=== PATIENT | male | born 1935 | race Caucasian/White ===

== ENCOUNTER → 2016-10-16 | Outpatient (CLI) | payer OTHER | LOC: MMPC 09:00 | PROVIDERS: ATTEND Physician Assistant Medical | DX: K13.79 Other lesions of oral mucosa (principal) | CPT/HCPCS: 99213; G0463 ==

== ENCOUNTER → 2016-10-19 | Outpatient (CLI) | payer OTHER ==
[2016-10-19 08:38] LABS: BASOPHILS # (AUTO) 0.05 10*3/UL; BASOPHILS % (AUTO) 0.8 % (0-1); EOSINOPHILS % (AUTO) 5.4 % (0-8); HEMATOCRIT 41.9 % (42.0-52.0); HEMOGLOBIN 13.7 g/dL (14.0-18.0); IMM GRAN % (AUTO) 0 % (0-5); IMM GRAN# (AUTO) 0 10*3/UL; LYMPHOCYTES # (AUTO) 1.44 10*3/uL; LYMPHOCYTES % (AUTO) 22.7 % (10-50); MEAN CORPUSCULAR HGB CONC 32.7 g/dL (33-37); MEAN PLATELET VOLUME 9.5 FL (7.4-12.2); MONOCYTES # (AUTO) 0.59 10*3/UL (0.3-0.8); MONOCYTES % (AUTO) 9.3 % (5-15); NEUTROPHILS # (AUTO) 3.93 10*3/UL; NEUTROPHILS % (AUTO) 61.8 % (50-80); RDW COEFFICIENT OF VARIATION 13.6 % (11.5-14.5); RED BLOOD COUNT 4.56 10^6/uL (4.70-6.10); WHITE BLOOD COUNT 6.35 10^3/uL (4.8-10.8)
[2016-10-19 08:54] LABS: PLATELET MORPHOLOGY COMMENT NORMAL MORPHOLOGY (NORM)
[2016-10-19 09:04] LABS: BILIRUBIN,TOTAL 0.9 mg/dL (0.3-1.2); BLOOD UREA NITROGEN 15 mg/dL (7-22); BUN/CREATININE RATIO 16.66 (6-20); CALCIUM 9.4 mg/dL (8.7-10.7); CHLORIDE 102 meq/L (98-112); CREATININE 0.9 mg/dL (0.70-1.50); GLUCOSE 80 mg/dL (78-110); POTASSIUM 4.4 meq/L (3.8-5.2); SODIUM 142 meq/L (135-145)
[2016-10-19 09:05] LABS: ASPARTATE AMINO TRANSFERASE 37 IU/L (21-57); HDL CHOLESTEROL 53 mg/dL (40-150); TOTAL PROTEIN 8.1 g/dL (6.1-8.0); TRIGLYCERIDES 81 mg/dL (44-200)
== END ==
LOC: LAB 07:57
PROVIDERS: ATTEND Internal Medicine
DX: E78.5 Hyperlipidemia, unspecified (principal); J44.9 Chronic obstructive pulmonary disease, unspecified; N40.0 Benign prostatic hyperplasia without lower urinary tract symptoms; Z12.5 Encounter for screening for malignant neoplasm of prostate
CPT/HCPCS: 36415; 80053; 80061; 82550; 84443; 85025; G0103

== ENCOUNTER → 2016-10-23 | Outpatient (CLI) | payer OTHER ==
[2016-10-24 13:15] LABS: A/G RATIO 0.91 (()); ALB PEP SER 3.4 g/dL (3.4-4.7); ALP1 GLOB 0.3 g/dL (0.1-0.3); GAMMA GLOBS 1.6 g/dL (0.6-1.6); TOT PRT SERUM 7.2 g/dL (6.3 - 7.9)
[2016-10-24 14:22] LABS: IMPRESSION SEE COMMENTS (())
== END ==
LOC: MOB LAB 09:16
PROVIDERS: ATTEND Internal Medicine
DX: E88.09 Other disorders of plasma-protein metabolism, not elsewhere classified (principal); R74.8 Abnormal levels of other serum enzymes
CPT/HCPCS: 82085; 84155; 84165; 99214

== ENCOUNTER → 2016-11-06 | Outpatient (CLI) | payer OTHER | LOC: MMPC 10:00 | PROVIDERS: ATTEND Physician Assistant | DX: R29.6 Repeated falls (principal); R26.81 Unsteadiness on feet; R26.89 Other abnormalities of gait and mobility; Z98.1 Arthrodesis status | CPT/HCPCS: 99214; G0463 ==

== ENCOUNTER → 2016-11-20 | Outpatient (CLI) | payer OTHER ==
--- NOTE | 2016-11-20 13:09 | DI ---
MRI CERVICAL SPINE W/O CN,11/20/2016 8:53 AM: Clinical History: The cervical myelopathy. Previous Exam: None at this facility. Findings: Multiplanar MR images are obtained through the cervical spine without contrast. The posterior fossa is unremarkable. Alignment is anatomic. Signal within the spinal cord is unremarkable. There is normal caliber and signal characteristics. Individual intervertebral disc spaces: C2/C3: There is a broad-based disc bulge with some facet and ligamentum flavum hypertrophy contributi ng to mild central canal stenosis and mild right neuroforaminal narrowing. C3/4: There is disc desiccation and a broad-based disc bulge with some uncovertebral joint osteophyte formation and some mild facet hypertrophy contributing to moderate right neural foraminal narrowing and mild central canal stenosis. C4/5: There is grade 1 anterolisthesis of C4 on C5 with annular fissuring and a broad-based disc bulg e contributing to mild to moderate central canal stenosis with moderate left and mild right neurofora pretty narrowing. C5/6: There is grade 1 anterolisthesis of C5 on C6 with disc desiccation and a broad-based disc bulge causing mild central canal stenosis and mild right neuroforaminal narrowing. C6/7: There is disc desiccation and near complete loss of intervertebral vertebral disc height with a broad-based disc bulge combining with some facet hypertrophy to cause moderate to severe central can al stenosis with moderate to severe bilateral neural foraminal narrowing. C7/T1: No significant stenosis. Impression: C2/C3: There is a broad-based disc bulge with some facet and ligamentum flavum hypertrophy contribut ing to mild central canal stenosis and mild right neuroforaminal narrowing. C3/4: There is disc desiccation and a broad-based disc bulge with some uncovertebral joint osteophyte formation and some mild facet hypertrophy contributing to moderate right neural foraminal narrowing and mild central canal stenosis. C4/5: There is grade 1 anterolisthesis of C4 on C5 with annular fissuring and a broad-based disc bulg e contributing to mild to moderate central canal stenosis with moderate left and mild right neurofora pretty narrowing. C5/6: There is grade 1 anterolisthesis of C5 on C6 with disc desiccation and a broad-based disc bulge causing mild central canal stenosis and mild right neuroforaminal narrowing. C6/7: There is disc desiccation and near complete loss of intervertebral vertebral disc height with a broad-based disc bulge combining with some facet hypertrophy to cause moderate to severe central can al stenosis with moderate to severe bilateral neural foraminal narrowing.
--- NOTE | 2016-11-20 14:33 | DI ---
XR HAND MIN 3VW,11/20/2016 1:48 PM: Clinical History: Right hand pain Previous Exam: None at this facility. Findings: Multiple views of the right hand are obtained, and demonstrate anatomic alignment without fractures. There is loss of joint space throughout all of the interphalangeal joints. The surrounding soft tissues are unremarkable. Osteoarthritis is noted of the right distal radial ulnar joint. There is also dystrophic calcificatio ns near the distal ulna at the ulnar carpal joint. Impression: Diffuse degenerative changes of the right hand most consistent with osteoarthritis.
== END ==
LOC: MOB RAD 08:47 → MRI 08:47
PROVIDERS: ATTEND Physician Assistant
DX: G95.89 Other specified diseases of spinal cord (principal); M79.641 Pain in right hand; S60.221A Contusion of right hand, initial encounter; W22.8XXA Striking against or struck by other objects, initial encounter
CPT/HCPCS: 72141; 73130

== ENCOUNTER → 2016-11-21 | Outpatient (CLI) | payer OTHER ==
--- NOTE | 2016-11-21 11:09 | DI ---
MRI THORACIC SPINE W/O CN,11/21/2016 9:45 AM: Clinical History: Thoracic myelopathy Previous Exam: None at this facility. Findings: Multiplanar MR images are obtained through the thoracic spine without contrast. There are diffuse degenerative changes predominantly involving the lower cervical spine. Visualized portions of the intra-abdominal structures are unremarkable. There is mild muscular atroph y of the paraspinal muscles. There is some facet hypertrophy. The spinal cord descends normally with normal course, caliber and signal characteristics. The conus l ies at the L1 level. Individual intervertebral disc spaces: C7/T1: There are no axial images through this level, which limits evaluation however, there is disc desiccation, loss of intervertebral disc height, annular fissuring and some osteophyte formation cont ributing to severe bilateral neural foraminal narrowing. T1/T2: No significant stenosis. T2/3: No significant stenosis. T3/4: No significant stenosis. T4/5: No significant stenosis. T5/6: No significant stenosis. T6/7: No significant stenosis. T7/8: No significant stenosis. T8/9: No significant stenosis. T9/10: No significant stenosis. T10/11: No significant stenosis. T11/12: There is a small broad-based disc bulge with some facet hypertrophy contributing to moderate bilateral neuroforaminal narrowing. T12/L1: There is disc desiccation with some mild facet hypertrophy causing mild bilateral neural fora pretty narrowing. L1/L2: Broad-based disc bulge with some facet hypertrophy causing moderate bilateral neuroforaminal narrowing. Impression: 1. 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
== END ==
LOC: MRI 09:42
PROVIDERS: ATTEND Physician Assistant
DX: M47.14 Other spondylosis with myelopathy, thoracic region (principal); M51.14 Intervertebral disc disorders with radiculopathy, thoracic region; M51.16 Intervertebral disc disorders with radiculopathy, lumbar region
CPT/HCPCS: 72146

== ENCOUNTER → 2016-11-24 | Outpatient (CLI) | payer OTHER | LOC: MOB LAB 09:12 | PROVIDERS: ATTEND Neurological Surgery | DX: G95.9 Disease of spinal cord, unspecified (principal); R26.89 Other abnormalities of gait and mobility; G62.9 Polyneuropathy, unspecified | CPT/HCPCS: 36415; 82306; 82607; 84443; 85652; 86140; 99213; G0463 ==

== ENCOUNTER → 2016-11-29 | Outpatient (CLI) | payer OTHER ==
--- NOTE | 2016-11-29 11:45 | DI ---
CT BONE DENSITOMETRY OF THE SPINE AND HIP, 11/29/2016 9:48 AM : Clinical History: Screening for osteoporosis Previous Exam: None at this facility. 3D Quantitative CT (QCT) Bone Mineral Densitometry: The [place] scans are normal. Low dose scans are obtained of the lumbar spine and sampling is obtaine d through the midbodies of L1 and L2. The average volumetric bone mineral density (BMD) of the lumbar spine is 56.4 mg/cm3. This value corresponds to a volumetric T-score of -4.3 and Z-score of -1.3 as assessed by this BMD software. Volumetric 3D QCT and areal DEXA T-scores and Z-scores are not directl y equivalent. Using the [employer]'s (ACR) volumetric QCT trabecular spine BMD con version table that is closely equivalent to the areal WHO diagnostic categories, this patient falls i nto the category of osteopenia. CT X-Ray Absorptiometry (CTXA) Hip Bone Mineral Densitometry: Low dose scans are obtained through the hips for assessment of bone mineral density (BMD) and T-score s and Z-scores of the left hip. Total hip BMD: 0.756 mg/cm2 T-score: -1.4 Z-score: Femoral neck BMD: 0.643 mg/cm2 T-score: -1.4 Z-score: Note: T-scores of the spine and hip exhibit discordant readings approximately 40% of the time in eval uated patients. Changes in BMD determined either by volumetric QCT or areal DEXA are more reliable in assessment of change in a patient's BMD status rather than changes in T-scores. The CTXA hip CT bone mineral density measurements and the resultant T-scores and Z-scores are exact hip DEXA scan equival ents. The femoral neck T-score can be used in the WHO's FRAX program for assessing an untreated patie nt's 10 year fracture risk. READING: Osteopenia of the lumbar spine and left proximal femur.
== END ==
LOC: CT 09:40
PROVIDERS: ATTEND Neurological Surgery
DX: Z13.820 Encounter for screening for osteoporosis (principal)
CPT/HCPCS: 77078

== ENCOUNTER → 2016-11-30 | Outpatient (CLI) | payer OTHER ==
--- NOTE | 2016-11-30 11:17 | DI ---
CT CTA HEAD W/WO,11/30/2016 9:53 AM: Clinical History: Vertebral basilar insufficiency. Previous Exam: CT head performed September 12, 2007 MRI brain performed April 06, 2016 Findings: Multiple helically acquired CT images images are obtained through the brain following the intravenous administration of 75 cc of Isovue 300, and demonstrate normal-appearing vertebral arteries bilateral ly. The basilar artery is unremarkable. The middle cerebral arteries are normal. The anterior cerebra l arteries and the anterior communicating artery is intact. There is diffuse age-related volume loss. The paranasal sinuses are unremarkable. The intraorbital structures are also unremarkable. There is no aneurysmal dilation. Impression: Mild diffuse age-related volume loss. Normal CT angiogram of the brain.
== END ==
LOC: CT 09:48
PROVIDERS: ATTEND Neurological Surgery
DX: G45.0 Vertebro-basilar artery syndrome (principal)
CPT/HCPCS: 70496

== ENCOUNTER → 2016-12-01 | Outpatient (CLI) | payer OTHER ==
[2016-12-01 09:57] LABS: CREATININE 0.9 mg/dL (0.70-1.50)
--- NOTE | 2016-12-01 15:39 | DI ---
CT CTA NECK W/WO CN,12/01/2016 9:30 AM: Clinical History: Vertebrobasilar insufficiency. Previous Exam: None at this facility. Findings: Multiple helically acquired CT images are obtained through the neck following the intravenous adminis tration of 75 mL of Isovue 300, and demonstrate normal lung apices. There is a normal three-vessel arch. A few peripheral vascular calcifications are seen. The thyroid is unremarkable. Peripheral vascular calcifications are seen within both carotid bulbs. The vertebral arteries are unremarkable with normal origins on the right brachiocephalic and the left subclavian arteries. The vertebral arteries demonstrate a normal course throughout the vertebral foramina. There is asymmetry of the vertebral arteries with the right being larger than the left. There are degenerative changes of the cervical spine with grade 1 anterolisthesis of C4 on C5. Degene rative uncovertebral joints are also noted worst at the C6/7 level. There is mild facet hypertrophy. The skull base is unremarkable as well. Impression: 1. Mild peripheral vascular disease within the carotid bulbs bilaterally. 2. Normal vertebral arteries bilaterally. 3. Diffuse degenerative changes of the cervical spine without fractures.
== END ==
LOC: CT 09:24
PROVIDERS: ATTEND Neurological Surgery
DX: G45.0 Vertebro-basilar artery syndrome (principal); I73.9 Peripheral vascular disease, unspecified; M47.892 Other spondylosis, cervical region
CPT/HCPCS: 36415; 70498; 82565; 84520

== ENCOUNTER → 2016-12-20 | Outpatient (CLI) | payer OTHER ==
[2016-12-20 13:18] LABS: BUN/CREATININE RATIO 18.88 (6-20); CALCIUM 10.1 mg/dL (8.7-10.7); CREATININE 0.9 mg/dL (0.70-1.50); POTASSIUM 4.6 meq/L (3.8-5.2)
== END ==
LOC: MOB LAB 11:29
PROVIDERS: ATTEND Internal Medicine
DX: M81.0 Age-related osteoporosis without current pathological fracture (principal)
CPT/HCPCS: 36415; 80048

== ENCOUNTER → 2016-12-26 | Outpatient (CLI) | payer OTHER | LOC: MMPC 11:11 | PROVIDERS: ATTEND Internal Medicine | DX: M81.0 Age-related osteoporosis without current pathological fracture (principal) | CPT/HCPCS: G0463; J0897 ==

== ENCOUNTER → 2017-01-24 | Outpatient (CLI) | payer OTHER ==
--- NOTE | 2017-01-24 10:43 | DI ---
RIGHT KNEE, 01/24/2017 9:18 AM: Clinical History: Primary osteoarthritis of both knees. Previous Exam: 12/03/2014. 4 views are submitted. Only the AP projection is a weightbearing view. There is no acute soft tissue, osseous, or joint abnormality. There is severe joint space narrowing of the medial compartment with moderately severe degenerative change of the patellofemoral compartment particularly between the late ral facet of the patella in the lateral femoral condyle. There is mild subluxation of the patella lat erally. Calcifications are present in the lateral meniscus indicating chondrocalcinosis. Readin. Severe degenerative arthritis of the medial compartment with moderate arthritic change in the pat ellofemoral compartment. There is mild lateral subluxation of the patella. 2. There is chondrocalcinosis.
--- NOTE | 2017-01-24 10:43 | DI ---
LEFT KNEE, 01/24/2017 8:59 AM: Clinical History: Primary osteoarthritis of both knees. Previous Exam: 03/11/2013. 4 views are submitted. Only the AP projection is a weightbearing view. There is no acute soft tissue, osseous, or joint abnormality. There is moderately severe degenerative change involving the medial a nd lateral compartments. There is mild lateral subluxation of the patella with narrowing of the joint space between the lateral facet of the patella and the lateral femoral condyle. Calcifications are p resent in the medial and lateral menisci as well as in the patellar cartilage indicating chondrocalci nosis. Readin. There is moderately severe degenerative arthritic disease of the medial and lateral compartments. There is lateral subluxation of the patella with narrowing of the joint space between the lateral fa cet of the patella and the lateral femoral condyle. 2. Chondrocalcinosis.
== END ==
LOC: MOB RAD 09:03
PROVIDERS: ATTEND Internal Medicine
DX: M17.0 Bilateral primary osteoarthritis of knee (principal); M11.261 Other chondrocalcinosis, right knee; M11.262 Other chondrocalcinosis, left knee; R60.9 Edema, unspecified; E78.5 Hyperlipidemia, unspecified; E87.8 Other disorders of electrolyte and fluid balance, not elsewhere classified
CPT/HCPCS: 73564; 99214; G0463

== ENCOUNTER → 2017-01-31 | Outpatient (CLI) | payer OTHER | LOC: MMPC 10:00 | PROVIDERS: ATTEND Neurological Surgery | DX: M47.26 Other spondylosis with radiculopathy, lumbar region (principal) | CPT/HCPCS: 99213; G0463 ==

== ENCOUNTER → 2017-02-02 | Outpatient (CLI) | payer OTHER ==
--- NOTE | 2017-02-02 08:57 | DI ---
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 Previous Exam: 09/28/2009. Technique: Sagittal and axial T2 weighted; sagittal T1 weighted and T2 STIR; and axial PD. The patient is status post anterior and posterior fusions at L4-5 with an L4 laminectomy. Posterior f usions are accomplished with metallic struts transfixed with pedicle screws between L4 and L5. The re maining vertebral bodies are of normal height, and there is mild to moderate narrowing of the disc sp aces at L1-2 and L3-4. The L2-3 disc space is of normal height. The cord terminates at T12-L1, and th e conus medullaris is normal. The T10-11 disc space is normal. T11-12 has a mild circumferentially bu lging but not herniated disc without canal or neural foraminal stenosis. There are slightly more prom inent bulging but not herniated discs at T12-L1 and L1-2 and both level show no canal or neural missy inal stenosis. L2-3 has a circumferentially bulging but not herniated disc without canal or neural fo raminal stenosis. There is a midline disc annulus tear and there are moderate hypertrophic changes of the apophyseal joints and ligamentum flavum. L3-4 has a circumferentially bulging but not herniated disc with marked hypertrophic changes of the apophyseal joints and ligamentum flavum producing spinal canal stenosis without significant neural foraminal stenosis. There is no canal or neural foraminal stenosis at L4-5 but the nerve roots bilaterally have a "clumped" appearance suggesting arachnoiditis . The L5-S1 disc space has a mild circumferentially bulging but not herniated disc without canal or n eural foraminal stenosis. There is a left lateral disc annulus tear. Readin. There is spinal canal stenosis at L3-4 secondary to a bulging but not herniated disc and marked h ypertrophic changes of the apophyseal joints and ligamentum flavum. There is no significant neural fo raminal stenosis. 2. There are bulging but not herniated discs without canal or neural foraminal stenosis at T11-12 th rough L2-3 and at L5-S1. L2-3 has a midline disc annulus tear and L5-S1 has a left lateral disc annul us tear. 3. Status post anterior and posterior fusions at L4-5 without canal or neural foraminal stenosis. Th e nerve roots at this level have a "clumped" appearance suggesting arachnoiditis. 4. The T10-11 disc space is normal.
== END ==
LOC: MRI 08:00
PROVIDERS: ATTEND Physician Assistant
DX: M47.26 Other spondylosis with radiculopathy, lumbar region (principal); M47.816 Spondylosis without myelopathy or radiculopathy, lumbar region; M47.814 Spondylosis without myelopathy or radiculopathy, thoracic region
CPT/HCPCS: 72148

== ENCOUNTER → 2017-02-07 | Outpatient (CLI) | payer OTHER ==
--- NOTE | 2017-02-07 11:53 | DI ---
LUMBAR SPINE SERIES, 02/07/2017 9:57 AM: Clinical History: Back pain. Previous Exam: 09/22/2010. Upright AP and lateral and upright lateral flexion and extension views are submitted. The vertebral b odies are of normal height and size. The patient is status post anterior and posterior fusions at L4- 5 with an L4 laminectomy. The anterior fusion is solid. Posterior fusion is accomplished with metalli c struts transfixed with pedicle screws between L4 and L5 as well as bone grafts. Posterior fusions a ppear solid. There is disc space narrowing at L3-4 and the remaining disc spaces are of normal height . In the neutral position and with extension, the posterior alignment is normal but with flexion, the re is a grade 1 spondylolisthesis at L3-4 indicating motion at this level. On the previous study, no motion was identified at L3-4. The remaining pedicles and posterior elements are unremarkable. Both S I joints are normal. Readin. The patient has developed disc space narrowing at L3-4 with instability demonstrated by flexion a nd extension maneuvers. These changes are new since the previous study of 09/22/2010. 2. Status post L4 laminectomy with anterior and posterior fusions at L4-5. The anterior and posterio r fusions are solid.
== END ==
LOC: RAD 11:02
PROVIDERS: ATTEND Neurological Surgery
DX: M54.5 Low back pain (principal); M43.16 Spondylolisthesis, lumbar region; M48.06 Spinal stenosis, lumbar region; Z98.1 Arthrodesis status
CPT/HCPCS: 72110

== ENCOUNTER → 2017-03-06 | Outpatient (CLI) | payer OTHER ==
[2017-03-06 09:01] LABS: HEMATOCRIT 43.1 % (42.0-52.0); HEMOGLOBIN 14.2 g/dL (14.0-18.0); MEAN CORPUSCULAR HEMOGLOBIN 29.9 PG (27-31); MEAN CORPUSCULAR HGB CONC 32.9 g/dL (33-37); MEAN CORPUSCULAR VOLUME 90.7 FL (80-90); MEAN PLATELET VOLUME 9.3 FL (7.4-12.2); RED BLOOD COUNT 4.75 10^6/uL (4.70-6.10)
[2017-03-06 09:27] LABS: CALCIUM 9.7 mg/dL (8.7-10.7); SERUM ALBUMIN 4.3 g/dL (3.5-4.8)
--- NOTE | 2017-03-06 09:35 | EKG ---
[address] [place] [address] Measurements Intervals [place] Rate: 65 P: 65 HI: 161 QRS: -52 QRSD: 138 T: -3 QT: 420 QTc: 431 Interpretive Statements SINUS RHYTHM WITH MARKED SINUS ARRHYTHMIA INTRAVENTRICULAR CONDUCTION DELAY LEFT ANTERIOR FASICULAR BLOCK Compared to ECG 12/04/2013 07:13:21 Left-axis deviation no longer present Electronically Signed On 03-06-17 12:54:10 MDT by Jc Perez [id number]
== END ==
LOC: LAB 08:14
PROVIDERS: ATTEND Neurological Surgery
DX: M48.06 Spinal stenosis, lumbar region (principal); I45.89 Other specified conduction disorders; I44.4 Left anterior fascicular block
CPT/HCPCS: 36415; 80053; 85027; 86850; 86900; 86901; 93005; 93010

== ENCOUNTER → 2017-03-13 | Outpatient (CLI) | payer OTHER | LOC: MOB LAB 14:16 | PROVIDERS: ATTEND Internal Medicine | DX: M48.06 Spinal stenosis, lumbar region (principal); R60.9 Edema, unspecified; R94.31 Abnormal electrocardiogram [ECG] [EKG] | CPT/HCPCS: 36415; 83880 ==

== ENCOUNTER → 2017-03-23 | Outpatient (CLI) | payer OTHER ==
--- NOTE | 2017-03-30 08:39 | DI ---
XR CXR 2VW PA/LAT,03/23/2017 9:25 AM: Clinical History: Injury Previous Exam: March 25, 2012 Findings: PA and lateral views of the chest are obtained, and demonstrate diffuse COPD. Multiple rib fractures are noted on the right. There is a lucency within the right proximal humerus which is not well evaluated on this exam, but ap pears to have a narrow zone of transition with no apparent periosteal reaction. There is no infiltrate nor effusion. There is no subdiaphragmatic free air. Impression: 1. No acute disease. 2. Hypodense 15 mm lesion within the right proximal humerus without associated periosteal reaction. R ecommend plain films for further evaluation.
== END ==
LOC: MOB RAD 09:32 → RAD 09:32
PROVIDERS: ATTEND Physician Assistant Medical
DX: R07.81 Pleurodynia (principal); S29.9XXA Unspecified injury of thorax, initial encounter; J44.9 Chronic obstructive pulmonary disease, unspecified; I25.10 Atherosclerotic heart disease of native coronary artery without angina pectoris; W18.09XA Striking against other object with subsequent fall, initial encounter
CPT/HCPCS: 71020; 99213; G0463

== ENCOUNTER 2017-04-05 02:14 | Emergency (ER) | payer OTHER ==
[2017-04-05 02:31] LABS: BILIRUBIN,URINE NEGATIVE (NEG); CLARITY,URINE CLEAR (CLEAR); COLOR,URINE YELLOW; GLUCOSE, URINE (UA) NEGATIVE (NEG); NITRATE,URINE NEGATIVE (NEG); OCCULT BLOOD,URINE TRACE (NEG); PROTEIN,URINE NEGATIVE (NEG); UROBILINOGEN,URINE 0.2 EU/dL (0.2)
[2017-04-05 02:44] LABS: RBC,URINE RARE /hpf; URINE SAMPLE TYPE CLEAN CATCH URINE
[2017-04-05] MEDS ORDERED: Phenazopyridine Tab 200 MG TAB PO ONE (03:10)
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
[2017-04-05 04:30] VITALS: RESP 18; TEMP 97.8
== END 2017-04-05 03:35 | disposition home or self-care (01) ==
LOC: ER 02:14
DX: N99.89 Other postprocedural complications and disorders of genitourinary system (principal); R35.0 Frequency of micturition; R30.0 Dysuria
CPT/HCPCS: 81001; 81003; 99282

== ENCOUNTER → 2017-05-15 | Outpatient (CLI) | payer OTHER ==
--- NOTE | 2017-05-15 09:40 | EKG ---
[address] [place] [address] Measurements Intervals [place] Rate: 56 P: 57 CO: 163 QRS: -64 QRSD: 121 T: 12 QT: 419 QTc: 409 Interpretive Statements SINUS RHYTHM LEFT ANTERIO HEMIBLOCK MODERATE INTRAVENTRICULAR CONDUCTION DELAY [ Compared to ECG 03/06/2017 08:26:15 Left anterior hemiblock now present Sinus arrhythmia no longer present Electronically Signed On 05-15-17 14:29:59 MDT by Jc Perez [id number]
== END ==
LOC: MOB EKG 09:26
PROVIDERS: ATTEND Specialist
DX: I25.10 Atherosclerotic heart disease of native coronary artery without angina pectoris (principal); I35.8 Other nonrheumatic aortic valve disorders; I45.89 Other specified conduction disorders; E78.5 Hyperlipidemia, unspecified; R29.6 Repeated falls; I44.4 Left anterior fascicular block; F17.211 Nicotine dependence, cigarettes, in remission; Z86.73 Personal history of transient ischemic attack (TIA), and cerebral infarction without residual deficits
CPT/HCPCS: 93005; 93010; 99204; G0463

== ENCOUNTER → 2017-05-28 | Outpatient (CLI) | payer OTHER ==
[2017-05-28 17:03] LABS: BASOPHILS # (AUTO) 0.05 10*3/UL; BASOPHILS % (AUTO) 0.6 % (0-1); EOSINOPHILS # (AUTO) 0.16 10*3/UL; EOSINOPHILS % (AUTO) 2.1 % (0-8); HEMATOCRIT 39.2 % (42.0-52.0); HEMOGLOBIN 12.8 g/dL (14.0-18.0); LYMPHOCYTES # (AUTO) 1.77 10*3/uL; MEAN CORPUSCULAR HEMOGLOBIN 29.9 PG (27-31); MEAN CORPUSCULAR HGB CONC 32.7 g/dL (33-37); MEAN CORPUSCULAR VOLUME 91.6 FL (80-90); MEAN PLATELET VOLUME 9.7 FL (7.4-12.2); MONOCYTES # (AUTO) 0.64 10*3/UL (0.3-0.8); MONOCYTES % (AUTO) 8.3 % (5-15); NEUTROPHILS # (AUTO) 5.12 10*3/UL; NEUTROPHILS % (AUTO) 66.1 % (50-80); RED BLOOD COUNT 4.28 10^6/uL (4.70-6.10)
[2017-05-28 17:04] LABS: PLATELET MORPHOLOGY COMMENT NORMAL MORPHOLOGY (NORM); RBC MORPHOLOGY COMMENT NORMAL MORPHOLOGY (NORM); WBC MORPHOLOGY COMMENT NORMAL MORPHOLOGY (NORM)
[2017-05-28 17:32] LABS: CALCIUM 9.5 mg/dL (8.7-10.7)
== END ==
LOC: MOB LAB 16:29
PROVIDERS: ATTEND Internal Medicine
DX: E87.8 Other disorders of electrolyte and fluid balance, not elsewhere classified (principal); R53.1 Weakness
CPT/HCPCS: 36415; 80053; 85025

== ENCOUNTER → 2017-06-05 | Outpatient (CLI) | payer OTHER ==
--- NOTE | 2017-06-05 20:00 | DI ---
MRI BRAIN SCAN WITHOUT IV CONTRAST, 06/05/2017 2:54 PM: Clinical History: Disequilibrium syndrome. Previous Exam: 04/06/2016. Sequences: Sagittal T1; Axial SHYANN T2 and FLAIR. Axial diffusion weighted images with ADC mapping were also performed. The fourth ventricle is of normal size, shape, position and contour. The third and lateral ventricles are moderately dilated but are otherwise normal. There are multiple punctate periventricular white m atter hyperintensities bilaterally that extend into the watershed territory, consistent with small ve ssel ischemic disease. This amount of ischemic disease is increased for the patient's age. There is n o significant cerebellar atrophy and there is moderate cerebral atrophy. No cerebellopontine angle ma ss is present. The limited views of the seventh and eighth nerves in the internal auditory canals marybeth ear normal. Diffusion weighted imaging with ADC mapping is normal. There are no extracerebral mantels or shift of the midline structures. The paranasal sinuses are normal. Readin. Moderate to moderately severe small vessel ischemic disease. 2. Moderate cerebral atrophy. 3. There is no cerebellopontine angle mass or evidence of obvious abnormality of the seventh and eig hth nerves in the internal auditory canals. 4. Diffusion weighted imaging with ADC mapping is normal.
== END ==
LOC: MRI 14:49
PROVIDERS: ATTEND Internal Medicine
DX: E87.8 Other disorders of electrolyte and fluid balance, not elsewhere classified (principal); I99.8 Other disorder of circulatory system
CPT/HCPCS: 70551

== ENCOUNTER → 2017-06-06 | Outpatient (CLI) | payer OTHER ==
--- NOTE | 2017-06-06 20:23 | DI ---
MRI LUMBAR SPINE SCAN WITHOUT IV CONTRAST, 06/06/2017 2:52 PM: Clinical History: Right leg weakness. Previous Exam: 02/02/2017. Technique: Sagittal and axial T2 weighted; sagittal T1 weighted and T2 STIR; and axial PD. The vertebral bodies are of normal height and size. The patient is status post laminectomy at L3 with a fluid collection posteriorly in the midline. This fluid collection either represents a postoperati ve seroma or less likely a pseudomeningocele. The patient is also status post laminectomy at L4 with anterior and posterior fusions at L4-5. Posterior fusions are accomplished with metallic struts trans fixed with pedicle screws between L4 and L5. The cord terminates at L1. The conus medullaris is gilbert l. There is a mild circumferentially bulging but not herniated disc at T11-12. There are more promine nt circumferentially bulging but not herniated discs between T12-L1 through L3-4. No canal or neural foraminal stenosis is present at these levels. L2-3 has a midline disc annulus tear. There is no theodore l or neural foraminal stenosis at L4-5. L5-S1 has a left lateral disc annulus tear but otherwise is n ormal. There is no clumping of the nerve roots to indicate arachnoiditis. Readin. The patient has had an L3 laminectomy since the prior study from 02/02/2017. There is either a pos toperative seroma at this location or there is a pseudomeningocele. The latter choice is felt to be l ess likely. There are anterior and posterior fusions at L4-5 without canal or neural foraminal stenos is. 2. There are bulging but not herniated discs without canal or neural foraminal stenosis from T11-12 to the L3-4 disc space. There is a midline disc annulus tear at L2-3. 3. The L5-S1 disc space is unremarkable except for a left lateral disc annulus tear.
== END ==
LOC: MRI 14:47
PROVIDERS: ATTEND Internal Medicine
DX: M62.81 Muscle weakness (generalized) (principal); M47.814 Spondylosis without myelopathy or radiculopathy, thoracic region
CPT/HCPCS: 72148

== ENCOUNTER 2017-07-04 22:40 | Inpatient (IN) ==
[2017-07-04] MEDS ORDERED: ONDANSETRON 4 MG/2 ML VIAL ONE (23:00)
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
[2017-07-04] MEDS ORDERED: Sodium Chloride 0.9% 1,000 ML PRIMARY IV ONE ×2 (23:13→23:57)
[2017-07-04] MEDS ORDERED: ONDANSETRON 4 MG/2 ML VIAL IVP ONE (23:13)
[2017-07-04] MEDS ORDERED: fentaNYL Inj 100 MCG/2 ML VIAL IVP ONE ×2 (23:13→23:31)
[2017-07-04] MEDS ORDERED: NORMAL SALINE 10 ML SYRINGE FLUSH IVP PRN (23:13)
[2017-07-04 23:22] LABS: BASOPHILS # (AUTO) 0.05 10*3/UL; BASOPHILS % (AUTO) 0.7 % (0-1); EOSINOPHILS # (AUTO) 0.31 10*3/UL; EOSINOPHILS % (AUTO) 4.2 % (0-8); Hematocrit [HCT] 44.3 % (42.0-52.0); Hemoglobin [HGB] 14.8 g/dL (14.0-18.0); LYMPHOCYTES # (AUTO) 2.16 10*3/uL; MEAN CORPUSCULAR HEMOGLOBIN 30.2 PG (27-31); MEAN CORPUSCULAR HGB CONC 33.4 g/dL (33-37); MEAN CORPUSCULAR VOLUME 90.4 FL (80-90); MEAN PLATELET VOLUME 10.3 FL (7.4-12.2); MONOCYTES # (AUTO) 0.65 10*3/UL (0.3-0.8); MONOCYTES % (AUTO) 8.8 % (5-15); NEUTROPHILS # (AUTO) 4.22 10*3/UL; NEUTROPHILS % (AUTO) 56.9 % (50-80)
[2017-07-04 23:27] LABS: PLATELET MORPHOLOGY COMMENT NORMAL MORPHOLOGY (NORM); RBC MORPHOLOGY COMMENT NORMAL MORPHOLOGY (NORM); WBC MORPHOLOGY COMMENT NORMAL MORPHOLOGY (NORM)
[2017-07-04 23:33] LABS: BLOOD UREA NITROGEN 21 mg/dL (7-22); BUN/CREATININE RATIO 23.33 (6-20); LIPASE 93 IU/L (23-300); SERUM ALBUMIN 4.7 g/dL (3.5-4.8)
[2017-07-05] MEDS ORDERED: fentaNYL Inj 100 MCG/2 ML VIAL IVP ONE (00:50)
--- NOTE | 2017-07-05 01:03 | DI ---
EXAM: CT Abdomen and Pelvis With Intravenous Contrast CLINICAL HISTORY: Physician Notes: Tech Comments: TECHNIQUE: Axial computed tomography images of the abdomen and pelvis with intravenous contrast. COMPARISON: No relevant prior studies available. FINDINGS: Lower thorax: No acute findings. ABDOMEN: Liver: Mild intrahepatic biliary dilatation. Gallbladder and bile ducts: Cholecystectomy. Pancreas: Unremarkable. No mass. No ductal dilation. Spleen: Unremarkable. No splenomegaly. Adrenals: Unremarkable. No mass. Kidneys and ureters: Renal hypodensities statistically cysts. Stomach and bowel: Multiple fluid-filled mildly dilated loops of small bowel. Mild associated mesenteric stranding and small amount of fluid. Possible transition point in the left abdomen. Appendix: The appendix is not confidently identified. PELVIS: Bladder: Multiple bladder diverticula. Reproductive: Unremarkable as visualized. ABDOMEN and PELVIS: Intraperitoneal space: Trace free fluid. Bones/joints: No acute fracture. No dislocation. Soft tissues: Unremarkable. Vasculature: Unremarkable. No abdominal aortic aneurysm. Lymph nodes: Unremarkable. No enlarged lymph nodes. Other findings: IMPRESSION: 1. Multiple fluid-filled mildly dilated loops of small bowel. Mild associated mesenteric stranding and small amount of fluid. Possible transition point in the left abdomen. Question obstruction, ileus, enterocolitis. 2. Cholecystectomy. 3. Multiple bladder diverticula.
[2017-07-05] MEDS ORDERED: ONDANSETRON 4 MG/2 ML VIAL IVP ONE (01:14)
[2017-07-05 01:15] LABS: BILIRUBIN,URINE NEGATIVE (NEG); CLARITY,URINE CLEAR (CLEAR); COLOR,URINE YELLOW (Y); GLUCOSE, URINE (UA) NEGATIVE (NEG); NITRATE,URINE NEGATIVE (NEG); OCCULT BLOOD,URINE Trace-intact (NEG); PROTEIN,URINE NEGATIVE (NEG); UROBILINOGEN,URINE 0.2 EU/dL (0.2)
[2017-07-05 01:23] LABS: BACTERIA,URINE RARE; SQUAMOUS EPITHELIAL CELL,UR RARE
[2017-07-05] MEDS ORDERED: METOPROLOL TARTRATE 5 MG/5 ML VIAL IVP PRN (01:43)
--- NOTE | 2017-07-05 01:48 | PDOC ---
HPI - History of Present Illness History of Present Illness: This very nice 81-year-old gentleman who started having some abdominal pain around 3 PM crampy like more generalized than anything therefore decided to be seen in the ER because he started having nausea and vomiting as well he has not thrown up any blood in his past medical history significant for both appendectomy and cholecystectomy and this is first time having a small bowel obstruction diagnosed by CT scan. Patient is distended he had as a upright films in radiology department is speaking in full sentences pain is not excruciating he states it is tolerable stress case with and nursing Past Medical History Medical History: Hypercholesterolemia, GERD Surgical History: Cholecystectomy, appendectomy Tobacco Use: Never Smoker In the Past 12 Months, Have Used or Abuse Any of the Following Substance: None Medication / Allergies Home Medications: Home Medications Medication Instructions Recorded Confirmed Type [id number] [Beano] 1 ea PO PRN 07/27/11 07/04/17 History Ascorbic Acid [Vitamin C] 1 tab PO DAILY 06/04/12 07/04/17 History Calcium Carbonate/Vitamin D3 1 ea PO BID 06/04/12 07/04/17 History [Calcium 600-Vit D3 400 Caplet] Albuterol Sulfate [Proair Hfa] 1 - 2 puff INH Q4-6H PRN #2 puff 10/23/16 History Omeprazole 1 cap PO DAILY #90 cap 11/08/16 07/04/17 Rx Denosumab [Prolia] 1 ml SUBCUT every 6 months #0 ml 12/20/16 07/04/17 Rx Pravastatin Sodium [Pravachol] 1 tab PO DAILY #90 tab 01/24/17 07/04/17 Rx Acetaminophen with Codeine 0.5 - 1 tab PO Q4-6H #20 tab 03/23/17 07/04/17 Rx [Tylenol With Codeine #3 Tablet] Metoprolol Tartrate 0.5 tab PO BID #60 tab 05/28/17 07/04/17 Rx Tramadol HCl 1 tab PO QID PRN #60 tab 05/28/17 07/04/17 History Allergies/Adverse Reactions: Allergies 3 Allergy/AdvReac Type Severity Reaction Status Date / Time No Known Drug Allergies Allergy NOT Verified 07/04/17 22:45 APPLICABLE Review of Systems - Review of Systems All Systems: Reviewed & No Additional Complaints Except as Stated - Respiratory Respiratory: DENIES: Negative System Review, Cough, Sputum, Dyspnea At Rest, Dyspnea with Exertion, Pleuritic Pain, Hemoptysis, Wheezing, Other, See HPI - Cardiovascular Cardiovascular: DENIES: Negative System Review, Chest Pain, Edema, Syncope, Palpitations, Orthopnea, Paroxysmal Nocturnal Dyspnea, Other, See HPI - Gastrointestinal Gastrointestinal / Abdominal: REPORTS: Nausea, Vomiting, Constipation, Abdominal Pain, Bloating - Genitourinary Genitourinary: DENIES: Negative System Review, Pain, Burning, Hematuria, Incontinence, Urgency, Hesitant Stream, Decreased Stream, Nocutria, Discharge, Sexual Dysfunction, Other, See HPI Exam - Vitals Vital Signs: Vital Signs Temperature 97 F Temperature Source Temporal Artery Scan Pulse Rate [Pulse Oximeter] 61 Respiratory Rate 20 Blood Pressure [Left Arm] 131/63 Pulse Ox 93 Oxygen Delivery Method Room Air Height 5 ft 9 in Weight 200 lb - General General Appearance: No Acute Distress, Cooperative - Head Head Exam: Normocephalic, Atraumatic - Eye Eye Exam: POSITIVE: Normal Appearance - Respiratory Respiratory Exam: POSITIVE: Clear to Auscultation - Bilaterally, Breathing Non Labored, Normal To Percussion - Cardiovascular Cardiovascular Exam: POSITIVE: RRR, No Murmur, No Clicks, No Gallops - GI/Abdominal Additional GI/Abdominal Exam Details: Patient is distended with some guarding and pain was generalized - Extremities Extremities Exam: POSITIVE: No Clubbing Present, No Edema Present Results - Labs CBC and BMP: 07/05/17 09:31 07/05/17 09:31 Assessment and Plan - Patient Problems (1) Small bowel obstruction Current Visit: Yes Status: Acute Comment: Continue NG tube repeat films show multiple fluid bowel loops and a big stool collection. Patient is distended I did speak with Dr. Harper and I told him about what I had seen on the films he said he would speak with the radiologist and decide on possible surgery if needed continue IV morphine for pain and IV Protonix. Defer to surgical team for further treatment and plan Code(s): K56.69 - Other intestinal obstruction (2) HTN (hypertension) Current Visit: Yes Status: Acute Comment: hold po bb start iv pt is npo sec to sbo Code(s): I10 - Essential (primary) hypertension
[2017-07-05] MEDS ORDERED: LIDOCAINE W/ SODIUM BICARB 0.5 ML SYR SUBD PRN ×2 (02:11→13:56)
[2017-07-05] MEDS ORDERED: NORMAL SALINE 10 ML SYRINGE FLUSH IVP PRN ×2 (02:11→13:56)
[2017-07-05] MEDS ORDERED: KETOROLAC 15 MG/1 ML VIAL IVP PRN (02:11)
[2017-07-05] MEDS: fentaNYL Inj 100 MCG/2 ML VIAL IVP PRN ×2 (02:59→04:46)
[2017-07-05] MEDS ORDERED: HEPARIN 5000 UNIT/1 ML SUBCUT SCH (03:00)
[2017-07-05] MEDS: Sodium Chloride 0.9% 1,000 ML PRIMARY IV SCH ×2 (03:00→17:12)
[2017-07-05] MEDS: ONDANSETRON 4 MG/2 ML VIAL IVP PRN (04:47)
[2017-07-05 09:34] LABS: BASOPHILS # (AUTO) 0 10*3/UL; BASOPHILS % (AUTO) 0 % (0-1); EOSINOPHILS # (AUTO) 0 10*3/UL; EOSINOPHILS % (AUTO) 0 % (0-8); Hematocrit [HCT] 44.7 % (42.0-52.0); Hemoglobin [HGB] 14.8 g/dL (14.0-18.0); LYMPHOCYTES # (AUTO) 0.42 10*3/uL; MEAN CORPUSCULAR HEMOGLOBIN 29.8 PG (27-31); MEAN CORPUSCULAR HGB CONC 33.1 g/dL (33-37); MEAN CORPUSCULAR VOLUME 90.1 FL (80-90); MEAN PLATELET VOLUME 9.3 FL (7.4-12.2); MONOCYTES # (AUTO) 0.38 10*3/UL (0.3-0.8); MONOCYTES % (AUTO) 2.9 % (5-15); NEUTROPHILS % (AUTO) 93.8 % (50-80); RED BLOOD COUNT 4.96 10^6/uL (4.70-6.10)
[2017-07-05 09:45] LABS: BLOOD UREA NITROGEN 18 mg/dL (7-22); SERUM ALBUMIN 4.4 g/dL (3.5-4.8)
[2017-07-05 09:58] LABS: PLATELET MORPHOLOGY COMMENT NORMAL MORPHOLOGY (NORM); RBC MORPHOLOGY COMMENT NORMAL MORPHOLOGY (NORM); WBC MORPHOLOGY COMMENT NORMAL MORPHOLOGY (NORM)
[2017-07-05] MEDS: Pantoprazole Inj 40 MG in Normal Saline Flush 10 ML IVP SCH (10:05)
--- NOTE | 2017-07-05 10:39 | DI ---
XR ABDOMEN KUB UPRIGHT,07/05/2017 9:12 AM: Clinical History: Small bowel obstruction Previous Exam: August 27, 2006 Findings: 2 views of the abdomen and pelvis are obtained, and demonstrate a pleural effusion causing blunting o f the left cardiophrenic angle. Postsurgical changes are noted in the right upper quadrant consistent with prior cholecystectomy. Diffuse degenerative changes of the spine are seen. There is no visible nasogastric tube on these images. Patient is status post posterior transpedicular fusion of L4/5. There is intervertebral disc fusion a s well. No pathologic calcifications are seen. There are multiple air-filled loops of small bowel with multiple air-fluid levels. There is a large amount of stool within the rectal vault. Mild degenerative changes of the hips are seen. There is a calcification overlying the left midabdomen not appreciated on the prior exam. Impression: 1. Worsening small bowel obstruction. 2. No visible nasogastric tube and blunting of the left cardiophrenic angle. Recommend chest x-ray to identify the nasogastric tube and rule out the possibility of an esophageal rupture which would caus e a left pleural effusion.
[2017-07-05] MEDS ORDERED: MORPHINE SULFATE 2 MG/1 ML IVP PRN (11:02)
--- NOTE | 2017-07-05 11:21 | DI ---
XR CXR 1VW,07/05/2017 10:17 AM: Clinical History: Check nasogastric tube placement. Previous Exam: March 23, 2017 Findings: 3 AP views of the chest are obtained, and demonstrate a nasogastric tube in the stomach in good posit ion following the expected course of the esophagus. The blunting of the cardiophrenic angle is stable dating back to March of 2017. There is no infiltrate nor effusion. Impression: Nasogastric tube coiled within the stomach.
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
[2017-07-05] MEDS ORDERED: Lactated Ringers 1,000 ML PRIMARY IV ONE ×3 (13:43→15:25)
[2017-07-05] MEDS ORDERED: Lactated Ringers 1,000 ML PRIMARY IV SCH ×3 (13:45→16:00)
[2017-07-05] MEDS ORDERED: fentaNYL Inj 100 MCG/2 ML VIAL ONE ×2 (13:52→14:23)
[2017-07-05] MEDS ORDERED: MIDAZOLAM 5 MG/1 ML ONE (13:52)
[2017-07-05] MEDS ORDERED: Propofol 200 MG/20 ML VIAL IV ONE (13:53)
[2017-07-05] MEDS ORDERED: LIDOCAINE MPF 2% - 5 ML (20 MG/1 ML) ONE (13:53)
[2017-07-05] MEDS ORDERED: BUPIVACAINE 0.5% W/ EPI - 10 ML VIAL ONE (13:53)
[2017-07-05] MEDS ORDERED: ROCURONIUM 10 MG/1 ML - 5 ML VIAL IVP ONE (13:54)
[2017-07-05] MEDS ORDERED: Ertapenem Inj 1 GM in Sodium Chloride 0.9% 100 ML IV SCH (14:00)
[2017-07-05] MEDS ORDERED: LIDOCAINE W/ SODIUM BICARB 0.5 ML SYR ONE (14:21)
[2017-07-05] MEDS ORDERED: Sodium Chloride 0.9% 100 ML IV ONE (15:01)
[2017-07-05] MEDS ORDERED: ERTAPENEM 1 GM VIAL ONE (15:01)
[2017-07-05] MEDS ORDERED: ONDANSETRON 4 MG/2 ML VIAL ONE (15:10)
[2017-07-05] MEDS ORDERED: KETAMINE 100 MG/1 ML - 5 ML ONE (15:11)
[2017-07-05] MEDS ORDERED: KETOROLAC 30 MG/1 ML VIAL ONE (15:21)
[2017-07-05] MEDS ORDERED: SUGAMMADEX SODIUM 200 MG/2 ML VIAL IV ONE (15:21)
--- NOTE | 2017-07-05 15:43 | GEN.OPNOTE ---
Operative Note Surgery Date: 07/05/17 Preoperative Diagnosis: Small bowel obstruction. Postoperative Diagnosis: Small bowel obstruction secondary to adhesive band. Procedure: #1 exploratory laparotomy. #2 lysis of adhesion. Surgeon: Yovany Harper MD Anesthesia Provider: Jono Chiu CRNA Anesthesia Type: General Estimated Blood Loss (mL): 5 Fluids: 1500 mL of crystalloid. 1 g of IV Invanz at the start of the procedure. 15 mg of IV Toradol at the end of the procedure. Pathology: No specimens for pathologic analysis. Indications: X-ray and clinical findings consistent with a small bowel obstruction. Abdomen was distended and tender. X-ray showed a transition zone. He is taken for operative intervention. He had failed a trial of NG tube decompression. Findings: Solitary band of adhesions around a knuckle of bowel causing complete obstruction. Complications: None. Operative Summary: The patient was taken to the operating suite and placed on the operating table in the supine position. Following induction of general anesthetic the abdomen was prepped and draped in a sterile fashion. A surgical timeout was done. A supraumbilical incision was made and carried down to the fascia with electrocautery. The fascia was incised with electrocautery. The peritoneum was elevated and incised. I inserted a hand and almost immediately found the knuckle of small bowel with an adhesive band around it. The adhesive band was cut at each end and excised. The bowel was a bit congested but certainly viable. We watched it throughout the course of the procedure. Having resolve the adhesion I followed the bowel proximally to the ligament of Treitz. The bowel was run from the ligament of Treitz down to the ileocecal valve. There were no other areas of abnormality. Small bowel was checked again and again was clearly viable. No resection was indicated. The abdomen was completely palpated and other then dried stool in the colon there were no other abnormalities. The NG tube was palpated and was in normal position in the stomach. Extensive irrigation was done. The bowel was covered with omentum. The midline fascia was closed with running #1 Vicryl. The wound was irrigated and closed with surgical gaye followed by an appropriate dressing. The patient tolerated all aspects of the procedure well without complication. He was taken the recovery room in stable condition. All counts were correct. Patient Problems - Patient Problem List (1) Small bowel obstruction Current Visit: Yes Status: Acute Onset Date: 07/04/17 Priority: High Code(s): K56.69 - Other intestinal obstruction Category: Medical
[2017-07-05] MEDS ORDERED: PROMETHAZINE 25 MG/1 ML VIAL IM PRN (15:51)
[2017-07-05] MEDS ORDERED: fentaNYL Inj 100 MCG/2 ML VIAL IVP PRN (15:51)
--- NOTE | 2017-07-05 15:54 | CRNA.PROGR ---
Anesthesia Recovery Phase I - Post Anesthesia Evaluation Patient's Condition on Arrival in Phase I: Stable Patient's Condition on Arrival in Phase II: Stable Pain Level: 0
--- NOTE | 2017-07-05 15:56 | CRNA.PROGR ---
Anesthesia Time - - Start date: 07/05/17 End date: 07/05/17 - Procedure/Recovery Time Anesthesia : Time In: 14:43 Anesthesia : Time Out: 15:47 Anesthesia : Total Time: 64 - Total Anesthesia Time Total Anesthesia Time (minutes): 64 - Other Weight: 87.906 kg Height: 5 ft 9 in Body Mass Index (BMI): 28.6 Physical Status: P3 Anesthesia Type: General Anesthesia : ET
[2017-07-05] MEDS: HYDROmorphone 2 MG/1 ML IVP PRN (18:08)
[2017-07-05] MEDS: D5-LR + 20mEq KCL 1,000 ML PRIMARY IV SCH (18:13)
[2017-07-05] MEDS: KETOROLAC 15 MG/1 ML VIAL IVP SCH (21:40)
[2017-07-06] MEDS: HYDROmorphone 2 MG/1 ML IVP PRN ×2 (02:48→15:08)
[2017-07-06] MEDS: D5-LR + 20mEq KCL 1,000 ML PRIMARY IV SCH ×3 (02:48→22:09)
[2017-07-06] MEDS: KETOROLAC 15 MG/1 ML VIAL IVP SCH ×4 (03:32→22:09)
[2017-07-06 06:07] LABS: BASOPHILS # (AUTO) 0.02 10*3/UL; BASOPHILS % (AUTO) 0.2 % (0-1); EOSINOPHILS # (AUTO) 0.11 10*3/UL; EOSINOPHILS % (AUTO) 1.1 % (0-8); Hematocrit [HCT] 37.8 % (42.0-52.0); Hemoglobin [HGB] 12.4 g/dL (14.0-18.0); LYMPHOCYTES # (AUTO) 1.26 10*3/uL; MEAN CORPUSCULAR HEMOGLOBIN 30.2 PG (27-31); MEAN CORPUSCULAR HGB CONC 32.8 g/dL (33-37); MEAN PLATELET VOLUME 9.6 FL (7.4-12.2); MONOCYTES # (AUTO) 0.98 10*3/UL (0.3-0.8); MONOCYTES % (AUTO) 9.7 % (5-15); NEUTROPHILS # (AUTO) 7.75 10*3/UL; NEUTROPHILS % (AUTO) 76.5 % (50-80); RED BLOOD COUNT 4.11 10^6/uL (4.70-6.10)
[2017-07-06 06:14] LABS: PLATELET MORPHOLOGY COMMENT NORMAL MORPHOLOGY (NORM); RBC MORPHOLOGY COMMENT NORMAL MORPHOLOGY (NORM); WBC MORPHOLOGY COMMENT NORMAL MORPHOLOGY (NORM)
[2017-07-06 06:33] LABS: BLOOD UREA NITROGEN 17 mg/dL (7-22); BUN/CREATININE RATIO 21.25 (6-20); LIPASE 44 IU/L (23-300)
[2017-07-06] MEDS: Pantoprazole Inj 40 MG in Normal Saline Flush 10 ML IVP SCH (08:47)
[2017-07-06] MEDS: NORMAL SALINE 10 ML SYRINGE FLUSH IVP PRN (08:48)
--- NOTE | 2017-07-06 10:40 | DI ---
XR ABDOMEN KUB UPRIGHT,07/06/2017 8:54 AM: Clinical History: Obstruction Previous Exam: July 05, 2017 Findings: 3 views of the abdomen are obtained, and demonstrate multiple air-filled loops of small bowel. There is transpedicular fixation at L4/5. Patient is status post cholecystectomy. No pathologic calcifications are seen. New postsurgical changes are noted consistent with abdominal m idline surgery. There is a nasogastric tube in good position within the stomach. Impression: Air-filled loops of small bowel most consistent with a post operative ileus. Recommend continued maxi veillance.
--- NOTE | 2017-07-06 12:18 | PDOC(PROG) ---
Subjective Post Op Day: postop day 1 Joshi Catheter: Yes Flatus: Yes Diet: NPO Date and Time of Service: 07/06/2017 at 1220 Interval History: Patient states he feels better than he did yesterday. His NG tube out. Objective : Data - Labs CBC and BMP: 07/06/17 05:50 07/06/17 05:50 - Vital Signs Vital Signs and I&O: Vital Signs - Last Taken Temperature 98.6 F 07/06/17 11:17 Pulse Rate 72 07/06/17 11:17 Respiratory Rate 18 07/06/17 11:17 Blood Pressure 140/61 07/06/17 11:17 Pulse Ox 92 07/06/17 11:17 Intake and Output (24hr x 4 totals) 07/04/17 07/05/17 07/06/17 07/07/17 05:59 05:59 05:59 05:59 Intake Total 1365 / 1365 Output Total 350 / 350 1050 / 1050 Balance -350 / 150 315 / 315 Objective : Exam - General General Appearance: No Acute Distress, Cooperative - Head Head Exam: Normocephalic - Eye Eye Exam: PERRL, EOMI - Respiratory Respiratory Exam: Clear to Auscultation - Bilaterally - Cardiovascular Cardiovascular Exam: RRR - GI/Abdominal GI/Abdominal Exam: Normal Bowel Sounds, Non Tender, Non Distended, Soft Assessment and Plan - Patient Problems (1) Small bowel obstruction Current Visit: Yes Status: Acute Priority: High Onset Date: 07/04/17 Code(s): K56.69 - Other intestinal obstruction - Assessment / Plan Additional Assessment/Plan Details: At this point Mr. Manriquez looks very well. Will DC his NG tube and Joshi per nurse to protocols. Started on a clear liquid diet
[2017-07-06] MEDS: ONDANSETRON 4 MG/2 ML VIAL IVP PRN (15:17)
[2017-07-06 18:07] LABS: URINE SAMPLE TYPE CLEAN CATCH URINE
[2017-07-07] MEDS: HYDROmorphone 2 MG/1 ML IVP PRN (00:50)
[2017-07-07] MEDS: KETOROLAC 15 MG/1 ML VIAL IVP SCH ×4 (03:53→21:05)
[2017-07-07] MEDS: Pantoprazole Inj 40 MG in Normal Saline Flush 10 ML IVP SCH (08:33)
[2017-07-07] MEDS: D5-LR + 20mEq KCL 1,000 ML PRIMARY IV SCH ×2 (09:40→20:53)
[2017-07-07] MEDS ORDERED: HYDROcodone-APAP 5 MG -325 MG TABLET PO PRN (10:49)
--- NOTE | 2017-07-07 10:51 | PDOC(PROG) ---
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 Little bit nauseated. Still passing flatus no bowel movement Objective : Data - Labs CBC and BMP: 07/06/17 05:50 07/06/17 05:50 - Vital Signs Vital Signs and I&O: Vital Signs - Last Taken Temperature 98.2 F 07/07/17 08:50 Pulse Rate 60 07/07/17 08:50 Respiratory Rate 18 07/07/17 08:50 Blood Pressure 145/63 07/07/17 08:50 Pulse Ox 97 07/07/17 08:50 Intake and Output (24hr x 4 totals) 07/05/17 07/06/17 07/07/17 07/08/17 05:59 05:59 05:59 05:59 Intake Total 1365 / 1365 2738 / 2738 0 / 0 Output Total 350 / 350 1050 / 1050 750 / 750 55 / 55 Balance -350 / 150 315 / 315 1987 / 1987 -55 / -55 Objective : Exam - General General Appearance: No Acute Distress, Cooperative - GI/Abdominal GI/Abdominal Exam: Normal Bowel Sounds, Non Tender, Non Distended Assessment and Plan - Patient Problems (1) Small bowel obstruction Current Visit: Yes Status: Acute Priority: High Onset Date: 07/04/17 Code(s): K56.69 - Other intestinal obstruction
--- NOTE | 2017-07-07 15:49 | DI ---
Exam: FILM KUB INDICATION: Nausea, possible small bowel obstruction versus ileus COMPARISON: Abdominal radiograph exam 07/06/17 FINDINGS: 2 frontal views of the abdomen obtained. Several air-filled mildly prominent loops of small bowel without differential air-fluid levels. Bowel gas and fecal matter throughout the colon and rectum. Overall findings favor ileus pattern showing some partial improvement. No free air under diaphragm. No radiopaque renal calculi identified. Left paramedian midline abdominal cutaneous surgical gaye. L4/L5 posterior pedicle screw and jhon fusion hardware is again noted. Degenerative changes of the lumbar spine. No acute osseous abnormality. Surgical clips in the right upper quadrant of the abdomen.. NG tube has been removed since prior examination. IMPRESSION: Findings favor mild ileus pattern showing some improvement since prior examination. NG tube has been removed since prior examination.
--- NOTE | 2017-07-07 16:23 | PDOC(PROG) ---
Date and Time of Service: 07/07/2017, 1620 Interval History: No chest pain, shortness breath. Patient does complain of nausea. His states that he's been throwing up with even mild foods such as milk shake and crackers. He's had a lot of balance issues, and review of the record reveals that there is concern for normal pressure hydrocephalus. He has not had inpatient evaluation for CSF drainage to see if this improves his ambulation. Objective : Data - Labs CBC and BMP: 07/06/17 05:50 07/06/17 05:50 Objective : Exam - General General Appearance: No Acute Distress, Cooperative Additional General Exam Details: Vital Signs - Last Taken Temperature 98.8 F 07/07/17 15:59 Pulse Rate 81 07/07/17 15:59 Respiratory Rate 20 07/07/17 15:59 Blood Pressure 144/64 07/07/17 15:59 Pulse Ox 94 07/07/17 15:59 - ENT ENT Exam: Mucous Membranes Moist - Respiratory Respiratory Exam: Clear to Auscultation - Bilaterally, Breathing Non Labored - Cardiovascular Cardiovascular Exam: RRR, No Murmur, No Clicks, No Gallops, No Rubs, No JVD - GI/Abdominal GI/Abdominal Exam: Non Tender, Non Distended, Soft, Diminished Bowel Sounds Additional GI/Abdominal Exam Details: Bowel sounds present, but seem a little on the hypoactive side. - Extremities Extremities Exam: No Clubbing Present, No Edema Present, No Cyanosis Present - Neurological Neurological Exam: Alert, Oriented x 3, No Facial Droop, Speech Intact / Clear Additional Neurological Exam Details: Right side does seem a little weaker than left side on examination with intrinsic and extrinsic muscle examination. Assessment and Plan - Patient Problems (1) Ileus following gastrointestinal surgery Current Visit: Yes Status: Acute Code(s): K91.3 - Postprocedural intestinal obstruction (2) Small bowel obstruction Current Visit: Yes Status: Acute Priority: High Onset Date: 07/04/17 Code(s): K56.69 - Other intestinal obstruction (3) Antalgic gait Current Visit: Yes Status: Acute Code(s): R26.89 - Other abnormalities of gait and mobility (4) HTN (hypertension) Current Visit: Yes Status: Acute Code(s): I10 - Essential (primary) hypertension Qualifiers: Hypertension type: essential hypertension Qualified Code(s): I10 - Essential (primary) hypertension - Assessment / Plan Additional Assessment/Plan Details: Think the patient is developed a postoperative ileus, will place on clear liquids for now, I put a call into surgery to discuss further, wonder if NG tube would help. Stop opiates as possible. I encouraged patient to walk as much as possible. He will likely need assistance with this due to his gait abnormalities. I encouraged the patient and his to follow-up with neurosurgery for evaluation of cerebral spinal fluid drainage for improvement in gait. This should be done inpatient with the neurosurgeon. If this works, a shunt could be considered. He likely has normal pressure hydrocephalus. No evidence on a recent MRI of the brain for stroke. Check labs in morning and electrolytes in particular. Continue IV fluids.
--- NOTE | 2017-07-07 18:38 | DI ---
History: Physician Notes: Tech Comments: Exam: XR KUB single image at 18:17 Comparison: 07/07/17 at 15:27 FINDINGS: Tip of the nasogastric tube is seen at the top of the film slightly to the left of midline and does project over the left mainstem bronchus. Cannot determine whether the tube actually lies within the bronchus or is overlapped within the esophagus and therefore recommend withdrawing and re-advancing the tube with repeat of the radiograph following repositioning. IMPRESSION: Tip of the nasogastric tube is seen at the top of the film slightly to the left of midline and does project over the left mainstem bronchus. Cannot determine whether the tube actually lies within the bronchus or is overlapped within the esophagus and therefore recommend withdrawing and re-advancing the tube with repeat of the radiograph following repositioning. [employer] 07/07/17 18:41 Call Nurse DILSHAD Giordano
[2017-07-07] MEDS ORDERED: Sodium Chloride 0.9% 1,000 ML PRIMARY IV ONE (19:23)
[2017-07-07] MEDS ORDERED: Prochlorperazine Edisylate Inj 10 MG in Sodium Chloride 0.9% 500 ML IV ONE (19:24)
[2017-07-07] MEDS ORDERED: Prochlorperazine Edisylate Inj 10mg/2ml vial ONE (19:29)
[2017-07-07] MEDS ORDERED: LIDOCAINE HCL 2 % 10 ML JELLY URO-JECT TOPICAL ONE (19:46)
--- NOTE | 2017-07-07 20:12 | DI ---
History: Physician Notes: Tech Comments: Exam: XR KUB Comparison: FINDINGS/IMPRESSION: Nasogastric tube tip proximal stomach approximately 2.5 cm beyond the expected location of the GE junction.
[2017-07-07] MEDS: MORPHINE SULFATE 2 MG/1 ML IVP PRN (23:10)
[2017-07-07] MEDS ORDERED: LIDOCAINE HCL 5 ML JEL TOPICAL ONE (23:48)
[2017-07-08] MEDS ORDERED: LIDOCAINE HCL 2 % 10 ML JELLY URO-JECT TOPICAL ONE (00:07)
[2017-07-08] MEDS: KETOROLAC 15 MG/1 ML VIAL IVP SCH ×4 (03:30→21:31)
[2017-07-08] MEDS: D5-LR + 20mEq KCL 1,000 ML PRIMARY IV SCH ×2 (04:44→20:23)
[2017-07-08 05:22] LABS: BASOPHILS # (AUTO) 0.03 10*3/UL; BASOPHILS % (AUTO) 0.4 % (0-1); EOSINOPHILS # (AUTO) 0.37 10*3/UL; EOSINOPHILS % (AUTO) 4.8 % (0-8); Hematocrit [HCT] 35.2 % (42.0-52.0); Hemoglobin [HGB] 11.4 g/dL (14.0-18.0); LYMPHOCYTES # (AUTO) 0.93 10*3/uL; MEAN CORPUSCULAR HEMOGLOBIN 30.2 PG (27-31); MEAN CORPUSCULAR HGB CONC 32.4 g/dL (33-37); MEAN CORPUSCULAR VOLUME 93.1 FL (80-90); MONOCYTES # (AUTO) 1.07 10*3/UL (0.3-0.8); MONOCYTES % (AUTO) 13.8 % (5-15); NEUTROPHILS # (AUTO) 5.34 10*3/UL; NEUTROPHILS % (AUTO) 68.9 % (50-80); RED BLOOD COUNT 3.78 10^6/uL (4.70-6.10)
[2017-07-08 05:46] LABS: BLOOD UREA NITROGEN 11 mg/dL (7-22); BUN/CREATININE RATIO 15.71 (6-20); MAGNESIUM 1.8 mg/dL (1.6-2.4); PLATELET MORPHOLOGY COMMENT NORMAL MORPHOLOGY (NORM); RBC MORPHOLOGY COMMENT NORMAL MORPHOLOGY (NORM); WBC MORPHOLOGY COMMENT NORMAL MORPHOLOGY (NORM)
[2017-07-08] MEDS: Pantoprazole Inj 40 MG in Normal Saline Flush 10 ML IVP SCH (09:16)
--- NOTE | 2017-07-08 10:05 | DI ---
AP CHEST X-RAY, 07/07/2017 7:36 PM : Clinical History: Verification of nasogastric tube position. Status post surgery for bowel obstructio n with postoperative ileus. Previous Exam: 07/05/2017. There is no acute soft tissue or bony abnormality. Heart size is normal. Lungs are clear. Mediastinal structures are normal. The tip of the nasogastric tube is at the junction between the mid and distal thirds of the esophagus. Readin. Normal chest x-ray. 2. The tip of the nasogastric tube is in the distal third of the esophagus.
--- NOTE | 2017-07-08 10:20 | DI ---
ABHISHEK, 07/08/2017 7:00 AM: Clinical History: Postoperative ileus. Previous Exam: 07/07/2017. There are no soft tissue or bony abnormalities. There are still some gas-filled loops of small bowel in the left upper quadrant and left flank regions in the small bowel gas pattern is quite similar in distribution to the previous study of 07/07/2017. In addition, there has been very little change in th e appearance of the gas and stool in the colon. The pattern would be consistent with the clinical tayla gnosis of a postoperative ileus. There is no free air or fluid. The nasogastric tube tip is in the fu ndus of the stomach. Readin. Mild postoperative ileus pattern with little change since the previous study of 07/07/2017. 2. The nasogastric tube tip is in the fundus of the stomach.
[2017-07-08] MEDS ORDERED: Magnesium Sulfate 2gm (Premix) 2 GM/50 ML BAG IV ONE (11:33)
--- NOTE | 2017-07-08 12:02 | PDOC(PROG) ---
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 He is little bit confusing tells me yesterday. He stated that yesterday he thought I was some type of [employer]Ob boss. Today he denies any is one of his physicians. He tells me that he is passing gas. He would like to leave the NG tube in a little bit longer. Objective : Data - Labs CBC and BMP: 07/08/17 04:55 07/08/17 04:55 - Vital Signs Vital Signs and I&O: Vital Signs - Last Taken Temperature 98.4 F 07/08/17 06:55 Pulse Rate 72 07/08/17 06:55 Respiratory Rate 24 07/08/17 07:00 Blood Pressure 145/61 07/08/17 06:55 Pulse Ox 95 07/08/17 06:55 Intake and Output (24hr x 4 totals) 07/06/17 07/07/17 07/08/17 07/09/17 05:59 05:59 05:59 05:59 Intake Total 1365 / 1365 2738 / 2738 1000 / 1000 2384 / 2384 Output Total 1050 / 1050 750 / 750 1505 / 1505 1450 / 1450 Balance 315 / 315 1987 / 1987 -505 / -505 934 / 934 Objective : Exam - General General Appearance: No Acute Distress, Cooperative - GI/Abdominal GI/Abdominal Exam: Normal Bowel Sounds, Non Tender, Non Distended, Soft Assessment and Plan - Patient Problems (1) Small bowel obstruction Current Visit: Yes Status: Acute Priority: High Onset Date: 07/04/17 Code(s): K56.69 - Other intestinal obstruction - Assessment / Plan Additional Assessment/Plan Details: As I do think patient is resolving his ileus. Patient likely NG tube in because he does have it replaced. I think this is adequate. If feels that he can be pulled later this afternoon be pulled otherwise will pull the morning. Magnesium is 1.[address] Hopkins wants to add some magnesium.
[2017-07-08] MEDS: NORMAL SALINE 10 ML SYRINGE FLUSH IVP PRN (14:56)
[2017-07-08] MEDS ORDERED: ACETAMINOPHEN 325 MG TABLET PO PRN (18:50)
[2017-07-08] MEDS ORDERED: Acetaminophen 1000mg Inj 1,000 MG/100 ML VIAL IV ONE (18:50)
--- NOTE | 2017-07-08 20:01 | PDOC(PROG) ---
Date and Time of Service: 07/08/2017, 1957 Interval History: Patient had some confusion over the last 24 hours. When I discussed with his , she stated that he's had more confusion at home. She is wondering about possible dementia. He felt that myself and Dr. Lord were part of the [facility]. He states he is much less confused today. No chest pain and no shortness breath. Nausea and vomiting are resolved and abdominal pain is improved. He did not want the NG tube out which I would agree with at this point. I felt his KUB looked better on my examination of the images. Objective : Data - Labs CBC and BMP: 07/08/17 04:55 07/08/17 04:55 Additional Lab Results: Laboratory Results 07/04/17 07/04/17 07/04/17 Range/Units 23:13 23:19 23:19 WBC 7.41 (4.8-10.8) 10^3/uL RBC 4.90 (4.70-6.10) 10^6/uL Hgb 14.8 (14.0-18.0) g/dL Hct 44.3 (42.0-52.0) % MCV 90.4 H (80-90) FL MCH 30.2 (27-31) PG MCHC 33.4 (33-37) g/dL RDW Std Deviation 44.3 (39-50) fL RDW Coeff of Fernando 13.5 (11.5-14.5) % Plt Count 308 (140-350) 10*3/uL MPV 10.3 (7.4-12.2) FL Immature Gran % (Auto) 0.3 (0-5) % Neut % (Auto) 56.9 (50-80) % Lymph % (Auto) 29.1 (10-50) % Sunflower % (Auto) 8.8 (5-15) % Eos % (Auto) 4.2 (0-8) % Baso % (Auto) 0.7 (0-1) % Immature Gran # (Auto) 0.02 10*3/UL Neut # (Auto) 4.22 10*3/UL Lymph # (Auto) 2.16 10*3/uL Sunflower # (Auto) 0.65 (0.3-0.8) 10*3/UL Eos # (Auto) 0.31 10*3/UL Baso # (Auto) 0.05 10*3/UL WBC Morphology Comment Normal morphology (NORM) Plt Morphology Comment Normal morphology (NORM) RBC Morph Comment Normal morphology (NORM) Sodium 138 (135-145) meq/L Potassium 4.4 (3.8-5.2) meq/L Chloride 96 L (98-112) meq/L Carbon Dioxide 29 (23-33) meq/L Anion Gap 13 (5-20) BUN 21 (7-22) mg/dL Creatinine 0.9 (0.70-1.50) mg/dL BUN/Creatinine Ratio 23.33 H (6-20) Glucose 95 (78-110) mg/dL Calculated Osmolality 288.0 (267-292) mOsm/kg Lactic Acid (0.70-2.10) MMOL/L Calcium 10.8 H (8.7-10.7) mg/dL Magnesium (1.6-2.4) mg/dL Total Bilirubin 0.8 (0.3-1.2) mg/dL AST 37 (21-57) IU/L ALT 30 (21-72) IU/L Alkaline Phosphatase 74 (38-126) IU/L Total Protein 8.7 H (6.1-8.0) g/dL Albumin 4.7 (3.5-4.8) g/dL Globulin 4.0 (2.50-4.10) g/dL Albumin/Globulin Ratio 1.10 L (1.3-2.0) mg/g Amylase 82 (30-110) U/L Lipase 93 (23-300) IU/L Ur Collection Type Clean catch urine Urine Color Yellow (Y) Urine Clarity Clear (CLEAR) Urine pH 6.0 (5.0-8.5) Ur Specific Sneads 1.010 (1.005-1.030) Urine Protein Negative (NEG) mg/dl Urine Glucose (UA) Negative (NEG) mg/dL Urine Ketones Negative (NEG) Urine Occult Blood Trace-intact H (NEG) Urine Nitrate Negative (NEG) Urine Bilirubin Negative (NEG) Urine Urobilinogen 0.2 (0.2) EU/dL Ur Leukocyte Esterase Negative (NEG) Urine RBC 1-3 (NONE) /hpf Urine WBC 1-3 (NONE) Ur Squamous Epith Cells Rare (NONE) Ur Renal Epithelial Cell None (NONE) Urine Crystals None Urine Bacteria Rare (NONE) Urine Casts None (NONE) Urine Mucus None (NONE) Urine Trichomonas None (NONE) Urine Yeast None (NONE) Ur Culture Indicated? Culture not set 07/05/17 07/05/17 07/05/17 Range/Units 02:11 09:31 09:31 WBC 13.01 H (4.8-10.8) 10^3/uL RBC 4.96 (4.70-6.10) 10^6/uL Hgb 14.8 (14.0-18.0) g/dL Hct 44.7 (42.0-52.0) % MCV 90.1 H (80-90) FL MCH 29.8 (27-31) PG MCHC 33.1 (33-37) g/dL RDW Std Deviation 43.7 (39-50) fL RDW Coeff of Fernando 13.5 (11.5-14.5) % Plt Count 302 (140-350) 10*3/uL MPV 9.3 (7.4-12.2) FL Immature Gran % (Auto) 0.1 (0-5) % Neut % (Auto) 93.8 H (50-80) % Lymph % (Auto) 3.2 L (10-50) % Sunflower % (Auto) 2.9 L (5-15) % Eos % (Auto) 0 (0-8) % Baso % (Auto) 0 (0-1) % Immature Gran # (Auto) 0.01 10*3/UL Neut # (Auto) 12.20 10*3/UL Lymph # (Auto) 0.42 10*3/uL Sunflower # (Auto) 0.38 (0.3-0.8) 10*3/UL Eos # (Auto) 0 10*3/UL Baso # (Auto) 0 10*3/UL WBC Morphology Comment Normal morphology (NORM) Plt Morphology Comment Normal morphology (NORM) RBC Morph Comment Normal morphology (NORM) Sodium (135-145) meq/L Potassium (3.8-5.2) meq/L Chloride (98-112) meq/L Carbon Dioxide (23-33) meq/L Anion Gap (5-20) BUN (7-22) mg/dL Creatinine (0.70-1.50) mg/dL BUN/Creatinine Ratio (6-20) Glucose (78-110) mg/dL Calculated Osmolality (267-292) mOsm/kg Lactic Acid 1.3 (0.70-2.10) MMOL/L Calcium (8.7-10.7) mg/dL Magnesium (1.6-2.4) mg/dL Total Bilirubin (0.3-1.2) mg/dL AST (21-57) IU/L ALT (21-72) IU/L Alkaline Phosphatase (38-126) IU/L Total Protein (6.1-8.0) g/dL Albumin (3.5-4.8) g/dL Globulin (2.50-4.10) g/dL Albumin/Globulin Ratio (1.3-2.0) mg/g Amylase 70 (30-110) U/L Lipase (23-300) IU/L Ur Collection Type Urine Color (Y) Urine Clarity (CLEAR) Urine pH (5.0-8.5) Ur Specific Sneads (1.005-1.030) Urine Protein (NEG) mg/dl Urine Glucose (UA) (NEG) mg/dL Urine Ketones (NEG) Urine Occult Blood (NEG) Urine Nitrate (NEG) Urine Bilirubin (NEG) Urine Urobilinogen (0.2) EU/dL Ur Leukocyte Esterase (NEG) Urine RBC (NONE) /hpf Urine WBC (NONE) Ur Squamous Epith Cells (NONE) Ur Renal Epithelial Cell (NONE) Urine Crystals Urine Bacteria (NONE) Urine Casts (NONE) Urine Mucus (NONE) Urine Trichomonas (NONE) Urine Yeast (NONE) Ur Culture Indicated? 07/05/17 07/05/17 07/06/17 Range/Units 09:31 09:31 05:50 WBC 10.13 (4.8-10.8) 10^3/uL RBC 4.11 L (4.70-6.10) 10^6/uL Hgb 12.4 L (14.0-18.0) g/dL Hct 37.8 L (42.0-52.0) % MCV 92.0 H (80-90) FL MCH 30.2 (27-31) PG MCHC 32.8 L (33-37) g/dL RDW Std Deviation 45.6 (39-50) fL RDW Coeff of Fernando 13.7 (11.5-14.5) % Plt Count 262 (140-350) 10*3/uL MPV 9.6 (7.4-12.2) FL Immature Gran % (Auto) 0.1 (0-5) % Neut % (Auto) 76.5 (50-80) % Lymph % (Auto) 12.4 (10-50) % Sunflower % (Auto) 9.7 (5-15) % Eos % (Auto) 1.1 (0-8) % Baso % (Auto) 0.2 (0-1) % Immature Gran # (Auto) 0.01 10*3/UL Neut # (Auto) 7.75 10*3/UL Lymph # (Auto) 1.26 10*3/uL Sunflower # (Auto) 0.98 H (0.3-0.8) 10*3/UL Eos # (Auto) 0.11 10*3/UL Baso # (Auto) 0.02 10*3/UL WBC Morphology Comment Normal morphology (NORM) Plt Morphology Comment Normal morphology (NORM) RBC Morph Comment Normal morphology (NORM) Sodium 137 (135-145) meq/L Potassium 4.4 (3.8-5.2) meq/L Chloride 97 L (98-112) meq/L Carbon Dioxide 28 (23-33) meq/L Anion Gap 12 (5-20) BUN 18 (7-22) mg/dL Creatinine 0.8 (0.70-1.50) mg/dL BUN/Creatinine Ratio 22.50 H (6-20) Glucose 123 H (78-110) mg/dL Calculated Osmolality 286.0 (267-292) mOsm/kg Lactic Acid (0.70-2.10) MMOL/L Calcium 10.0 (8.7-10.7) mg/dL Magnesium (1.6-2.4) mg/dL Total Bilirubin 1.0 (0.3-1.2) mg/dL AST 35 (21-57) IU/L ALT 29 (21-72) IU/L Alkaline Phosphatase 76 (38-126) IU/L Total Protein 7.9 (6.1-8.0) g/dL Albumin 4.4 (3.5-4.8) g/dL Globulin 3.5 (2.50-4.10) g/dL Albumin/Globulin Ratio 1.20 L (1.3-2.0) mg/g Amylase (30-110) U/L Lipase 70 (23-300) IU/L Ur Collection Type Urine Color (Y) Urine Clarity (CLEAR) Urine pH (5.0-8.5) Ur Specific Sneads (1.005-1.030) Urine Protein (NEG) mg/dl Urine Glucose (UA) (NEG) mg/dL Urine Ketones (NEG) Urine Occult Blood (NEG) Urine Nitrate (NEG) Urine Bilirubin (NEG) Urine Urobilinogen (0.2) EU/dL Ur Leukocyte Esterase (NEG) Urine RBC (NONE) /hpf Urine WBC (NONE) Ur Squamous Epith Cells (NONE) Ur Renal Epithelial Cell (NONE) Urine Crystals Urine Bacteria (NONE) Urine Casts (NONE) Urine Mucus (NONE) Urine Trichomonas (NONE) Urine Yeast (NONE) Ur Culture Indicated? 07/06/17 07/08/17 07/08/17 Range/Units 05:50 04:55 04:55 WBC 7.75 (4.8-10.8) 10^3/uL RBC 3.78 L (4.70-6.10) 10^6/uL Hgb 11.4 L (14.0-18.0) g/dL Hct 35.2 L (42.0-52.0) % MCV 93.1 H (80-90) FL MCH 30.2 (27-31) PG MCHC 32.4 L (33-37) g/dL RDW Std Deviation 44.1 (39-50) fL RDW Coeff of Fernando 13.3 (11.5-14.5) % Plt Count 243 (140-350) 10*3/uL MPV 10.0 (7.4-12.2) FL Immature Gran % (Auto) 0.1 (0-5) % Neut % (Auto) 68.9 (50-80) % Lymph % (Auto) 12.0 (10-50) % Sunflower % (Auto) 13.8 (5-15) % Eos % (Auto) 4.8 (0-8) % Baso % (Auto) 0.4 (0-1) % Immature Gran # (Auto) 0.01 10*3/UL Neut # (Auto) 5.34 10*3/UL Lymph # (Auto) 0.93 10*3/uL Sunflower # (Auto) 1.07 H (0.3-0.8) 10*3/UL Eos # (Auto) 0.37 10*3/UL Baso # (Auto) 0.03 10*3/UL WBC Morphology Comment Normal morphology (NORM) Plt Morphology Comment Normal morphology (NORM) RBC Morph Comment Normal morphology (NORM) Sodium 137 138 (135-145) meq/L Potassium 4.3 4.1 (3.8-5.2) meq/L Chloride 102 103 (98-112) meq/L Carbon Dioxide 27 29 (23-33) meq/L Anion Gap 8 6 (5-20) BUN 17 11 (7-22) mg/dL Creatinine 0.8 0.7 (0.70-1.50) mg/dL BUN/Creatinine Ratio 21.25 H 15.71 (6-20) Glucose 108 98 (78-110) mg/dL Calculated Osmolality 286.0 284.0 (267-292) mOsm/kg Lactic Acid (0.70-2.10) MMOL/L Calcium 9.0 8.9 (8.7-10.7) mg/dL Magnesium 1.8 (1.6-2.4) mg/dL Total Bilirubin 1.0 0.7 (0.3-1.2) mg/dL AST 24 27 (21-57) IU/L ALT 29 26 (21-72) IU/L Alkaline Phosphatase 51 47 (38-126) IU/L Total Protein 5.6 L 5.7 L (6.1-8.0) g/dL Albumin 3.0 L 3.0 L (3.5-4.8) g/dL Globulin 2.6 2.7 (2.50-4.10) g/dL Albumin/Globulin Ratio 1.10 L 1.10 L (1.3-2.0) mg/g Amylase < 30 L (30-110) U/L Lipase 44 (23-300) IU/L Ur Collection Type Urine Color (Y) Urine Clarity (CLEAR) Urine pH (5.0-8.5) Ur Specific Sneads (1.005-1.030) Urine Protein (NEG) mg/dl Urine Glucose (UA) (NEG) mg/dL Urine Ketones (NEG) Urine Occult Blood (NEG) Urine Nitrate (NEG) Urine Bilirubin (NEG) Urine Urobilinogen (0.2) EU/dL Ur Leukocyte Esterase (NEG) Urine RBC (NONE) /hpf Urine WBC (NONE) Ur Squamous Epith Cells (NONE) Ur Renal Epithelial Cell (NONE) Urine Crystals Urine Bacteria (NONE) Urine Casts (NONE) Urine Mucus (NONE) Urine Trichomonas (NONE) Urine Yeast (NONE) Ur Culture Indicated? Objective : Exam - General General Appearance: No Acute Distress, Cooperative Additional General Exam Details: Vital Signs (24 hrs) Temp Pulse Resp BP Pulse Ox 07/08/17 18:52 98.9 F 71 24 156/73 96 07/08/17 18:48 77 22 07/08/17 16:57 98.9 F 77 22 138/65 92 07/08/17 12:09 98.3 F 87 22 136/54 93 07/08/17 07:00 24 07/08/17 06:55 98.4 F 72 24 145/61 95 07/08/17 05:24 95 07/08/17 04:55 97.4 F 76 20 164/78 95 07/08/17 00:26 98.4 F 76 18 139/73 93 07/07/17 20:52 98.7 F 86 20 162/75 92 - Eye Eye Exam: No Scleral Icterus - ENT ENT Exam: Mucous Membranes Moist - Respiratory Respiratory Exam: Clear to Auscultation - Bilaterally, Breathing Non Labored - Cardiovascular Cardiovascular Exam: RRR, No Murmur, No Clicks, No Gallops, No Rubs, No JVD - GI/Abdominal GI/Abdominal Exam: Normal Bowel Sounds (Improved bowel sounds today.), Non Tender, Non Distended, Soft - Exam: Joshi Catheter in Place (Urine appears clear) - Extremities Extremities Exam: No Clubbing Present, No Edema Present, No Cyanosis Present - Neurological Neurological Exam: Alert, No Facial Droop, Speech Intact / Clear, Moves All Extremities Equally, Abnormal Gait (Walks with walker, but slow and antalgic) Assessment and Plan - Patient Problems (1) Ileus following gastrointestinal surgery Current Visit: Yes Status: Acute Code(s): K91.3 - Postprocedural intestinal obstruction (2) Small bowel obstruction Current Visit: Yes Status: Acute Priority: High Onset Date: 07/04/17 Code(s): K56.69 - Other intestinal obstruction (3) Antalgic gait Current Visit: Yes Status: Acute Code(s): R26.89 - Other abnormalities of gait and mobility (4) HTN (hypertension) Current Visit: Yes Status: Acute Code(s): I10 - Essential (primary) hypertension Qualifiers: Hypertension type: essential hypertension Qualified Code(s): I10 - Essential (primary) hypertension (5) Delirium Current Visit: Yes Status: Acute Code(s): R41.0 - Disorientation, unspecified - Assessment / Plan Additional Assessment/Plan Details: Delirium is likely multifactorial, and probably related to postoperative ileus, what appears to be possible normal pressure hydrocephalus with gait abnormality and confusion at home reported, and it is likely that the patient will need some prolonged therapy after this hospital stay. His ambulatory status will make it difficult to improve from an ileus and bowel obstruction. Replace magnesium today. Check labs in a.m. including comp into metabolic panel and magnesium. PT and OT. I think a swing bed makes sense for this patient. Ultimately, I discussed with the , that the patient may need further assistance outside the home and may even need assisted living or further care. I encouraged her to discuss with the patient's children who apparently lives in [place].
[2017-07-09] MEDS: D5-LR + 20mEq KCL 1,000 ML PRIMARY IV SCH ×3 (03:32→16:14)
[2017-07-09] MEDS: KETOROLAC 15 MG/1 ML VIAL IVP SCH ×3 (03:32→15:25)
[2017-07-09 05:30] LABS: BLOOD UREA NITROGEN 8 mg/dL (7-22); BUN/CREATININE RATIO 11.42 (6-20); MAGNESIUM 2.2 mg/dL (1.6-2.4); SERUM ALBUMIN 3.1 g/dL (3.5-4.8)
--- NOTE | 2017-07-09 08:16 | DI ---
ABHISHEK, 07/09/2017 7:00 AM: Clinical History: Postoperative ileus. Previous Exam: 07/08/2017. The nasogastric tube has been removed. Gas is present in the stomach as well as in loops of small bow el in the left upper quadrant. The loops are not dilated but the pattern is consistent with a mild il eus. Since the previous exam, there is less stool in the ascending and transverse colon, as well as i n the rectum indicating the patient has had a bowel movement. Reading: A very mild ileus pattern is still present. There is evidence the patient has had a bowel movement si nce the previous exam.
[2017-07-09] MEDS: Pantoprazole Inj 40 MG in Normal Saline Flush 10 ML IVP SCH (11:22)
--- NOTE | 2017-07-09 12:28 | PDOC(PROG) ---
Subjective Post Op Day: postop day 4 Joshi Catheter: No Flatus: Yes Diet: Regular Date and Time of Service: 07/09/2017 at 12:30 Interval History: Patient states he feels better had a bowel movement tolerated breakfast Objective : Data - Labs CBC and BMP: 07/08/17 04:55 07/09/17 04:00 - Vital Signs Vital Signs and I&O: Vital Signs - Last Taken Temperature 98.7 F 07/09/17 11:09 Pulse Rate 69 07/09/17 11:09 Respiratory Rate 17 07/09/17 11:09 Blood Pressure 159/69 07/09/17 11:09 Pulse Ox 98 07/09/17 11:09 Intake and Output (24hr x 4 totals) 07/07/17 07/08/17 07/09/17 07/10/17 05:59 05:59 05:59 05:59 Intake Total 2738 / 2738 1000 / 1000 3242 / 3242 Output Total 750 / 750 1505 / 1505 2200 / 2200 100 / 100 Balance 1987 / 1987 -505 / -505 1042 / 1042 -100 / -100 Objective : Exam - General General Appearance: No Acute Distress, Cooperative - Head Head Exam: Normal Inspection, Normocephalic, Atraumatic - Eye Eye Exam: Normal Appearance, PERRL, EOMI, No Scleral Icterus - ENT ENT Exam: Normal Exam, Normal External Ear Exam, Normal Oropharynx, TM's Normal Bilaterally, Mucous Membranes Moist - Neck Neck Exam: Normal Inspection, Full ROM, No Tenderness - Respiratory Respiratory Exam: Clear to Auscultation - Bilaterally, Breathing Non Labored, Normal To Percussion, Normal to Percussion and Palpation - Cardiovascular Cardiovascular Exam: RRR, No Murmur, No Clicks, No Gallops, No Rubs, PMI Non- Displaced - GI/Abdominal GI/Abdominal Exam: Normal Bowel Sounds, Non Tender, Non Distended, Soft, No Masses, No Hepatomegaly, No Splenomegaly, No Organomegaly - Rectal Rectal Exam: Deferred - External Exam: Deferred Exam: Deferred - Back Back Exam: Normal Inspection, Full ROM, No CVA Tenderness - Neurological Neurological Exam: Alert, Oriented x 3, Reflexes Normal, Normal Gait, CN II-XII Intact, No Facial Droop, Moves All Extremities Equally - Psychiatric Psychiatric Exam: Normal Affect, Normal Mood - Integumentary Integumentary Exam: Normal Color, Warm, Dry, Intact Assessment and Plan - Patient Problems (1) Small bowel obstruction Current Visit: Yes Status: Acute Priority: High Onset Date: 07/04/17 Code(s): K56.69 - Other intestinal obstruction - Assessment / Plan Additional Assessment/Plan Details: Overall the patient is doing very well. His ileus has resolved. He is tolerating diet. I agree with the hospitalist that he can be made swing bed.
[2017-07-09] MEDS ORDERED: Ondansetron ODT Tab 8 MG TAB PO PRN (13:29)
[2017-07-09] MEDS ORDERED: Ondansetron ODT Tab 8 MG TAB PO ONE (13:29)
--- NOTE | 2017-07-09 16:48 | DI ---
CHEST X-RAY WITH ABDOMINAL SERIES, 07/09/2017 2:49 PM : Clinical History: Abdominal distention. Nausea. Vomiting. AP CHEST X-RAY: Previous Exam: 07/07/2017. There is no acute soft tissue or bony abnormality. There is no free air under the diaphragms. Heart s ize is normal. Lungs are clear. Mediastinal structures are normal. There are no pulmonary nodules. Reading: Normal AP chest x-ray. ABDOMINAL SERIES: Previous Exam: 07/08/2017. KUB and upright abdomen films are submitted. There are gas-filled loops of small bowel primarily in t he epigastric and left flank regions. There is no distention of the small bowel but there is an occas ional air-fluid level. There are loops of small bowel in the left flank region that may extend beyond the abdominal wall suggesting there is a hernia. However, this patient did have a CT scan of the abd omen and pelvis on 07/04/2017 that does not demonstrate a hernia. The large bowel pattern is unremarka ble. There is a moderate to moderately prominent amount of fluid in the fundus of the stomach. There is no free air or fluid. There are no abnormal radiodensities. Reading: There are gas-filled loops of small bowel without distention located primarily in the epigastric and left flank region. This would be consistent with a mild postoperative ileus. There is fluid present i n the fundus of the stomach.
[2017-07-09] MEDS: MORPHINE SULFATE 2 MG/1 ML IVP PRN (17:51)
[2017-07-09] MEDS ORDERED: Lidocaine 1% 10 MG/ML - 20 ML VIAL SUBCUT PRN (17:56)
[2017-07-09] MEDS ORDERED: LIDOCAINE 2% 20 MG/ML - 20 ML VIAL SUBCUT PRN (17:56)
[2017-07-09] MEDS ORDERED: HEPARIN 500 UNIT/5 ML SYRINGE FOR CENTRAL LINE IVP PRN (17:56)
[2017-07-09] MEDS ORDERED: LIDOCAINE HCL 2 % 10 ML JELLY URO-JECT TOPICAL ONE (18:25)
--- NOTE | 2017-07-09 19:12 | DI ---
ABHISHEK, 07/09/2017 6:44 PM: Clinical History: Postoperative ileus. Verification of nasogastric tube position. Previous Exam: 07/09/2017, at 1535 hours. There is gas in the stomach and the nasogastric tube initially is in the body of the stomach and on t he second film, it has been withdrawn so that it is in the fundus of the stomach. There are still the small bowel filled with gas in the left groin to the left upper quadrant there is no abnormal dilata tion present. Gas is present in the small bowel in the right flank region. Reading: The nasogastric tube tip is in the fundus of the stomach.
[2017-07-09] MEDS: Metoclopramide Inj 10 MG/2 ML VIAL IVP SCH (20:15)
[2017-07-09] MEDS ORDERED: HALOPERIDOL LACTATE 5 MG/1 ML AMPULE IVP PRN (20:51)
[2017-07-09] MEDS ORDERED: KETOROLAC 15 MG/1 ML VIAL IVP PRN (20:52)
[2017-07-09] MEDS: D5-1/2NS + 20mEq KCL 1,000 ML PRIMARY IV SCH (21:18)
--- NOTE | 2017-07-09 21:37 | PDOC(PROG) ---
Date and Time of Service: 07/09/2017, 2134 Interval History: Patient seen multiple times throughout the day. Initially, he had no complaints of abdominal pain, and he inadvertently took out his NG tube overnight. Tolerated clear liquids, and then with diet advancement, developed worsening signs of ileus, nausea, vomiting, abdominal distension. We again replaced NG tube, got over 1000 mL out, and patient had second large BM in past 24 hours. No chest pain and no shortness of breath. I discussed with surgery. Acute abdominal series shows persistent ileus and lots of fluid in stomach. Surgery suggested resuming therapy for ileus and also we agreed that we should manage with TPN and try to maintain NG tube as much as possible. 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 VERY difficult post operative case. Objective : Data - Labs CBC and BMP: 07/08/17 04:55 07/09/17 04:00 Additional Lab Results: Laboratory Results 07/04/17 07/04/17 07/04/17 Range/Units 23:13 23:19 23:19 WBC 7.41 (4.8-10.8) 10^3/uL RBC 4.90 (4.70-6.10) 10^6/uL Hgb 14.8 (14.0-18.0) g/dL Hct 44.3 (42.0-52.0) % MCV 90.4 H (80-90) FL MCH 30.2 (27-31) PG MCHC 33.4 (33-37) g/dL RDW Std Deviation 44.3 (39-50) fL RDW Coeff of Fernando 13.5 (11.5-14.5) % Plt Count 308 (140-350) 10*3/uL MPV 10.3 (7.4-12.2) FL Immature Gran % (Auto) 0.3 (0-5) % Neut % (Auto) 56.9 (50-80) % Lymph % (Auto) 29.1 (10-50) % Carbon % (Auto) 8.8 (5-15) % Eos % (Auto) 4.2 (0-8) % Baso % (Auto) 0.7 (0-1) % Immature Gran # (Auto) 0.02 10*3/UL Neut # (Auto) 4.22 10*3/UL Lymph # (Auto) 2.16 10*3/uL Carbon # (Auto) 0.65 (0.3-0.8) 10*3/UL Eos # (Auto) 0.31 10*3/UL Baso # (Auto) 0.05 10*3/UL WBC Morphology Comment Normal morphology (NORM) Plt Morphology Comment Normal morphology (NORM) RBC Morph Comment Normal morphology (NORM) Sodium 138 (135-145) meq/L Potassium 4.4 (3.8-5.2) meq/L Chloride 96 L (98-112) meq/L Carbon Dioxide 29 (23-33) meq/L Anion Gap 13 (5-20) BUN 21 (7-22) mg/dL Creatinine 0.9 (0.70-1.50) mg/dL BUN/Creatinine Ratio 23.33 H (6-20) Glucose 95 (78-110) mg/dL Calculated Osmolality 288.0 (267-292) mOsm/kg Lactic Acid (0.70-2.10) MMOL/L Calcium 10.8 H (8.7-10.7) mg/dL Magnesium (1.6-2.4) mg/dL Total Bilirubin 0.8 (0.3-1.2) mg/dL AST 37 (21-57) IU/L ALT 30 (21-72) IU/L Alkaline Phosphatase 74 (38-126) IU/L Total Protein 8.7 H (6.1-8.0) g/dL Albumin 4.7 (3.5-4.8) g/dL Globulin 4.0 (2.50-4.10) g/dL Albumin/Globulin Ratio 1.10 L (1.3-2.0) mg/g Amylase 82 (30-110) U/L Lipase 93 (23-300) IU/L Ur Collection Type Clean catch urine Urine Color Yellow (Y) Urine Clarity Clear (CLEAR) Urine pH 6.0 (5.0-8.5) Ur Specific [place] 1.010 (1.005-1.030) Urine Protein Negative (NEG) mg/dl Urine Glucose (UA) Negative (NEG) mg/dL Urine Ketones Negative (NEG) Urine Occult Blood Trace-intact H (NEG) Urine Nitrate Negative (NEG) Urine Bilirubin Negative (NEG) Urine Urobilinogen 0.2 (0.2) EU/dL Ur Leukocyte Esterase Negative (NEG) Urine RBC 1-3 (NONE) /hpf Urine WBC 1-3 (NONE) Ur Squamous Epith Cells Rare (NONE) Ur Renal Epithelial Cell None (NONE) Urine Crystals None Urine Bacteria Rare (NONE) Urine Casts None (NONE) Urine Mucus None (NONE) Urine Trichomonas None (NONE) Urine Yeast None (NONE) Ur Culture Indicated? Culture not set 07/05/17 07/05/17 07/05/17 Range/Units 02:11 09:31 09:31 WBC 13.01 H (4.8-10.8) 10^3/uL RBC 4.96 (4.70-6.10) 10^6/uL Hgb 14.8 (14.0-18.0) g/dL Hct 44.7 (42.0-52.0) % MCV 90.1 H (80-90) FL MCH 29.8 (27-31) PG MCHC 33.1 (33-37) g/dL RDW Std Deviation 43.7 (39-50) fL RDW Coeff of Fernando 13.5 (11.5-14.5) % Plt Count 302 (140-350) 10*3/uL MPV 9.3 (7.4-12.2) FL Immature Gran % (Auto) 0.1 (0-5) % Neut % (Auto) 93.8 H (50-80) % Lymph % (Auto) 3.2 L (10-50) % Carbon % (Auto) 2.9 L (5-15) % Eos % (Auto) 0 (0-8) % Baso % (Auto) 0 (0-1) % Immature Gran # (Auto) 0.01 10*3/UL Neut # (Auto) 12.20 10*3/UL Lymph # (Auto) 0.42 10*3/uL Carbon # (Auto) 0.38 (0.3-0.8) 10*3/UL Eos # (Auto) 0 10*3/UL Baso # (Auto) 0 10*3/UL WBC Morphology Comment Normal morphology (NORM) Plt Morphology Comment Normal morphology (NORM) RBC Morph Comment Normal morphology (NORM) Sodium (135-145) meq/L Potassium (3.8-5.2) meq/L Chloride (98-112) meq/L Carbon Dioxide (23-33) meq/L Anion Gap (5-20) BUN (7-22) mg/dL Creatinine (0.70-1.50) mg/dL BUN/Creatinine Ratio (6-20) Glucose (78-110) mg/dL Calculated Osmolality (267-292) mOsm/kg Lactic Acid 1.3 (0.70-2.10) MMOL/L Calcium (8.7-10.7) mg/dL Magnesium (1.6-2.4) mg/dL Total Bilirubin (0.3-1.2) mg/dL AST (21-57) IU/L ALT (21-72) IU/L Alkaline Phosphatase (38-126) IU/L Total Protein (6.1-8.0) g/dL Albumin (3.5-4.8) g/dL Globulin (2.50-4.10) g/dL Albumin/Globulin Ratio (1.3-2.0) mg/g Amylase 70 (30-110) U/L Lipase (23-300) IU/L Ur Collection Type Urine Color (Y) Urine Clarity (CLEAR) Urine pH (5.0-8.5) Ur Specific [place] (1.005-1.030) Urine Protein (NEG) mg/dl Urine Glucose (UA) (NEG) mg/dL Urine Ketones (NEG) Urine Occult Blood (NEG) Urine Nitrate (NEG) Urine Bilirubin (NEG) Urine Urobilinogen (0.2) EU/dL Ur Leukocyte Esterase (NEG) Urine RBC (NONE) /hpf Urine WBC (NONE) Ur Squamous Epith Cells (NONE) Ur Renal Epithelial Cell (NONE) Urine Crystals Urine Bacteria (NONE) Urine Casts (NONE) Urine Mucus (NONE) Urine Trichomonas (NONE) Urine Yeast (NONE) Ur Culture Indicated? 07/05/17 07/05/17 07/06/17 Range/Units 09:31 09:31 05:50 WBC 10.13 (4.8-10.8) 10^3/uL RBC 4.11 L (4.70-6.10) 10^6/uL Hgb 12.4 L (14.0-18.0) g/dL Hct 37.8 L (42.0-52.0) % MCV 92.0 H (80-90) FL MCH 30.2 (27-31) PG MCHC 32.8 L (33-37) g/dL RDW Std Deviation 45.6 (39-50) fL RDW Coeff of Fernando 13.7 (11.5-14.5) % Plt Count 262 (140-350) 10*3/uL MPV 9.6 (7.4-12.2) FL Immature Gran % (Auto) 0.1 (0-5) % Neut % (Auto) 76.5 (50-80) % Lymph % (Auto) 12.4 (10-50) % Carbon % (Auto) 9.7 (5-15) % Eos % (Auto) 1.1 (0-8) % Baso % (Auto) 0.2 (0-1) % Immature Gran # (Auto) 0.01 10*3/UL Neut # (Auto) 7.75 10*3/UL Lymph # (Auto) 1.26 10*3/uL Carbon # (Auto) 0.98 H (0.3-0.8) 10*3/UL Eos # (Auto) 0.11 10*3/UL Baso # (Auto) 0.02 10*3/UL WBC Morphology Comment Normal morphology (NORM) Plt Morphology Comment Normal morphology (NORM) RBC Morph Comment Normal morphology (NORM) Sodium 137 (135-145) meq/L Potassium 4.4 (3.8-5.2) meq/L Chloride 97 L (98-112) meq/L Carbon Dioxide 28 (23-33) meq/L Anion Gap 12 (5-20) BUN 18 (7-22) mg/dL Creatinine 0.8 (0.70-1.50) mg/dL BUN/Creatinine Ratio 22.50 H (6-20) Glucose 123 H (78-110) mg/dL Calculated Osmolality 286.0 (267-292) mOsm/kg Lactic Acid (0.70-2.10) MMOL/L Calcium 10.0 (8.7-10.7) mg/dL Magnesium (1.6-2.4) mg/dL Total Bilirubin 1.0 (0.3-1.2) mg/dL AST 35 (21-57) IU/L ALT 29 (21-72) IU/L Alkaline Phosphatase 76 (38-126) IU/L Total Protein 7.9 (6.1-8.0) g/dL Albumin 4.4 (3.5-4.8) g/dL Globulin 3.5 (2.50-4.10) g/dL Albumin/Globulin Ratio 1.20 L (1.3-2.0) mg/g Amylase (30-110) U/L Lipase 70 (23-300) IU/L Ur Collection Type Urine Color (Y) Urine Clarity (CLEAR) Urine pH (5.0-8.5) Ur Specific [place] (1.005-1.030) Urine Protein (NEG) mg/dl Urine Glucose (UA) (NEG) mg/dL Urine Ketones (NEG) Urine Occult Blood (NEG) Urine Nitrate (NEG) Urine Bilirubin (NEG) Urine Urobilinogen (0.2) EU/dL Ur Leukocyte Esterase (NEG) Urine RBC (NONE) /hpf Urine WBC (NONE) Ur Squamous Epith Cells (NONE) Ur Renal Epithelial Cell (NONE) Urine Crystals Urine Bacteria (NONE) Urine Casts (NONE) Urine Mucus (NONE) Urine Trichomonas (NONE) Urine Yeast (NONE) Ur Culture Indicated? 07/06/17 07/08/17 07/08/17 Range/Units 05:50 04:55 04:55 WBC 7.75 (4.8-10.8) 10^3/uL RBC 3.78 L (4.70-6.10) 10^6/uL Hgb 11.4 L (14.0-18.0) g/dL Hct 35.2 L (42.0-52.0) % MCV 93.1 H (80-90) FL MCH 30.2 (27-31) PG MCHC 32.4 L (33-37) g/dL RDW Std Deviation 44.1 (39-50) fL RDW Coeff of Fernando 13.3 (11.5-14.5) % Plt Count 243 (140-350) 10*3/uL MPV 10.0 (7.4-12.2) FL Immature Gran % (Auto) 0.1 (0-5) % Neut % (Auto) 68.9 (50-80) % Lymph % (Auto) 12.0 (10-50) % Carbon % (Auto) 13.8 (5-15) % Eos % (Auto) 4.8 (0-8) % Baso % (Auto) 0.4 (0-1) % Immature Gran # (Auto) 0.01 10*3/UL Neut # (Auto) 5.34 10*3/UL Lymph # (Auto) 0.93 10*3/uL Carbon # (Auto) 1.07 H (0.3-0.8) 10*3/UL Eos # (Auto) 0.37 10*3/UL Baso # (Auto) 0.03 10*3/UL WBC Morphology Comment Normal morphology (NORM) Plt Morphology Comment Normal morphology (NORM) RBC Morph Comment Normal morphology (NORM) Sodium 137 138 (135-145) meq/L Potassium 4.3 4.1 (3.8-5.2) meq/L Chloride 102 103 (98-112) meq/L Carbon Dioxide 27 29 (23-33) meq/L Anion Gap 8 6 (5-20) BUN 17 11 (7-22) mg/dL Creatinine 0.8 0.7 (0.70-1.50) mg/dL BUN/Creatinine Ratio 21.25 H 15.71 (6-20) Glucose 108 98 (78-110) mg/dL Calculated Osmolality 286.0 284.0 (267-292) mOsm/kg Lactic Acid (0.70-2.10) MMOL/L Calcium 9.0 8.9 (8.7-10.7) mg/dL Magnesium 1.8 (1.6-2.4) mg/dL Total Bilirubin 1.0 0.7 (0.3-1.2) mg/dL AST 24 27 (21-57) IU/L ALT 29 26 (21-72) IU/L Alkaline Phosphatase 51 47 (38-126) IU/L Total Protein 5.6 L 5.7 L (6.1-8.0) g/dL Albumin 3.0 L 3.0 L (3.5-4.8) g/dL Globulin 2.6 2.7 (2.50-4.10) g/dL Albumin/Globulin Ratio 1.10 L 1.10 L (1.3-2.0) mg/g Amylase < 30 L (30-110) U/L Lipase 44 (23-300) IU/L Ur Collection Type Urine Color (Y) Urine Clarity (CLEAR) Urine pH (5.0-8.5) Ur Specific [place] (1.005-1.030) Urine Protein (NEG) mg/dl Urine Glucose (UA) (NEG) mg/dL Urine Ketones (NEG) Urine Occult Blood (NEG) Urine Nitrate (NEG) Urine Bilirubin (NEG) Urine Urobilinogen (0.2) EU/dL Ur Leukocyte Esterase (NEG) Urine RBC (NONE) /hpf Urine WBC (NONE) Ur Squamous Epith Cells (NONE) Ur Renal Epithelial Cell (NONE) Urine Crystals Urine Bacteria (NONE) Urine Casts (NONE) Urine Mucus (NONE) Urine Trichomonas (NONE) Urine Yeast (NONE) Ur Culture Indicated? 07/09/17 Range/Units 04:00 WBC (4.8-10.8) 10^3/uL RBC (4.70-6.10) 10^6/uL Hgb (14.0-18.0) g/dL Hct (42.0-52.0) % MCV (80-90) FL MCH (27-31) PG MCHC (33-37) g/dL RDW Std Deviation (39-50) fL RDW Coeff of Fernando (11.5-14.5) % Plt Count (140-350) 10*3/uL MPV (7.4-12.2) FL Immature Gran % (Auto) (0-5) % Neut % (Auto) (50-80) % Lymph % (Auto) (10-50) % Carbon % (Auto) (5-15) % Eos % (Auto) (0-8) % Baso % (Auto) (0-1) % Immature Gran # (Auto) 10*3/UL Neut # (Auto) 10*3/UL Lymph # (Auto) 10*3/uL Carbon # (Auto) (0.3-0.8) 10*3/UL Eos # (Auto) 10*3/UL Baso # (Auto) 10*3/UL WBC Morphology Comment (NORM) Plt Morphology Comment (NORM) RBC Morph Comment (NORM) Sodium 139 (135-145) meq/L Potassium 4.1 (3.8-5.2) meq/L Chloride 103 (98-112) meq/L Carbon Dioxide 29 (23-33) meq/L Anion Gap 7 (5-20) BUN 8 (7-22) mg/dL Creatinine 0.7 (0.70-1.50) mg/dL BUN/Creatinine Ratio 11.42 (6-20) Glucose 96 (78-110) mg/dL Calculated Osmolality 285.0 (267-292) mOsm/kg Lactic Acid (0.70-2.10) MMOL/L Calcium 8.9 (8.7-10.7) mg/dL Magnesium 2.2 (1.6-2.4) mg/dL Total Bilirubin 0.7 (0.3-1.2) mg/dL AST 29 (21-57) IU/L ALT 30 (21-72) IU/L Alkaline Phosphatase 53 (38-126) IU/L Total Protein 5.8 L (6.1-8.0) g/dL Albumin 3.1 L (3.5-4.8) g/dL Globulin 2.7 (2.50-4.10) g/dL Albumin/Globulin Ratio 1.10 L (1.3-2.0) mg/g Amylase (30-110) U/L Lipase (23-300) IU/L Ur Collection Type Urine Color (Y) Urine Clarity (CLEAR) Urine pH (5.0-8.5) Ur Specific [place] (1.005-1.030) Urine Protein (NEG) mg/dl Urine Glucose (UA) (NEG) mg/dL Urine Ketones (NEG) Urine Occult Blood (NEG) Urine Nitrate (NEG) Urine Bilirubin (NEG) Urine Urobilinogen (0.2) EU/dL Ur Leukocyte Esterase (NEG) Urine RBC (NONE) /hpf Urine WBC (NONE) Ur Squamous Epith Cells (NONE) Ur Renal Epithelial Cell (NONE) Urine Crystals Urine Bacteria (NONE) Urine Casts (NONE) Urine Mucus (NONE) Urine Trichomonas (NONE) Urine Yeast (NONE) Ur Culture Indicated? - Imaging X-Ray Status: Image Reviewed by Me (on my reveiw of KUB and acute abdominal series, patient still has ileus, but loops of small bowel do look better. final KUB shows NG tube on my view to be in correct position) Objective : Exam - General General Appearance: No Acute Distress, Cooperative Additional General Exam Details: Vital Signs (24 hrs) Temp Pulse Resp BP Pulse Ox 07/09/17 21:00 98.3 F 85 21 150/77 97 07/09/17 19:00 87 17 07/09/17 16:41 98 F 87 17 150/72 92 07/09/17 11:09 98.7 F 69 17 159/69 98 07/09/17 07:35 98.9 F 70 17 155/66 96 07/09/17 07:00 13 07/09/17 04:59 98.0 F 91 20 147/79 98 07/09/17 04:21 94 - Eye Eye Exam: No Scleral Icterus - ENT ENT Exam: Mucous Membranes Moist - Respiratory Respiratory Exam: Clear to Auscultation - Bilaterally, Breathing Non Labored - Cardiovascular Cardiovascular Exam: RRR, No Murmur, No Clicks, No Gallops, No Rubs, No JVD - GI/Abdominal Additional GI/Abdominal Exam Details: on first exam, soft, good bowel tones on second and third exam, distended, hypoactive tones, + tympany on percussion; but after replacement of the NG tube tonight, 1000 mL out bilious looking gastric fluids. abdomen softened up after placement of NG tube. - Extremities Extremities Exam: No Clubbing Present, No Edema Present, No Cyanosis Present - Neurological Neurological Exam: Alert, No Facial Droop, Speech Intact / Clear, Moves All Extremities Equally Additional Neurological Exam Details: knows he is having confusion. Assessment and Plan - Patient Problems (1) Ileus following gastrointestinal surgery Current Visit: Yes Status: Acute Code(s): K91.3 - Postprocedural intestinal obstruction (2) Small bowel obstruction Current Visit: Yes Status: Acute Priority: High Onset Date: 07/04/17 Code(s): K56.69 - Other intestinal obstruction (3) Antalgic gait Current Visit: Yes Status: Acute Code(s): R26.89 - Other abnormalities of gait and mobility (4) HTN (hypertension) Current Visit: Yes Status: Acute Code(s): I10 - Essential (primary) hypertension Qualifiers: Hypertension type: essential hypertension Qualified Code(s): I10 - Essential (primary) hypertension (5) Delirium Current Visit: Yes Status: Acute Code(s): R41.0 - Disorientation, unspecified - Assessment / Plan Additional Assessment/Plan Details: resume NG tube, maintain for a while longer IV fluids and electrolyte monitoring and replacement TPN--dietary consult placed PT and OT swing bed when acute issues resolve- prognosis is difficult to determine, but with known and reported confusion (by his ) at home, probable dementia, NPH, gait problems, the patient is very high risk for poor recovery, skin break down, pneumonia, blood clot.
[2017-07-09] MEDS: HEPARIN 5000 UNIT/1 ML SUBCUT SCH (22:49)
[2017-07-10] MEDS: Metoclopramide Inj 10 MG/2 ML VIAL IVP SCH ×4 (01:52→20:20)
[2017-07-10] MEDS: HEPARIN 5000 UNIT/1 ML SUBCUT SCH ×3 (05:06→21:21)
[2017-07-10 05:25] LABS: Hematocrit [HCT] 40.1 % (42.0-52.0); Hemoglobin [HGB] 12.8 g/dL (14.0-18.0); MEAN CORPUSCULAR HEMOGLOBIN 29.5 PG (27-31); MEAN CORPUSCULAR HGB CONC 31.9 g/dL (33-37); MEAN CORPUSCULAR VOLUME 92.4 FL (80-90); MEAN PLATELET VOLUME 10.4 FL (7.4-12.2); RED BLOOD COUNT 4.34 10^6/uL (4.70-6.10)
[2017-07-10 06:31] LABS: BAND NEUTROPHILS % 4 % (0-10); EOSINOPHILS % (MANUAL) 4 % (0-8); MONOCYTES % (MANUAL) 6 % (0-12); NEUTROPHILS % (MANUAL) 70 % (50-80); PLATELET MORPHOLOGY COMMENT NORMAL MORPHOLOGY (NORM); RBC MORPHOLOGY COMMENT NORMAL MORPHOLOGY (NORM); WBC MORPHOLOGY COMMENT NORMAL MORPHOLOGY (NORM)
[2017-07-10 09:06] LABS: MAGNESIUM 2.1 mg/dL (1.6-2.4)
[2017-07-10 09:20] LABS: BLOOD UREA NITROGEN 16 mg/dL (7-22); SERUM ALBUMIN 3.3 g/dL (3.5-4.8)
[2017-07-10] MEDS: Pantoprazole Inj 40 MG in Normal Saline Flush 10 ML IVP SCH (09:24)
[2017-07-10] MEDS: D5-1/2NS + 20mEq KCL 1,000 ML PRIMARY IV SCH (09:25)
--- NOTE | 2017-07-10 09:28 | DI ---
ABHISHEK, 07/10/2017 7:00 AM: Clinical History: Postoperative ileus. Previous Exam: 07/09/2017. There are still small bowel loops filled with gas in the left upper quadrant but they are not dilated . There is less stool in the colon indicating the patient has had a bowel movement since the previous exam. Reading: The bowel gas pattern is consistent with a very mild ileus.
--- NOTE | 2017-07-10 09:40 | PDOC(PROG) ---
Subjective Post Op Day: postop day 5 Joshi Catheter: No Flatus: Yes Diet: NPO Date and Time of Service: 05/09/2017 at 8:30 Interval History: Patient states that he feels better now that the NG tube is placed. Apparently yesterday the back later afternoon he developed nausea throughout and his distended abdomen. They had 750 mL of liquid after Place an NG tube. Nurses report that he had a large bowel movement today. Objective : Data - Labs CBC and BMP: 07/10/17 05:22 07/10/17 08:15 - Vital Signs Vital Signs and I&O: Vital Signs - Last Taken Temperature 98.8 F 07/10/17 07:47 Pulse Rate 83 07/10/17 07:47 Respiratory Rate 12 07/10/17 07:47 Blood Pressure 129/66 07/10/17 07:47 Pulse Ox 95 07/10/17 07:47 Intake and Output (24hr x 4 totals) 07/08/17 07/09/17 07/10/17 07/11/17 05:59 05:59 05:59 05:59 Intake Total 1000 / 1000 3242 / 3242 770 / 770 Output Total 1505 / 1505 2200 / 2200 1750 / 1750 100 / 100 Balance -505 / -505 1042 / 1042 -980 / -980 -100 / -100 Objective : Exam - GI/Abdominal GI/Abdominal Exam: Normal Bowel Sounds, Non Tender, Non Distended, Soft Additional GI/Abdominal Exam Details: There is no evidence of inguinal hernias on either side. Incision is clean dry not erythematous. Assessment and Plan - Patient Problems (1) Small bowel obstruction Current Visit: Yes Status: Acute Priority: High Onset Date: 07/04/17 Code(s): K56.69 - Other intestinal obstruction - Assessment / Plan Additional Assessment/Plan Details: I believe the patient is has a resolving his ileus as of yet. Would recommend going slow.. Dr. Hopkins about starting PPN today. Patient scheduled to have a PICC line placed at 1:00 today. Also check a UA to make sure he patient did not develop a urinary tract infection
--- NOTE | 2017-07-10 11:35 | PTI REPORT ---
Thank you for the referral of Nixon Manriquez. He was seen on 07/09/17 for an inpatient evaluation secondary to weakness. SUBJECTIVE: The patient is an 81-year-old male. The patient was accompanied by his who assisted with the subjective portion of the evaluation. The patient reports that he was brought to the hospital for stomach pain resulting from bowel obstruction. The patient's states that the patient has had 10 falls since May 08, 2017 and that most of the falls occurred inside of their fifth wheel trailer. The patient's states that the patient struggles to initiate leg movement and ambulation and that he has to concentrate on every step. The patient and his live in a fifth wheel trailer which has two steps. The patient's states the patient has both a front wheeled walker and a cane, but the front wheeled walker cannot fit inside the home and the patient does not use an assistive device. The patient's states that she does most of the housework and that the patient drives occasionally. The patient states he has a ledge in the shower that he can sit down on and there are several bars for him to use for assistance with toileting. PAST MEDICAL HISTORY: Past medical history can be found in the patient's medical record. OBJECTIVE FINDINGS: General observations: The patient was alert and oriented and found sitting up edge of bed with two liters of oxygen with present. Strength: Gross manual muscle testing of lower extremity revealed 4/5 strength in his bilateral lower extremities. The patient completed a tug assessment with mod assist that took 3 minutes and 51 seconds. Ambulation: The patient ambulates slowly and cautiously and struggles to maintain balance. ASSESSMENT: The patient has a fair prognosis secondary to comorbidities. The patient ambulates slowly and cautiously and struggles to maintain balance. He was easily distracted while completing the tug test and required mod verbal cueing for safety with his assistive device. The patient's tug test score is well below the cutoff score of 13.5 seconds, putting him at an increased risk for falls. A fall intervention is indicated for this patient. Problem List: Decreased lower extremity strength Decreased dynamic balance Patient is an increased fall risk Short-Term Goals: To be met by discharge from inpatient: Patient will be able to ambulate 150 feet with contact guard assist with min verbal cueing for safety. Patient will demonstrate 5/5 lower extremity strength bilaterally. Long-Term Goals: To be met following discharge from inpatient: Patient will be seen by outpatient physical therapy. TREATMENT PLAN: Patient will be seen B.I.D during the week and one time per day over the weekend as an inpatient to address the above goals and objectives. INITIAL TREATMENT: Treatment today consisted of the initial evaluation followed by dynamic standing balance. Dictated by: LACI Davila Supervised by: ALLI Reagan
--- NOTE | 2017-07-10 11:41 | PT.PROG ---
Progress Note Progress Note: S. Patient stated that he is feeling better this morning. O. Patient ambulated 15 feet around his room and was left in bed with alarm and call light. A. Patient required max assist with ambulation. he continues to be very weak and would continue to benefit from skilled therapy at this time. P. Continue POC.
--- NOTE | 2017-07-10 14:17 | OTI REPORT ---
Thank you for the referral of Nixon Manriquez. He was seen on 07/09/17 for an occupational therapy inpatient evaluation secondary to weakness. SUBJECTIVE: The patient is an 81-year-old male who is being seen today secondary to abdomen surgery. The patient is having increased confusion. He had an ileus after GI surgery and a small bowel obstruction, hypertension, and some delirium. The patient reports that he had a bowel movement at 4:00 AM this morning. The patient demonstrates a lot of right sided leg weakness. The patient's was also present during the assessment and contributed a lot to the subjective component. The patient's states that the patient falls quite frequently and she states he always falls to the right. Since May 08, 2017 the patient's has documented 10 falls. She says that his right leg gets caught and he tends to always fall to the right. The patient and his live in a fifth wheel trailer where they have lived for the last 17 years. She says that there is a step to get onto the ramp and once up the ramp there is a step to get into the house. Inside of the fifth wheel there are two steps to go to the top level. The patient does use a cane at times in the fifth wheel and sometimes he does not use anything. When he is not using anything is usually when he falls the most. The patient reports that his "brain message" to the leg isn't working. He says sometimes he feels like his leg is cemented to the ground. The patient is having difficulty getting off of his recliner and loses his balance. The patient's reports she is going to start taking over his medication management. The patient piped in and stated that he was going to go off of all of his medications. Their bathroom is set up with a standard toilet and the patient's says he has to rock back and forth but uses a grab bar to stand up. In their shower they have a walk-in shower and there is a ledge that the patient can sit on in the shower. The patient's also reports that the patient has seen Dr. Briggs for fluid in the brain and has had to have two spinal taps in the past. PAST MEDICAL HISTORY: Past medical history can be found in the patient's medical record. OBJECTIVE FINDINGS: Bed mobility: Today the patient was able to come from supine to sit with mod assist. Cognition: Today the Renan Cognitive Assessment was completed (MoCA) Executive function: 2/5 Namin/3 Attention: 3/6 Language: 2/6 Abstraction: 1/2 Delayed recall: 0/5 Orientation: 5/6 The patient had a total score of 15/30. 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 Activities of daily living: The patient requires max assist for lower extremity dressing and min assist for upper extremity dressing. Range of motion: The patient's range of motion in the upper extremities is within functional limits. He has approximately 120 degrees of shoulder flexion bilaterally. Strength: Strength in shoulder flexion was 3+/5, abduction was 3/5, internal/ external rotation was 3+/5, elbow flexion/extension was 4/5, and wrist flexion/ extension was 4/5. Pain: The patient reports that he is experiencing pain in his stomach; however, he was not able to rate his pain on the verbal analog scale (0=no pain, 10= worst pain) ASSESSMENT: Patient would benefit from further cognitive testing with a Cognitive Performance Test to get an actual processing level on him. Problem List: Decreased safety awareness Decreased ability to perform ADLs Decreased strength Decreased activity tolerance Decreased ability to perform functional transfers Short-Term Goals: To be met by discharge from inpatient: Patient will be able to dress LE and UE with CGA. Patient will be able to increase UE strength to 4+/5 throughout all ranges. Patient will be able to complete a toilet transfer with min. A. Patient will be able to complete the Cognitive Performance Test to further assess his cognitive processing abilities within 2-3 days. Long-Term Goals: To be met following discharge from inpatient: Patient will be able to return home with his demonstrating safety with all functional transfers. Patient will be able to complete all simple ADL's such as dressing self independently. TREATMENT PLAN: Patient will be seen B.I.D during the week and one time per day over the weekend as an inpatient to address the above goals and objectives. It may be a good idea to do a home evaluation as it does sound like the patient has had several falls within his home. Discussion with his and patient may include looking into a living situation to where the patient doesn't have to negotiate stairs. INITIAL TREATMENT: Treatment today consisted of the initial evaluation and activities only. ELIZA
--- NOTE | 2017-07-10 15:04 | OT AM DAY ---
Diagnosis : Weakness AM - Occupational Therapy S: The patient had an NG tube placed in him yesterday. The patient reported that he needed to use the bathroom. O: Two times today the patient needed to urinate and one time he had a bowel movement. OT assisted with the transfer from the bed to the commode. In between that time, the patient was not continent and urinated on the floor without warning. The patient then had a bowel movement. The patient was not able to complete his toilet hygiene and was dependent for this. The patient stood with min assist to keep balance. The patient then stated that he had to urinate again so he sat down and completed another toilet transfer. Again, the patient was dependent with all hygiene. We worked on washing hands and simple hygiene tasks and the patient was able to do so with verbal cues. A: The patient needed verbal cues to continue to stay focused on task at hand today. He gets distracted easily. We will continue with strengthening exercises this afternoon as the patient was pretty wiped out after today's session. P: Continue seeing patient BID during the week and one time per day over the weekend for upper extremity strengthening, ADLs, and overall functional mobility. ELIZA
--- NOTE | 2017-07-10 15:41 | DI ---
ULTRASOUND GUIDED VENOUS ACCESS, 07/10/2017 7:00 AM Clinical History: Small bowel obstruction with postoperative ileus. The patient will require hyperali mentation. Previous Exam: None at this facility. 2D ultrasound was used to identify the right brachial vein for venous access to place a PICC line. Sc ans over the left arm show a normal left brachial vein but there was considerable edema of the forear m as well as the lower half of the upper arm and therefore the right arm was utilized. The puncture s ite was prepped with ChloraPrep with Tint and draped in the usual sterile fashion. This vein was succ essfully cannulated using realtime ultrasound guidance. The introducer sheath was advanced and positi oned without difficulty. Reading: Successful and uncomplicated cannulation of the right brachial vein.
[2017-07-10] MEDS: CALCIUM IV SCH ×2 (16:07)
[2017-07-10] MEDS: MULTIVITAMIN IV SCH ×2 (16:07)
[2017-07-10] MEDS: LYTES IV SCH ×2 (16:07)
[2017-07-10] MEDS: AA DEXT IV SCH ×2 (16:07)
[2017-07-10] MEDS ORDERED: Sodium Chloride 0.9% 1,000 ML IV SCH (16:15)
--- NOTE | 2017-07-10 16:16 | PDOC(PROG) ---
General Note Progress Note: I saw the patient approximately 12:30 PM today. I reviewed the last several days with Dr. Lord and discuss his care with Dr. Macdonald. The patient reports he feels much better with the NG tube in. He had a large bowel movement this morning. He reports he is passing gas. He doesn't feel bloated. He doesn't have nausea. He still has some abdominal pain. Patient voided with the catheter out. The nurse reports he had 100 mL of dark concentrated urine. He lost 5 pounds since yesterday. His NG tube has put out quite a bit. He is probably a little dry. Dr. Macdonald will add some other IV fluids. My plan is a 2 view abdominal x-ray tomorrow. Depending on the findings we'll consider a Gastrografin challenge for both diagnostic and therapeutic reasons. When I examined him he is tender in the left mid abdomen. I feel dilated loops through his abdominal wall. I discussed all the findings with the patient and his . Patient Problems - Patient Problem List (1) Small bowel obstruction Current Visit: Yes Status: Acute Onset Date: 07/04/17 Priority: High Comment: The obstruction was surgically corrected. He has an ileus at the present time. Check an x-ray tomorrow and consider a Gastrografin challenge. Discussed with all parties involved. Code(s): K56.69 - Other intestinal obstruction Category: Medical
--- NOTE | 2017-07-10 17:04 | DI ---
AP CHEST X-RAY, 07/10/2017 8:00 AM : Clinical History: Small bowel obstruction. Postoperative ileus. The patient requires hyperalimentatio n. Verification of PICC line catheter position. Previous Exam: 07/09/2017. There is no acute soft tissue or bony abnormality. Heart size is normal. Lungs are clear. Mediastinal structures are normal. The catheter tip is barely into the right atrium. The catheter was withdrawn 3 cm and secured in position. Readin. Normal chest x-ray. 2. The catheter tip on this film is at the junction between the right atrium and superior vena cava and the catheter was withdrawn 3 cm from this position.
--- NOTE | 2017-07-10 17:33 | PT.PROG ---
Progress Note Progress Note: S: Nixon reports that he is feeling much better than yesterday and he is not sick to his stomach. O: Nixon transferred with max assist to sitting on EOB. Treatment consisted of: LE strengthening exercises: sup heel slides, SAQ, seated marching, LAQ, HS curls and hip ext with red TB, all 10xea; functional activity consisted of STS, 10x with mod assist. Nixon was left in hospital bed; bed alarm on and call light within reach. A: Nixon tolerated therapy well today. He continues to be very weak and requires mod-max assist with transfers. Nixon requires frequent verbal cuing for safety with his AD. Nixon would continue to benefit from skilled therapy at this time. P: Continue POC.
[2017-07-10] MEDS: Fat Emulsions Inj 20% 250 ML IV SCH (20:25)
--- NOTE | 2017-07-10 21:34 | PDOC(PROG) ---
Date and Time of Service: 07/10/20172128 Interval History: patient seen and evaluated earlier. no chest pains or shortness of breath, abdomen feels much better. NG tube in place and more alert and oriented today. present feels patient doing much better. Having BM. Objective : Data - Labs CBC and BMP: 07/10/17 05:22 07/10/17 08:15 Additional Lab Results: Laboratory Results 07/04/17 07/04/17 07/04/17 Range/Units 23:13 23:19 23:19 WBC 7.41 (4.8-10.8) 10^3/uL RBC 4.90 (4.70-6.10) 10^6/uL Hgb 14.8 (14.0-18.0) g/dL Hct 44.3 (42.0-52.0) % MCV 90.4 H (80-90) FL MCH 30.2 (27-31) PG MCHC 33.4 (33-37) g/dL RDW Std Deviation 44.3 (39-50) fL RDW Coeff of Fernando 13.5 (11.5-14.5) % Plt Count 308 (140-350) 10*3/uL MPV 10.3 (7.4-12.2) FL Immature Gran % (Auto) 0.3 (0-5) % Neut % (Auto) 56.9 (50-80) % Lymph % (Auto) 29.1 (10-50) % Carter % (Auto) 8.8 (5-15) % Eos % (Auto) 4.2 (0-8) % Baso % (Auto) 0.7 (0-1) % Immature Gran # (Auto) 0.02 10*3/UL Neut # (Auto) 4.22 10*3/UL Lymph # (Auto) 2.16 10*3/uL Carter # (Auto) 0.65 (0.3-0.8) 10*3/UL Eos # (Auto) 0.31 10*3/UL Baso # (Auto) 0.05 10*3/UL Neutrophils % (Manual) (50-80) % Band Neutrophils % (0-10) % Lymphocytes % (Manual) (10-50) % Monocytes % (Manual) (0-12) % Eosinophils % (Manual) (0-8) % Basophils % (Manual) Metamyelocytes % Myelocytes % Promyelocytes % Blast Cells WBC Morphology Comment Normal morphology (NORM) Plt Morphology Comment Normal morphology (NORM) RBC Morph Comment Normal morphology (NORM) Sodium 138 (135-145) meq/L Potassium 4.4 (3.8-5.2) meq/L Chloride 96 L (98-112) meq/L Carbon Dioxide 29 (23-33) meq/L Anion Gap 13 (5-20) BUN 21 (7-22) mg/dL Creatinine 0.9 (0.70-1.50) mg/dL BUN/Creatinine Ratio 23.33 H (6-20) Glucose 95 (78-110) mg/dL Calculated Osmolality 288.0 (267-292) mOsm/kg Lactic Acid (0.70-2.10) MMOL/L Calcium 10.8 H (8.7-10.7) mg/dL Magnesium (1.6-2.4) mg/dL Total Bilirubin 0.8 (0.3-1.2) mg/dL AST 37 (21-57) IU/L ALT 30 (21-72) IU/L Alkaline Phosphatase 74 (38-126) IU/L Total Protein 8.7 H (6.1-8.0) g/dL Albumin 4.7 (3.5-4.8) g/dL Globulin 4.0 (2.50-4.10) g/dL Albumin/Globulin Ratio 1.10 L (1.3-2.0) mg/g Amylase 82 (30-110) U/L Lipase 93 (23-300) IU/L Ur Collection Type Clean catch urine Urine Color Yellow (Y) Urine Clarity Clear (CLEAR) Urine pH 6.0 (5.0-8.5) Ur Specific Datil 1.010 (1.005-1.030) Urine Protein Negative (NEG) mg/dl Urine Glucose (UA) Negative (NEG) mg/dL Urine Ketones Negative (NEG) Urine Occult Blood Trace-intact H (NEG) Urine Nitrate Negative (NEG) Urine Bilirubin Negative (NEG) Urine Urobilinogen 0.2 (0.2) EU/dL Ur Leukocyte Esterase Negative (NEG) Urine RBC 1-3 (NONE) /hpf Urine WBC 1-3 (NONE) Ur Squamous Epith Cells Rare (NONE) Ur Renal Epithelial Cell None (NONE) Urine Crystals None Urine Bacteria Rare (NONE) Urine Casts None (NONE) Urine Mucus None (NONE) Urine Trichomonas None (NONE) Urine Yeast None (NONE) Ur Culture Indicated? Culture not set 07/05/17 07/05/17 07/05/17 Range/Units 02:11 09:31 09:31 WBC 13.01 H (4.8-10.8) 10^3/uL RBC 4.96 (4.70-6.10) 10^6/uL Hgb 14.8 (14.0-18.0) g/dL Hct 44.7 (42.0-52.0) % MCV 90.1 H (80-90) FL MCH 29.8 (27-31) PG MCHC 33.1 (33-37) g/dL RDW Std Deviation 43.7 (39-50) fL RDW Coeff of Fernando 13.5 (11.5-14.5) % Plt Count 302 (140-350) 10*3/uL MPV 9.3 (7.4-12.2) FL Immature Gran % (Auto) 0.1 (0-5) % Neut % (Auto) 93.8 H (50-80) % Lymph % (Auto) 3.2 L (10-50) % Carter % (Auto) 2.9 L (5-15) % Eos % (Auto) 0 (0-8) % Baso % (Auto) 0 (0-1) % Immature Gran # (Auto) 0.01 10*3/UL Neut # (Auto) 12.20 10*3/UL Lymph # (Auto) 0.42 10*3/uL Carter # (Auto) 0.38 (0.3-0.8) 10*3/UL Eos # (Auto) 0 10*3/UL Baso # (Auto) 0 10*3/UL Neutrophils % (Manual) (50-80) % Band Neutrophils % (0-10) % Lymphocytes % (Manual) (10-50) % Monocytes % (Manual) (0-12) % Eosinophils % (Manual) (0-8) % Basophils % (Manual) Metamyelocytes % Myelocytes % Promyelocytes % Blast Cells WBC Morphology Comment Normal morphology (NORM) Plt Morphology Comment Normal morphology (NORM) RBC Morph Comment Normal morphology (NORM) Sodium (135-145) meq/L Potassium (3.8-5.2) meq/L Chloride (98-112) meq/L Carbon Dioxide (23-33) meq/L Anion Gap (5-20) BUN (7-22) mg/dL Creatinine (0.70-1.50) mg/dL BUN/Creatinine Ratio (6-20) Glucose (78-110) mg/dL Calculated Osmolality (267-292) mOsm/kg Lactic Acid 1.3 (0.70-2.10) MMOL/L Calcium (8.7-10.7) mg/dL Magnesium (1.6-2.4) mg/dL Total Bilirubin (0.3-1.2) mg/dL AST (21-57) IU/L ALT (21-72) IU/L Alkaline Phosphatase (38-126) IU/L Total Protein (6.1-8.0) g/dL Albumin (3.5-4.8) g/dL Globulin (2.50-4.10) g/dL Albumin/Globulin Ratio (1.3-2.0) mg/g Amylase 70 (30-110) U/L Lipase (23-300) IU/L Ur Collection Type Urine Color (Y) Urine Clarity (CLEAR) Urine pH (5.0-8.5) Ur Specific Datil (1.005-1.030) Urine Protein (NEG) mg/dl Urine Glucose (UA) (NEG) mg/dL Urine Ketones (NEG) Urine Occult Blood (NEG) Urine Nitrate (NEG) Urine Bilirubin (NEG) Urine Urobilinogen (0.2) EU/dL Ur Leukocyte Esterase (NEG) Urine RBC (NONE) /hpf Urine WBC (NONE) Ur Squamous Epith Cells (NONE) Ur Renal Epithelial Cell (NONE) Urine Crystals Urine Bacteria (NONE) Urine Casts (NONE) Urine Mucus (NONE) Urine Trichomonas (NONE) Urine Yeast (NONE) Ur Culture Indicated? 07/05/17 07/05/17 07/06/17 Range/Units 09:31 09:31 05:50 WBC 10.13 (4.8-10.8) 10^3/uL RBC 4.11 L (4.70-6.10) 10^6/uL Hgb 12.4 L (14.0-18.0) g/dL Hct 37.8 L (42.0-52.0) % MCV 92.0 H (80-90) FL MCH 30.2 (27-31) PG MCHC 32.8 L (33-37) g/dL RDW Std Deviation 45.6 (39-50) fL RDW Coeff of Fernando 13.7 (11.5-14.5) % Plt Count 262 (140-350) 10*3/uL MPV 9.6 (7.4-12.2) FL Immature Gran % (Auto) 0.1 (0-5) % Neut % (Auto) 76.5 (50-80) % Lymph % (Auto) 12.4 (10-50) % Carter % (Auto) 9.7 (5-15) % Eos % (Auto) 1.1 (0-8) % Baso % (Auto) 0.2 (0-1) % Immature Gran # (Auto) 0.01 10*3/UL Neut # (Auto) 7.75 10*3/UL Lymph # (Auto) 1.26 10*3/uL Carter # (Auto) 0.98 H (0.3-0.8) 10*3/UL Eos # (Auto) 0.11 10*3/UL Baso # (Auto) 0.02 10*3/UL Neutrophils % (Manual) (50-80) % Band Neutrophils % (0-10) % Lymphocytes % (Manual) (10-50) % Monocytes % (Manual) (0-12) % Eosinophils % (Manual) (0-8) % Basophils % (Manual) Metamyelocytes % Myelocytes % Promyelocytes % Blast Cells WBC Morphology Comment Normal morphology (NORM) Plt Morphology Comment Normal morphology (NORM) RBC Morph Comment Normal morphology (NORM) Sodium 137 (135-145) meq/L Potassium 4.4 (3.8-5.2) meq/L Chloride 97 L (98-112) meq/L Carbon Dioxide 28 (23-33) meq/L Anion Gap 12 (5-20) BUN 18 (7-22) mg/dL Creatinine 0.8 (0.70-1.50) mg/dL BUN/Creatinine Ratio 22.50 H (6-20) Glucose 123 H (78-110) mg/dL Calculated Osmolality 286.0 (267-292) mOsm/kg Lactic Acid (0.70-2.10) MMOL/L Calcium 10.0 (8.7-10.7) mg/dL Magnesium (1.6-2.4) mg/dL Total Bilirubin 1.0 (0.3-1.2) mg/dL AST 35 (21-57) IU/L ALT 29 (21-72) IU/L Alkaline Phosphatase 76 (38-126) IU/L Total Protein 7.9 (6.1-8.0) g/dL Albumin 4.4 (3.5-4.8) g/dL Globulin 3.5 (2.50-4.10) g/dL Albumin/Globulin Ratio 1.20 L (1.3-2.0) mg/g Amylase (30-110) U/L Lipase 70 (23-300) IU/L Ur Collection Type Urine Color (Y) Urine Clarity (CLEAR) Urine pH (5.0-8.5) Ur Specific Datil (1.005-1.030) Urine Protein (NEG) mg/dl Urine Glucose (UA) (NEG) mg/dL Urine Ketones (NEG) Urine Occult Blood (NEG) Urine Nitrate (NEG) Urine Bilirubin (NEG) Urine Urobilinogen (0.2) EU/dL Ur Leukocyte Esterase (NEG) Urine RBC (NONE) /hpf Urine WBC (NONE) Ur Squamous Epith Cells (NONE) Ur Renal Epithelial Cell (NONE) Urine Crystals Urine Bacteria (NONE) Urine Casts (NONE) Urine Mucus (NONE) Urine Trichomonas (NONE) Urine Yeast (NONE) Ur Culture Indicated? 07/06/17 07/08/17 07/08/17 Range/Units 05:50 04:55 04:55 WBC 7.75 (4.8-10.8) 10^3/uL RBC 3.78 L (4.70-6.10) 10^6/uL Hgb 11.4 L (14.0-18.0) g/dL Hct 35.2 L (42.0-52.0) % MCV 93.1 H (80-90) FL MCH 30.2 (27-31) PG MCHC 32.4 L (33-37) g/dL RDW Std Deviation 44.1 (39-50) fL RDW Coeff of Fernando 13.3 (11.5-14.5) % Plt Count 243 (140-350) 10*3/uL MPV 10.0 (7.4-12.2) FL Immature Gran % (Auto) 0.1 (0-5) % Neut % (Auto) 68.9 (50-80) % Lymph % (Auto) 12.0 (10-50) % Carter % (Auto) 13.8 (5-15) % Eos % (Auto) 4.8 (0-8) % Baso % (Auto) 0.4 (0-1) % Immature Gran # (Auto) 0.01 10*3/UL Neut # (Auto) 5.34 10*3/UL Lymph # (Auto) 0.93 10*3/uL Carter # (Auto) 1.07 H (0.3-0.8) 10*3/UL Eos # (Auto) 0.37 10*3/UL Baso # (Auto) 0.03 10*3/UL Neutrophils % (Manual) (50-80) % Band Neutrophils % (0-10) % Lymphocytes % (Manual) (10-50) % Monocytes % (Manual) (0-12) % Eosinophils % (Manual) (0-8) % Basophils % (Manual) Metamyelocytes % Myelocytes % Promyelocytes % Blast Cells WBC Morphology Comment Normal morphology (NORM) Plt Morphology Comment Normal morphology (NORM) RBC Morph Comment Normal morphology (NORM) Sodium 137 138 (135-145) meq/L Potassium 4.3 4.1 (3.8-5.2) meq/L Chloride 102 103 (98-112) meq/L Carbon Dioxide 27 29 (23-33) meq/L Anion Gap 8 6 (5-20) BUN 17 11 (7-22) mg/dL Creatinine 0.8 0.7 (0.70-1.50) mg/dL BUN/Creatinine Ratio 21.25 H 15.71 (6-20) Glucose 108 98 (78-110) mg/dL Calculated Osmolality 286.0 284.0 (267-292) mOsm/kg Lactic Acid (0.70-2.10) MMOL/L Calcium 9.0 8.9 (8.7-10.7) mg/dL Magnesium 1.8 (1.6-2.4) mg/dL Total Bilirubin 1.0 0.7 (0.3-1.2) mg/dL AST 24 27 (21-57) IU/L ALT 29 26 (21-72) IU/L Alkaline Phosphatase 51 47 (38-126) IU/L Total Protein 5.6 L 5.7 L (6.1-8.0) g/dL Albumin 3.0 L 3.0 L (3.5-4.8) g/dL Globulin 2.6 2.7 (2.50-4.10) g/dL Albumin/Globulin Ratio 1.10 L 1.10 L (1.3-2.0) mg/g Amylase < 30 L (30-110) U/L Lipase 44 (23-300) IU/L Ur Collection Type Urine Color (Y) Urine Clarity (CLEAR) Urine pH (5.0-8.5) Ur Specific Datil (1.005-1.030) Urine Protein (NEG) mg/dl Urine Glucose (UA) (NEG) mg/dL Urine Ketones (NEG) Urine Occult Blood (NEG) Urine Nitrate (NEG) Urine Bilirubin (NEG) Urine Urobilinogen (0.2) EU/dL Ur Leukocyte Esterase (NEG) Urine RBC (NONE) /hpf Urine WBC (NONE) Ur Squamous Epith Cells (NONE) Ur Renal Epithelial Cell (NONE) Urine Crystals Urine Bacteria (NONE) Urine Casts (NONE) Urine Mucus (NONE) Urine Trichomonas (NONE) Urine Yeast (NONE) Ur Culture Indicated? 07/09/17 07/10/17 07/10/17 Range/Units 04:00 05:22 08:15 WBC 10.05 (4.8-10.8) 10^3/uL RBC 4.34 L (4.70-6.10) 10^6/uL Hgb 12.8 L (14.0-18.0) g/dL Hct 40.1 L (42.0-52.0) % MCV 92.4 H (80-90) FL MCH 29.5 (27-31) PG MCHC 31.9 L (33-37) g/dL RDW Std Deviation 44.1 (39-50) fL RDW Coeff of Fernando 13.2 (11.5-14.5) % Plt Count 319 (140-350) 10*3/uL MPV 10.4 (7.4-12.2) FL Immature Gran % (Auto) (0-5) % Neut % (Auto) (50-80) % Lymph % (Auto) (10-50) % Carter % (Auto) (5-15) % Eos % (Auto) (0-8) % Baso % (Auto) (0-1) % Immature Gran # (Auto) 10*3/UL Neut # (Auto) 10*3/UL Lymph # (Auto) 10*3/uL Carter # (Auto) (0.3-0.8) 10*3/UL Eos # (Auto) 10*3/UL Baso # (Auto) 10*3/UL Neutrophils % (Manual) 70 (50-80) % Band Neutrophils % 4 (0-10) % Lymphocytes % (Manual) 16 (10-50) % Monocytes % (Manual) 6 (0-12) % Eosinophils % (Manual) 4 (0-8) % Basophils % (Manual) Not Reportable Metamyelocytes % Not Reportable Myelocytes % Not Reportable Promyelocytes % Not Reportable Blast Cells Not Reportable WBC Morphology Comment Normal morphology (NORM) Plt Morphology Comment Normal morphology (NORM) RBC Morph Comment Normal morphology (NORM) Sodium 139 138 (135-145) meq/L Potassium 4.1 4.0 (3.8-5.2) meq/L Chloride 103 102 (98-112) meq/L Carbon Dioxide 29 26 (23-33) meq/L Anion Gap 7 10 (5-20) BUN 8 16 (7-22) mg/dL Creatinine 0.7 0.8 (0.70-1.50) mg/dL BUN/Creatinine Ratio 11.42 20.00 (6-20) Glucose 96 84 (78-110) mg/dL Calculated Osmolality 285.0 285.0 (267-292) mOsm/kg Lactic Acid 0.8 (0.70-2.10) MMOL/L Calcium 8.9 8.7 (8.7-10.7) mg/dL Magnesium 2.2 2.1 (1.6-2.4) mg/dL Total Bilirubin 0.7 1.0 (0.3-1.2) mg/dL AST 29 24 (21-57) IU/L ALT 30 29 (21-72) IU/L Alkaline Phosphatase 53 62 (38-126) IU/L Total Protein 5.8 L 6.0 L (6.1-8.0) g/dL Albumin 3.1 L 3.3 L (3.5-4.8) g/dL Globulin 2.7 2.7 (2.50-4.10) g/dL Albumin/Globulin Ratio 1.10 L 1.20 L (1.3-2.0) mg/g Amylase (30-110) U/L Lipase (23-300) IU/L Ur Collection Type Urine Color (Y) Urine Clarity (CLEAR) Urine pH (5.0-8.5) Ur Specific Datil (1.005-1.030) Urine Protein (NEG) mg/dl Urine Glucose (UA) (NEG) mg/dL Urine Ketones (NEG) Urine Occult Blood (NEG) Urine Nitrate (NEG) Urine Bilirubin (NEG) Urine Urobilinogen (0.2) EU/dL Ur Leukocyte Esterase (NEG) Urine RBC (NONE) /hpf Urine WBC (NONE) Ur Squamous Epith Cells (NONE) Ur Renal Epithelial Cell (NONE) Urine Crystals Urine Bacteria (NONE) Urine Casts (NONE) Urine Mucus (NONE) Urine Trichomonas (NONE) Urine Yeast (NONE) Ur Culture Indicated? - Imaging X-Ray Status: Image Reviewed by Me (small bowel loops look better, less that look dilated on my view--perhaps localized ileus?) Objective : Exam - General General Appearance: No Acute Distress, Cooperative Additional General Exam Details: Vital Signs (24 hrs) Temp Pulse Resp BP BP Pulse Ox 07/10/17 19:00 79 18 07/10/17 16:08 98.5 F 79 18 142/62 94 07/10/17 11:24 98.8 F 83 17 132/65 95 07/10/17 09:40 98.8 F 77 13 128/66 98 07/10/17 07:47 98.8 F 83 12 129/66 95 07/10/17 07:00 12 07/10/17 04:56 95 07/10/17 04:52 97.2 F 82 20 121/57 94 07/10/17 00:53 98.6 F 93 21 148/80 94 - Eye Eye Exam: No Scleral Icterus - ENT ENT Exam: Mucous Membranes Moist - Respiratory Respiratory Exam: Clear to Auscultation - Bilaterally, Breathing Non Labored - Cardiovascular Cardiovascular Exam: RRR, No Clicks, No Gallops, No Rubs, Systolic Murmur ( slight?), No JVD - GI/Abdominal GI/Abdominal Exam: Non Tender, Non Distended, Soft, Diminished Bowel Sounds - Extremities Extremities Exam: Normal Capillary Refill, No Clubbing Present, No Edema Present , No Cyanosis Present - Neurological Neurological Exam: Alert, No Facial Droop, Speech Intact / Clear, Moves All Extremities Equally Additional Neurological Exam Details: orientation improved, has been waxing and waning. - Psychiatric Psychiatric Exam: Normal Affect, Normal Mood Assessment and Plan - Patient Problems (1) Ileus following gastrointestinal surgery Current Visit: Yes Status: Acute Code(s): K91.3 - Postprocedural intestinal obstruction (2) Small bowel obstruction Current Visit: Yes Status: Acute Priority: High Onset Date: 07/04/17 Code(s): K56.69 - Other intestinal obstruction (3) Antalgic gait Current Visit: Yes Status: Acute Code(s): R26.89 - Other abnormalities of gait and mobility (4) HTN (hypertension) Current Visit: Yes Status: Acute Code(s): I10 - Essential (primary) hypertension Qualifiers: Hypertension type: essential hypertension Qualified Code(s): I10 - Essential (primary) hypertension (5) Delirium Current Visit: Yes Status: Acute Code(s): R41.0 - Disorientation, unspecified - Assessment / Plan Additional Assessment/Plan Details: PICC line placed today, TPN started discussed with surgery, will add 50 mL/hour NS to maintain hydration as well keep NG tube haldol PRN for delirium KUB in AM; gastrograffin follow thru per surgery once ileus resolves, swing bed for strengthening and conditioning may benefit from [facility] inpatient CSF evaluation in future. no opiates with ileus.
[2017-07-11] MEDS: Metoclopramide Inj 10 MG/2 ML VIAL IVP SCH ×4 (02:12→20:02)
[2017-07-11] MEDS: HEPARIN 5000 UNIT/1 ML SUBCUT SCH (05:12)
[2017-07-11 05:48] LABS: BLOOD UREA NITROGEN 15 mg/dL (7-22); BUN/CREATININE RATIO 18.75 (6-20); MAGNESIUM 2.2 mg/dL (1.6-2.4); SERUM ALBUMIN 3.2 g/dL (3.5-4.8)
--- NOTE | 2017-07-11 08:16 | DI ---
KUB and UPRIGHT ABDOMEN, 07/11/2017 7:00 AM: Clinical History: Postoperative ileus. Previous Exam: 07/10/2017. There are more mildly dilated loops of small bowel present in the left upper quadrant and left flank region. On the upright film, air-fluid levels are present. There is gas present in loops of small bow el corresponding to the distal half of the small bowel. Gas is also present in the colon. Reading: The pattern on the current exam is more suspicious for a recurrent partial small bowel obstruction ra ther than merely a postoperative ileus. There are dilated loops of small bowel in the left upper quad rant with multiple air-fluid levels.
--- NOTE | 2017-07-11 08:23 | DI ---
INSERTION OF PICC LINE, 07/10/2017 12:00 PM: Clinical History: Postoperative ileus following surgery for a partial small bowel obstruction. The pa tient will require hyperalimentation. Technique: A "time out" session was performed to verify the patient's name and date of prior to obtaining informed signed consent prior for this procedure. The left arm was not utilized because th ere was extensive edema from the forearm extending to the mid humeral region. Therefore, the right ar m was prepped with ChloraPrep with Tint. Venipuncture was achieved under sterile conditions as alcrissy y described in the ultrasound report. A 5 Mosotho double lumen Bard Power Picc Solo PICC catheter was inserted without difficulty. The tip position was initially identified with an AP portable chest x-ra y and then adjusted as necessary. The standard dry sterile dressing kit was used to secure the cathet er. The patient tolerated the procedure well and was discharged in stable condition. Standard orders for wound care and dressing changes were written. Net Web Application Developer: Matheus Dockery MD Blowing Weasand: None. Complications/Medications: None. Reading: PICC line placement as above.
[2017-07-11] MEDS: Pantoprazole Inj 40 MG in Normal Saline Flush 10 ML IVP SCH (09:26)
--- NOTE | 2017-07-11 10:13 | PDOC(PROG) ---
Date and Time of Service: 07/11/2017 10 AM Interval History: Subjective Patient is denying complaint. He is denying abdominal pain, shortness of breath , no nausea. He said he did have a bowel movement the nurses did verify that he have a bowel movement last night. He said he is passing gas. He had problem with his walking for a few months now. Apparently he had a laminectomy back in March and also from the description he had multiple spinal tap to drain the fluid at times after that he would improve just for short period of time and and they were talking to him about maybe needing to having a shunt. He uses a cane and a walker. He had problem with his urination with him having accidents at times. Objective : Data - Labs CBC and BMP: 07/10/17 05:22 07/11/17 03:55 Objective : Exam - General General Appearance: No Acute Distress, Cooperative - Head Head Exam: Normal Inspection, Atraumatic - Eye Eye Exam: Normal Appearance - Neck Neck Exam: Normal Inspection - Respiratory Respiratory Exam: Clear to Auscultation - Bilaterally - Cardiovascular Cardiovascular Exam: RRR - GI/Abdominal GI/Abdominal Exam: Soft Additional GI/Abdominal Exam Details: Slight distention in the upper left quadrant. The wound looks clean. I can not hear bowel sounds. Some minimal tenderness but no rebound diffusely. - Rectal Rectal Exam: Deferred - External Exam: Deferred - Extremities Extremities Exam: Normal Inspection - Back Back Exam: Normal Inspection - Neurological Neurological Exam: Alert, CN II-XII Intact, Speech Intact / Clear, Moves All Extremities Equally - Psychiatric Psychiatric Exam: Normal Affect - Integumentary Integumentary Exam: Normal Color Assessment and Plan - Patient Problems (1) Small bowel obstruction Current Visit: Yes Status: Acute Priority: High Onset Date: 07/04/17 Comment: He is status post surgery and lysis of adhesions. However since the surgery he is been having abdominal distention and had to have NG inserted to provide relief. This was inserted 2 days ago. He is having a small bowel follow-through study with Gastrografin today. He's not in pain. We'll see what the results will show. For nutrition he was started on TPN continue. Potassium slightly on the low side will check with the pharmacy whether there is potassium in the bag if not will add some potassium to the fluid. Code(s): K56.69 - Other intestinal obstruction (2) Delirium Current Visit: Yes Status: Acute Comment: He had an episode of confusion that's resolved. Code(s): R41.0 - Disorientation, unspecified (3) DVT prophylaxis Current Visit: Yes Status: Acute Comment: He is on heparin (4) Ileus following gastrointestinal surgery Current Visit: Yes Status: Acute Comment: He did have an ileus post surgery and it's not clear whether he still continue to have an ileus or recurrent obstruction. As I said he'll have the Gastrografin study today. He is on regular Reglan continue. We'll see what the imaging will show. Code(s): K91.3 - Postprocedural intestinal obstruction
--- NOTE | 2017-07-11 11:47 | PDOC(PROG) ---
Subjective Post Op Day: 6 Pain Management: IV Joshi Catheter: No Flatus: Yes Diet: NPO Ambulating: No Date and Time of Service: 07/11/2017 11:30 AM Interval History: Patient reports he felt okay until recently. He did have 2 bowel movements since midnight. He is passing some gas. His x-ray this morning showed of worsening ileus versus obstruction. He got Gastrografin through his NG tube and his tube is now clamped. He reports he started to have abdominal cramping but no nausea. Patient has ambulated minimally. He doesn't do much ambulating at home. Objective : Data - Labs CBC and BMP: 07/10/17 05:22 07/11/17 03:55 - Imaging Imaging Details: Worsening of his small bowel obstruction or ileus. - Vital Signs Vital Signs and I&O: Vital Signs - Last Taken Temperature 98.6 F 07/11/17 07:15 Pulse Rate 71 07/11/17 07:15 Respiratory Rate 20 07/11/17 07:15 Blood Pressure 144/69 07/11/17 07:15 Pulse Ox 93 07/11/17 07:15 Intake and Output (24hr x 4 totals) 07/09/17 07/10/17 07/11/17 07/12/17 05:59 05:59 05:59 05:59 Intake Total 3242 / 3242 770 / 770 1980 / 1980 Output Total 2200 / 2200 1750 / 1750 1125 / 1125 150 / 150 Balance 1042 / 1042 -980 / -980 855 / 855 -150 / -150 Objective : Exam - General General Appearance: No Acute Distress, Cooperative - Respiratory Respiratory Exam: Clear to Auscultation - Bilaterally, Breathing Non Labored - Cardiovascular Cardiovascular Exam: RRR, No Murmur - GI/Abdominal GI/Abdominal Exam: Soft, Distended, Hypoactive Bowel Sounds Additional GI/Abdominal Exam Details: The abdomen is slightly distended. It is soft except in the left mid abdomen. I believe I can feel dilated loops of bowel. There is moderate tenderness. There are no signs of peritoneal irritation. He has bowel tones but some of them are rushes and tinkles. - Neurological Neurological Exam: Alert - Psychiatric Psychiatric Exam: Normal Affect, Normal Mood Assessment and Plan - Patient Problems (1) Small bowel obstruction Current Visit: Yes Status: Acute Priority: High Onset Date: 07/04/17 Comment: It is unclear whether he has a postoperative ileus or if he has re- obstructed. He had a knuckle of bowel cut off by an adhesive band. The bowel looked viable at the time of surgery. Contents were going past it. It is possible at that area was just ischemic enough that it is compromised. The bowel was run from the ligament of Treitz to the cecum and it was the only area of abnormality. The colon was filled with dried stool. He has passed that. I have ordered a Gastrografin challenge. I discussed everything with the patient and his . I also discussed it with Dr. Sellers. If the contrast is not in the colon by tomorrow I think he will need exploration. We will insert a Joshi catheter, check a.m. labs, check an x-ray in the morning, stop his Toradol, and stop his heparin in preparation for possible surgery tomorrow. The urinalysis that hasn't been done yet will be sent once the Joshi catheter is inserted. Code(s): K56.69 - Other intestinal obstruction
--- NOTE | 2017-07-11 11:55 | OT PM DAY ---
Diagnosis : Weakness PM - Occupational Therapy S: The patient was alert and he was on task for the first five minutes. After that the patient became confused about his whereabouts and the task at hand. The patient also stated he needed to use the restroom but after a little bit he forgot about this task. O: The patient was sitting edge of bed upon the therapist's arrival. The patient completed a toilet transfer with mod assist and mod verbal cues as he displayed inability to stay on task. All toileting was completed with max assist as was donning and doffing of lower extremity garments. The patient transferred out of the bathroom with mod assist and verbal cues. The patient was left edge of bed with PT present. A: The patient transfers very slowly and continues to need verbal cues to complete and stay on task. He appears to be weak at this time. We will continue to monitor his overall function. P: Continue seeing patient BID during the week and one time per day over the weekend for upper extremity strengthening, ADLs, and overall functional mobility. ELIZA
[2017-07-11 12:16] LABS: BILIRUBIN,URINE NEGATIVE (NEG); CLARITY,URINE CLEAR (CLEAR); COLOR,URINE YELLOW (Y); GLUCOSE, URINE (UA) NEGATIVE (NEG); NITRATE,URINE NEGATIVE (NEG); OCCULT BLOOD,URINE Trace-intact (NEG); PROTEIN,URINE 30 mg/dl (NEG)
[2017-07-11 14:21] LABS: RBC,URINE 0 /hpf; SQUAMOUS EPITHELIAL CELL,UR RARE; URINE SAMPLE TYPE CLEAN CATCH URINE; WBC,URINE 0-3
[2017-07-11 14:22] LABS: URINE CASTS RARE
[2017-07-11] MEDS: HYDROmorphone 2 MG/1 ML IVP PRN (15:13)
--- NOTE | 2017-07-11 15:47 | PT.PROG ---
Progress Note Progress Note: S. Patient stated that he is tired this morning however is feeling a little better overall. O. Patient was wheeled to the therapy gym where he performed seated exercises in the form of; long arc quads, marches, heel toe raises, ball squeezes, clamshells, resisted knee flexion all x 10 bilaterally, with 2# weights and red thera-band. Patient was returned to his room at nursing's request. Patient was left in chair with alarm and call light. A. Patient tolerated therapy fair, he was short on time and was unable to perform all exercises. Patient requires mod assist with transfers. Patient would continue to benefit from skilled therapy at this time. P. Continue POC.
--- NOTE | 2017-07-11 15:53 | PT.PROG ---
Progress Note Progress Note: S. Patient stated that he is feeling a little better this afternoon. O. Patient ambulated 20 feet in the burkett then back to the restroom where he was left with OT. A. Patient requires Mod-Max assist with ambulation and transfers. Patient continues to be weak and require frequent verbal cues to stay on task and ambulate safely. Patient would continue to benefit from skilled therapy at this time. P. Continue POC.
[2017-07-11] MEDS: CALCIUM IV SCH ×2 (17:28)
[2017-07-11] MEDS: AA DEXT IV SCH ×2 (17:28)
[2017-07-11] MEDS: MULTIVITAMIN IV SCH ×2 (17:28)
[2017-07-11] MEDS: LYTES IV SCH ×2 (17:28)
[2017-07-11] MEDS: Fat Emulsions Inj 20% 250 ML IV SCH (20:02)
[2017-07-12] MEDS: Metoclopramide Inj 10 MG/2 ML VIAL IVP SCH ×4 (03:00→21:56)
[2017-07-12 05:09] LABS: BASOPHILS # (AUTO) 0.05 10*3/UL; BASOPHILS % (AUTO) 0.6 % (0-1); EOSINOPHILS % (AUTO) 4.5 % (0-8); Hematocrit [HCT] 39.7 % (42.0-52.0); Hemoglobin [HGB] 12.7 g/dL (14.0-18.0); LYMPHOCYTES # (AUTO) 1.21 10*3/uL; MEAN CORPUSCULAR HEMOGLOBIN 29.5 PG (27-31); MEAN CORPUSCULAR VOLUME 92.3 FL (80-90); MEAN PLATELET VOLUME 10.3 FL (7.4-12.2); MONOCYTES # (AUTO) 1.08 10*3/UL (0.3-0.8); MONOCYTES % (AUTO) 12.2 % (5-15); NEUTROPHILS # (AUTO) 6.09 10*3/UL; NEUTROPHILS % (AUTO) 68.8 % (50-80)
[2017-07-12] MEDS: HYDROmorphone 2 MG/1 ML IVP PRN (05:21)
[2017-07-12 05:30] LABS: PLATELET MORPHOLOGY COMMENT NORMAL MORPHOLOGY (NORM); RBC MORPHOLOGY COMMENT NORMAL MORPHOLOGY (NORM); WBC MORPHOLOGY COMMENT NORMAL MORPHOLOGY (NORM)
[2017-07-12 05:34] LABS: BLOOD UREA NITROGEN 17 mg/dL (7-22); BUN/CREATININE RATIO 24.28 (6-20); SERUM ALBUMIN 3.7 g/dL (3.5-4.8)
[2017-07-12] MEDS: Pantoprazole Inj 40 MG in Normal Saline Flush 10 ML IVP SCH (08:15)
--- NOTE | 2017-07-12 08:54 | DI ---
GASTROGRAFIN SMALL BOWEL CHALLENGE, 07/11/2017 9:02 AM: Clinical History: Status post surgery for partial small bowel obstruction. Postoperative ileus. Previous Exam: None at this facility. 100 mL of full strength Gastrografin was injected into the nasogastric tube. The nasogastric tube was unclamped. A film was obtained at 2 hours postinjection of contrast and this shows loops of small odilia wel with a caliber of the small bowel that is of the upper limits of normal in the left upper quadran t. There are loops of small bowel in the pelvic region and right lower quadrant that are decompressed . At 3 hours, Gastrografin contrast is present throughout the transverse colon. A delayed KUB and upright film was obtained at 21 hours following administration of Gastrografin and it shows the Gastrografin is present throughout the entire colon. There are only a few gas-filled loo ps of small bowel in the left upper quadrant. Readin. The rapid transit of contrast through the small bowel indicates there is no small bowel obstructi on and that the dilatation of the small bowel is secondary to a mild ileus. 2. The followup films the next morning show no evidence of an obstruction or even of a significant i leus.
[2017-07-12] MEDS: NORMAL SALINE 10 ML SYRINGE FLUSH IV PRN ×2 (09:43→15:03)
--- NOTE | 2017-07-12 11:46 | PDOC(PROG) ---
Subjective Post Op Day: 7 Pain Management: IV Joshi Catheter: Yes Flatus: Yes Diet: NPO Ambulating: No Date and Time of Service: 07/12/2017 11:40 AM Interval History: His main complaint is of the NG tube. It is bothering his nose as well as the back of his throat. He reports he is not having any abdominal pain. He had multiple bowel movements after the Gastrografin challenge. He denies nausea or abdominal cramping. I explained the Gastrografin findings to the patient. Objective : Data - Labs CBC and BMP: 07/12/17 03:58 07/12/17 03:58 - Imaging Imaging Details: The Gastrografin challenge showed contrast into the colon by 3 hours. Films today show the contrast throughout the colon and into the rectum. There is minimally if any dilated small bowel. It is much improved. - Vital Signs Vital Signs and I&O: Vital Signs - Last Taken Temperature 98 F 07/12/17 09:11 Pulse Rate 71 07/12/17 09:11 Respiratory Rate 17 07/12/17 09:11 Blood Pressure 141/64 07/12/17 09:11 Pulse Ox 96 07/12/17 09:11 Intake and Output (24hr x 4 totals) 07/10/17 07/11/17 07/12/17 07/13/17 05:59 05:59 05:59 05:59 Intake Total 770 / 770 1979 / 1979 2832 / 2832 Output Total 1750 / 1750 1125 / 1125 1905 / 1905 260 / 260 Balance -980 / -980 855 / 855 927 / 927 -260 / -260 Objective : Exam - General General Appearance: No Acute Distress, Cooperative - Respiratory Respiratory Exam: Clear to Auscultation - Bilaterally, Breathing Non Labored - Cardiovascular Cardiovascular Exam: RRR, No Murmur - GI/Abdominal GI/Abdominal Exam: Non Distended, Soft, Hypoactive Bowel Sounds Additional GI/Abdominal Exam Details: The incision looks good. No signs of infection. The abdomen is soft. The left abdominal tenderness is markedly improved. He has much better bowel tones but not quite yet normal. - Neurological Neurological Exam: Alert - Psychiatric Psychiatric Exam: Normal Affect, Normal Mood Assessment and Plan - Patient Problems (1) Small bowel obstruction Current Visit: Yes Status: Acute Priority: High Onset Date: 07/04/17 Comment: Gastrografin challenge shows no obstruction. Films today show minimal if any ileus. We will discontinue the NG tube. We'll start him on small amounts of clear liquids but we'll go slow with his diet. We will resume subcutaneous heparin. I discussed all the above with the patient and with Dr. Sellers. We'll continue to follow. Consider swing bed in a day or 2. Joshi catheter per Dr. Sellers. Code(s): K56.69 - Other intestinal obstruction
--- NOTE | 2017-07-12 11:55 | PDOC(PROG) ---
Date and Time of Service: 07/12/2017 11:53 AM Interval History: Subjective Patient denying abdominal pain, no nausea, had 2-3 bowel movements according to him last night. Still passing gas. NG tube was already removed. Objective : Data - Labs CBC and BMP: 07/12/17 03:58 07/12/17 03:58 Objective : Exam - General General Appearance: No Acute Distress, Cooperative - Head Head Exam: Normal Inspection, Atraumatic - Eye Eye Exam: Normal Appearance - ENT ENT Exam: Normal Exam - Neck Neck Exam: Normal Inspection - Respiratory Respiratory Exam: Clear to Auscultation - Bilaterally - Cardiovascular Cardiovascular Exam: RRR - GI/Abdominal GI/Abdominal Exam: Normal Bowel Sounds, Non Tender, Non Distended, Soft Additional GI/Abdominal Exam Details: Wound looks clean - Rectal Rectal Exam: Deferred - External Exam: Deferred - Extremities Extremities Exam: Normal Inspection - Back Back Exam: Normal Inspection - Neurological Neurological Exam: Alert, CN II-XII Intact, No Facial Droop, Speech Intact / Clear - Psychiatric Psychiatric Exam: Normal Affect Assessment and Plan - Patient Problems (1) Small bowel obstruction Current Visit: Yes Status: Acute Priority: High Onset Date: 07/04/17 Comment: Seem to be improving, NG tube was removed already. He'll be started on clear liquid sips per Dr. Harper's recommendation this will be advanced very gradually. The x-ray that he had showed no evidence of obstruction or an ileus today. Code(s): K56.69 - Other intestinal obstruction (2) Delirium Current Visit: Yes Status: Acute Comment: This is resolved Code(s): R41.0 - Disorientation, unspecified (3) DVT prophylaxis Current Visit: Yes Status: Acute Comment: He'll be started on heparin again (4) Ileus following gastrointestinal surgery Current Visit: Yes Status: Acute Comment: He is on Reglan continue he'll be started on clear liquids slowly this time Code(s): K91.3 - Postprocedural intestinal obstruction
[2017-07-12] MEDS: HEPARIN 5000 UNIT/1 ML SUBCUT SCH ×2 (13:15→21:57)
--- NOTE | 2017-07-12 14:56 | PT.PROG ---
Progress Note Progress Note: S: Nixon states that he is not feeling well today but agreed to come downstairs for a few exercises. O: Tx consisted of transfer from supine to EOB with mod A x 1, seated EOB x 5 minutes f/b sit to stand transfer with min A x 1 and amb x 10 feet to w/c with walker and CGA x 1 for safety. Pt was instructed in 2# weighted LAQ x 15, 2# weighted marches x 15, resisted hs curl x 10 B, 5 x sit to stand with CGA- min A x 1, balance grid with assist x 2. After exercises, pt was wheeled to room and transferred with Min A x [address] Harper came in right after pt got to the chair. A: Despite not feeling well at start of tx, pt was able to participate with exercises without increase in pain or nausea. Pt continues to require assistance with all transfers secondary to weakness and only able to ambulate short distances this AM. P: continue per POC.
--- NOTE | 2017-07-12 16:59 | PT.PROG ---
Progress Note Progress Note: S: Nixon reports that he is feeling better after getting his NG-tube removed and is ready for therapy this afternoon. O: Nixon performed STS transfer with mod assist and ambulated 5 ft with AD and mod assist to wheelchair. Nixon was wheeled the rest of the way to the treatment area. Nixon performed exercises in the form of: dynamic standing balance, seated LAQ and marching with 2lb ankle weight, HS curls and hip ext with TB, sup SAQ and SLR, all 10x ea. Nixon then ambulated 15ft with AD and mod assist before being wheeled back to his hospital room. Nixon was left in hospital bed with bed alarm on and call light within reach. A: Nixon tolerated therapy well today with minimal c/o pain. Nixon struggles with all transfers secondary to weakness and requires mod-max assist. Nixon struggles with endurance during activity and can only ambulate short distances before fatiguing. Nixon would continue to benefit from skilled therapy to address his strength deficits. P: Continue POC.
--- NOTE | 2017-07-12 17:37 | OT.PROG ---
Progress Note Progress Note: S: pt was in a good mood and willing to go down to therapy & did report that he was tired. O: pt was seen in therapy in the pm. after being transferred down by PT. He completed exercises today including wall pulleys 2k x10 in all planes, 4# ball into shoulder press, bicep curls 2# dumbbells x10, all completed with BUE's. pt was concerned about missing Dr Harper so he was transferred back to his room in w/c. A: pt continues to transfer slow and is confused and needs Vc's to stay on task. P: continue per plan of Care.
[2017-07-12] MEDS: CALCIUM IV SCH ×2 (17:40)
[2017-07-12] MEDS: LYTES IV SCH ×2 (17:40)
[2017-07-12] MEDS: AA DEXT IV SCH ×2 (17:40)
[2017-07-12] MEDS: MULTIVITAMIN IV SCH ×2 (17:40)
[2017-07-12] MEDS: ACETAMINOPHEN 500 MG TABLET PO PRN (20:02)
[2017-07-12] MEDS: Metoprolol TARTRATE Tab 25 MG TAB PO SCH (21:56)
[2017-07-12] MEDS: Fat Emulsions Inj 20% 250 ML IV SCH (21:57)
[2017-07-13] MEDS: Metoclopramide Inj 10 MG/2 ML VIAL IVP SCH ×4 (03:13→23:32)
[2017-07-13] MEDS: HEPARIN 5000 UNIT/1 ML SUBCUT SCH ×3 (03:13→21:52)
[2017-07-13] MEDS: Pantoprazole Inj 40 MG in Normal Saline Flush 10 ML IVP SCH (08:04)
[2017-07-13] MEDS: Metoprolol TARTRATE Tab 25 MG TAB PO SCH ×2 (08:22→21:48)
--- NOTE | 2017-07-13 11:40 | PDOC(PROG) ---
Date and Time of Service: 07/13/2017 11:34 AM Interval History: Subjective Patient feels better, denying abdominal pain, no nausea. He did have a bowel movement yesterday. Objective : Data - Labs CBC and BMP: 07/12/17 03:58 07/12/17 03:58 Objective : Exam - General General Appearance: No Acute Distress, Cooperative - Head Head Exam: Normal Inspection - Eye Eye Exam: Normal Appearance - ENT ENT Exam: Normal Exam - Neck Neck Exam: Normal Inspection - Respiratory Respiratory Exam: Clear to Auscultation - Bilaterally - Cardiovascular Cardiovascular Exam: RRR - GI/Abdominal GI/Abdominal Exam: Normal Bowel Sounds, Non Tender, Soft - Rectal Rectal Exam: Deferred - External Exam: Deferred - Extremities Extremities Exam: Normal Inspection - Neurological Neurological Exam: Alert, CN II-XII Intact, Speech Intact / Clear, Moves All Extremities Equally - Psychiatric Psychiatric Exam: Normal Affect Assessment and Plan - Patient Problems (1) Small bowel obstruction Current Visit: Yes Status: Acute Priority: High Onset Date: 07/04/17 Comment: Status post surgery. Seems to be improving. Dr. Harper puts him on sips of clear. And he seems to be tolerating that. Will speak with Dr. Harper and see if he is okay advancing his diet more. Code(s): K56.69 - Other intestinal obstruction (2) Delirium Current Visit: Yes Status: Acute Comment: That's resolved Code(s): R41.0 - Disorientation, unspecified (3) DVT prophylaxis Current Visit: Yes Status: Acute Comment: Continue heparin (4) Ileus following gastrointestinal surgery Current Visit: Yes Status: Acute Comment: Seem to be resolving. As I said we'll treat with Dr. Harper and see if we can advance his diet more today. Once his diet is more advanced and he can tolerate regular I think will DC the TPN. And then will think about maybe switching him to swing bed. Code(s): K91.3 - Postprocedural intestinal obstruction
--- NOTE | 2017-07-13 12:13 | PDOC(PROG) ---
Subjective Post Op Day: 8 Pain Management: IV Joshi Catheter: Yes Flatus: Yes Diet: Clear Liquids Ambulating: Yes Date and Time of Service: 07/13/2017 12 noon Interval History: The patient reports he is doing better every day. He is hungry. He is passing gas. He has not had a bowel movement during the day but there is one recorded overnight. He denies any significant abdominal pain. He has been going to physical therapy and he is ambulating a little at this time. Objective : Data - Labs CBC and BMP: 07/12/17 03:58 07/12/17 03:58 - Vital Signs Vital Signs and I&O: Vital Signs - Last Taken Temperature 98.4 F 07/13/17 07:31 Pulse Rate 71 07/13/17 07:31 Respiratory Rate 18 07/13/17 07:31 Blood Pressure 141/67 07/13/17 07:31 Pulse Ox 93 07/13/17 07:31 Intake and Output (24hr x 4 totals) 07/11/17 07/12/17 07/13/17 07/14/17 05:59 05:59 05:59 05:59 Intake Total 1979 / 1979 2832 / 2832 2271 / 2271 120 / 120 Output Total 1125 / 1125 1905 / 1905 3060 / 3060 105 / 105 Balance 855 / 855 927 / 927 -789 / -789 Objective : Exam - General General Appearance: No Acute Distress, Cooperative - Respiratory Respiratory Exam: Clear to Auscultation - Bilaterally, Breathing Non Labored - Cardiovascular Cardiovascular Exam: RRR, No Murmur - GI/Abdominal GI/Abdominal Exam: Non Distended, Soft, Diminished Bowel Sounds Additional GI/Abdominal Exam Details: Abdomen is soft. It is not distended. Minimal if any tenderness. Most of it is around the incision. Bowel tones are more normal. - Neurological Neurological Exam: Alert - Psychiatric Psychiatric Exam: Normal Affect, Normal Mood Assessment and Plan - Patient Problems (1) Small bowel obstruction Current Visit: Yes Status: Acute Priority: High Onset Date: 07/04/17 Comment: Postoperative ileus seems to be resolving. We'll advance him to full liquid diet. If he tolerates that we'll continue to advance his diet tomorrow. We'll plan to discontinue the gaye tomorrow. Code(s): K56.69 - Other intestinal obstruction
--- NOTE | 2017-07-13 14:52 | OT AM DAY ---
Diagnosis : Weakness AM - Occupational Therapy S: The patient reports he is ready to come down to therapy. O: The patient ambulated with mod assist and max verbal cues to stay focused. The patient was somewhat impulsive and did have some balance concerns with walking. Once we got out of his room he stated he needed to go back to the bathroom; it took several minutes in order to get back to the bathroom. While in the bathroom the patient performed a toilet transfer with max assist. The patient wanted to sit too soon before reaching the toilet. Once he sat on the toilet the patient attempted wiping self; he needed min assist in the end but was able to do most of it on his own. The patient had to sit and stand three different times as he thought he was done but then went back to the toilet. This was quite a process as the patient's cognitive processing skills are delayed. The patient needed a lot of verbal cues to attend to task at hand. The patient then ambulated to the chair which took several minutes. Once he started walking to the chair he stated he needed to have another bowel movement so we go the commode. The patient sat on the commode for several minutes; he had bouts of diarrhea--nursing was notified. The patient required min assist with toilet hygiene and then ambulated to the recliner chair. He transferred into the chair with max verbal cues and mod assist for balance. A: The patient requires increased time. His processing skills are delayed with his cognition. He needs constant verbal reminders to stand straight when ambulating and to stay focused for safety when performing functional transfers. The patient's was spoken to about possible 24-hour care or more assistance at home. She reports that it has been quite difficult to handle the patient at home. When asked if this is how he typically is at home, she states this is how he typically has been functioning and that he has had several falls and has a lot of difficulty with following directions. She states he jokes around with the girls at therapy, but that at home he can be quite demanding. Carmenza was also spoken to about talking to the about a 24-hour care type facility for the patient if he still has difficulties with his functional abilities and transfers. P: Continue seeing patient BID during the week and one time per day over the weekend for upper extremity strengthening, ADLs, and overall functional mobility. ELIZA
--- NOTE | 2017-07-13 15:12 | OT PM DAY ---
Diagnosis : Weakness PM - Occupational Therapy S: The patient reports no significant changes. O: Today the patient transferred from supine to sit with mod assist. While sitting edge of bed we worked on trunk balance while having the patient perform lateral movement back and forth approximately five inches from midline. He performed red theraband resisted biceps curls, rows, internal/external rotation , shoulder extension, and shoulder adduction. A: The patient still requires increased time and cues to continue with therapy. P: Continue seeing patient BID during the week and one time per day over the weekend for upper extremity strengthening, ADLs, and overall functional mobility. MTDD
[2017-07-13] MEDS ORDERED: HEPARIN 500 UNIT/5 ML SYRINGE FOR CENTRAL LINE IVP PRN (16:19)
[2017-07-13] MEDS ORDERED: LIDOCAINE 2% 20 MG/ML - 20 ML VIAL SUBCUT PRN (16:19)
[2017-07-13] MEDS ORDERED: Lidocaine 1% 10 MG/ML - 20 ML VIAL SUBCUT PRN (16:19)
--- NOTE | 2017-07-13 16:19 | PT.PROG ---
Progress Note Progress Note: S. Patient stated that he is very tired this morning. O. Patient was wheeled to the therapy gym where he performed seated exercises in the form of; long arc quads, heel toe raises, marches, ball squeezes, clamshells, resisted knee flexion all x 10 bilaterally with 3# and red thera- band. Patient was wheeled back up stairs where he ambulated 50 feet to his room and was left in his chair with alarm and call light. A. Patient tolerated therapy well, he continues to be very weak however is able to perform more exercises today compared to previous treatments. Patient continues to require mod assist with transfers and ambulation, Patient would continue to benefit from skilled therapy at this time. P. Continue POC.
--- NOTE | 2017-07-13 16:20 | OT PM DAY ---
Diagnosis : Weakness PM - Occupational Therapy S: The patient was in good spirits. He was somewhat confused today. O: The patient was seen in therapy after being brought down by PT. The patient completed upper extremity exercises with green theraband including biceps flexion and triceps extension x15 bilaterally. He completed rows and internal/external rotation x15 bilaterally. The patient then completed transfer back to his room. The patient needed constant verbal cues to stay on task. The patient was left supine in bed with call light within reach. Nursing was notified. A: The patient continues to be somewhat confused. He requires verbal cues at all times to stay on task. The patient may benefit from 24-hour care upon discharge. P: Continue seeing patient BID during the week and one time per day over the weekend for upper extremity strengthening, ADLs, and overall functional mobility. MTDD
--- NOTE | 2017-07-13 16:22 | PT.PROG ---
Progress Note Progress Note: S. Patient stated that he is feeling better this afternoon. O. Patient was wheeled to the therapy gym where he performed seated exercises in the form of; long arc quads, heel toe raises, marches, ball squeezes, clamshells, resisted knee flexion all x 10 bilaterally with 3# and red thera- band. Patient was wheeled back up stairs where he ambulated 70 feet to his room and was left in the restroom with call light and nursing was notified. A. Patient tolerated therapy well, he continues to be very weak, Patient requires frequent verbal cues during ambulation to attempt to stand up straight and look forward rather than at the floor. Patient continues to require mod assist with transfers and ambulation, Patient would continue to benefit from skilled therapy at this time. P. Continue POC.
--- NOTE | 2017-07-13 16:50 | DI ---
AP CHEST X-RAY, 07/13/2017 2:54 PM : Clinical History: Verification of PICC line catheter position. The patient pulled the catheter from h is arm. Previous Exam: 07/10/2017. The PICC line catheter now is in the distal subclavian vein at the junction with the right internal j ugular vein. Heart size is normal. Lungs are clear. Mediastinal structures are normal. There is a 10 mm lytic lesion in the proximal right humerus. Readin. Normal chest x-ray. 2. The PICC line catheter now is at the junction between the right subclavian vein and the right int ernal jugular vein. 3. There is a 10 mm lytic lesion in the proximal right humerus.
--- NOTE | 2017-07-13 17:41 | OT.PROG ---
Progress Note Progress Note: S: pt did not talk much today. He did report he was ready to just get therapy over with. O: pt was seen in his room after completing toilet transfer with nursing. He needed mod A vc's to complete transfer to w/c. He was then transferred to therapy and complete UE exercises with GTB in bicep flex, shoulder flex/ext rows and IROT. He then completed shoulder press with 2# ball with BUE's. Pt was turned over to PT at this point. A: pt needs vc's to stay on task and overall activity tolerance is low. Continue to strengthen LE/UE. Pt appears to be somewhat confused. He may benefit from a 24 care unit. P: continue Per POC.
--- NOTE | 2017-07-13 18:51 | DI ---
AP CHEST X-RAY, 07/13/2017 4:19 PM : Clinical History: Partial small bowel obstruction with postoperative ileus. The patient will require long-term hyperalimentation. The patient dislodged the previous PICC line and a new PICC line was ins erted. Verification of PICC line position. Previous Exam: 07/13/2017. The PICC line catheter is at the junction of the superior vena cava and right atrium. The catheter wa s withdrawn approximately 2 cm before securing it to the arm. Postprocedural orders were written. Reading: The PICC line catheter on this chest x-ray is at the junction between the superior vena cava and righ t atrium and the catheter was withdrawn approximately 2 cm.
[2017-07-13] MEDS: Pravastatin Tab 40 MG TAB PO SCH (21:48)
[2017-07-13] MEDS: Fat Emulsions Inj 20% 250 ML IV SCH (21:51)
[2017-07-13] MEDS: NORMAL SALINE 10 ML SYRINGE FLUSH IV PRN ×2 (21:51→23:32)
[2017-07-13] MEDS: LYTES IV SCH ×2 (23:35)
[2017-07-13] MEDS: CALCIUM IV SCH ×2 (23:35)
[2017-07-13] MEDS: AA DEXT IV SCH ×2 (23:35)
[2017-07-13] MEDS: MULTIVITAMIN IV SCH ×2 (23:35)
[2017-07-14] MEDS: Metoclopramide Inj 10 MG/2 ML VIAL IVP SCH ×4 (05:57→17:48)
[2017-07-14] MEDS: NORMAL SALINE 10 ML SYRINGE FLUSH IV PRN (06:00)
[2017-07-14] MEDS: HEPARIN 5000 UNIT/1 ML SUBCUT SCH ×3 (06:19→22:34)
[2017-07-14] MEDS: Pantoprazole Inj 40 MG in Normal Saline Flush 10 ML IVP SCH (09:17)
[2017-07-14] MEDS: Metoprolol TARTRATE Tab 25 MG TAB PO SCH ×2 (09:18→20:59)
--- NOTE | 2017-07-14 10:50 | PDOC(PROG) ---
Date and Time of Service: 07/14/2017 10:48 AM Interval History: Subjective Patient denying complaint there is no abdominal pain, no nausea. He is tolerating full liquid. Participating in physical therapy. Still weak though. Objective : Data - Labs CBC and BMP: 07/12/17 03:58 07/12/17 03:58 Objective : Exam - General General Appearance: No Acute Distress, Cooperative - Head Head Exam: Normal Inspection, Atraumatic - Eye Eye Exam: Normal Appearance - ENT ENT Exam: Normal Exam - Neck Neck Exam: Normal Inspection - Respiratory Respiratory Exam: Clear to Auscultation - Bilaterally - Cardiovascular Cardiovascular Exam: RRR - GI/Abdominal GI/Abdominal Exam: Normal Bowel Sounds, Non Tender, Non Distended, Soft - Rectal Rectal Exam: Deferred - External Exam: Deferred - Extremities Extremities Exam: Normal Inspection - Back Back Exam: Normal Inspection - Neurological Neurological Exam: Alert, CN II-XII Intact, Moves All Extremities Equally - Psychiatric Psychiatric Exam: Normal Affect Assessment and Plan - Patient Problems (1) Small bowel obstruction Current Visit: Yes Status: Acute Priority: High Onset Date: 07/04/17 Comment: Status post surgery. He had postoperative ileus seems to be resolved. He tolerated full liquid diet and will advance his diet. I think we'll continue with the Reglan IV for another day if he is still tolerating diet by tomorrow. I think we'll switch to by mouth for another day and then maybe DC in a day or 2 after that. Code(s): K56.69 - Other intestinal obstruction (2) Delirium Current Visit: Yes Status: Acute Comment: This is resolved Code(s): R41.0 - Disorientation, unspecified (3) DVT prophylaxis Current Visit: Yes Status: Acute Comment: Continue heparin (4) Ileus following gastrointestinal surgery Current Visit: Yes Status: Acute Comment: Seem to be resolved. We'll advance his diet to regular diet. Continue IV Reglan for another day and consider switching it to by mouth for another day or 2 and then DC after that probably likely switching him to swing bed on Sunday. Code(s): K91.3 - Postprocedural intestinal obstruction
--- NOTE | 2017-07-14 11:49 | PDOC(PROG) ---
Subjective Post Op Day: 9 Pain Management: PO Joshi Catheter: No Flatus: Yes Diet: full liquids Ambulating: Yes Date and Time of Service: 07/14/2017 11:30 AM Interval History: The patient reports he feels much better. His main complaint is his runny nose. His will bring in his allergy medication so we can get him on the right one. Patient denies abdominal pain or nausea. He is tolerating a full liquid diet. He is passing gas. He had multiple bowel movements since seen yesterday. He is working with occupational therapy and physical therapy. He is ambulating a bit. Objective : Data - Labs CBC and BMP: 07/12/17 03:58 07/12/17 03:58 - Vital Signs Vital Signs and I&O: Vital Signs - Last Taken Temperature 97.8 F 07/14/17 07:45 Pulse Rate 72 07/14/17 07:45 Respiratory Rate 18 07/14/17 07:45 Blood Pressure 127/53 07/14/17 07:45 Pulse Ox 95 07/14/17 07:45 Intake and Output (24hr x 4 totals) 07/12/17 07/13/17 07/14/17 07/15/17 05:59 05:59 05:59 05:59 Intake Total 2832 / 2832 2271 / 2271 675 / 675 697 / 697 Output Total 1905 / 1905 3060 / 3060 230 / 230 180 / 180 Balance 927 / 927 -789 / -789 445 / 445 517 / 517 Objective : Exam - General General Appearance: No Acute Distress, Cooperative - Respiratory Respiratory Exam: Clear to Auscultation - Bilaterally, Breathing Non Labored - Cardiovascular Cardiovascular Exam: RRR - GI/Abdominal GI/Abdominal Exam: Normal Bowel Sounds, Non Tender, Non Distended, Soft - Neurological Neurological Exam: Alert - Psychiatric Psychiatric Exam: Normal Affect, Normal Mood Assessment and Plan - Patient Problems (1) Small bowel obstruction Current Visit: Yes Status: Acute Priority: High Onset Date: 07/04/17 Comment: Status post lysis of adhesions. Developed a postoperative ileus which seems to be resolved. The bowels are functioning. He is tolerating full liquids. We'll advance him to a low residue diet with small meals. He could be advanced to a regular diet tomorrow. Probably okay to discontinue the lipids and TPN. I discussed this with the patient and Dr. Sellers. I will check on him on Sunday. The plan is to continue towards a swing bed for awhile until he is safe for his normal activities at home. From a surgical viewpoint he could be discharged when he's safe to be out of the hospital setting. He should follow-up with my office 1-2 weeks post discharge. Code(s): K56.69 - Other intestinal obstruction
--- NOTE | 2017-07-14 12:21 | PT.PROG ---
Progress Note Progress Note: S. Patient stated that he is feeling good today. O. Patient was wheeled to the therapy gym where he performed seated exercises in the form of; long arc quads, heel toe raises, marches, ball squeezes, clamshells, resisted knee flexion all x 10 bilaterally with 3# and red thera- band, all wall pulleys with 2kg x 15 bilaterally. Patient was wheeled back up to his room where he was left in his chair with alarm and call light. A. Patient tolerated therapy well, he continues to be very weak, Patient requires frequent verbal cues during therapy to stay on task and complete all exercises. Patient would continue to benefit from skilled therapy at this time. P. Continue POC.
[2017-07-14] MEDS: HYDROmorphone 2 MG/1 ML IVP PRN (15:41)
[2017-07-14] MEDS: LYTES IV SCH ×2 (16:34)
[2017-07-14] MEDS: CALCIUM IV SCH ×2 (16:34)
[2017-07-14] MEDS: MULTIVITAMIN IV SCH ×2 (16:34)
[2017-07-14] MEDS: AA DEXT IV SCH ×2 (16:34)
[2017-07-14] MEDS: Pravastatin Tab 40 MG TAB PO SCH (20:55)
[2017-07-14] MEDS: Fat Emulsions Inj 20% 250 ML IV SCH (21:12)
[2017-07-14] MEDS: ACETAMINOPHEN 500 MG TABLET PO PRN (22:33)
[2017-07-15] MEDS: NORMAL SALINE 10 ML SYRINGE FLUSH IV PRN ×2 (00:30→06:01)
[2017-07-15] MEDS: Metoclopramide Inj 10 MG/2 ML VIAL IVP SCH ×2 (00:30→06:01)
[2017-07-15] MEDS: ACETAMINOPHEN 500 MG TABLET PO PRN (04:00)
[2017-07-15] MEDS: HEPARIN 5000 UNIT/1 ML SUBCUT SCH ×3 (05:09→20:50)
[2017-07-15] MEDS: PANTOPRAZOLE 40 MG TABLET PO SCH (07:48)
[2017-07-15] MEDS: Metoprolol TARTRATE Tab 25 MG TAB PO SCH ×2 (08:59→21:35)
--- NOTE | 2017-07-15 09:58 | DI ---
REPLACEMENT OF PRE-EXISTING PICC LINE, 07/13/2017 4:19 PM: Clinical History: Postoperative ileus. The patient will require long-term hyperalimentation. The adan ent pulled the PICC line partially away from its original position. This procedure is being performed to replace the pre-existing PICC line. Technique: A "time out" session was performed to verify the patient's name and date of prior to obtaining informed signed consent prior for this procedure. The left arm and the entire catheter out side of the arm was prepped with Betadine and ChloraPrep with Tint. The catheter was then withdrawn a n additional 10 cm and that newly exposed portion was also prepped with Betadine and a different set of ChloraPrep swabs. The original venipuncture site was additionally scrubbed with alcohol and then r eprepped a third time with Betadine and ChloraPrep. A new introducer sheath was inserted over the pre -existing catheter without difficulty. The catheter was then withdrawn and a new 5 Czech double lume n Bard Power Picc Solo PICC catheter was inserted without difficulty. The tip position was initially identified with an AP portable chest x-ray and then adjusted as necessary. The standard dry sterile d ressing kit was used to secure the catheter. The patient tolerated the procedure well and was dischar ge in stable condition. Standard orders for wound care and dressing changes were written. Career Resource Technician: Matheus Dockery MD Smocker: None. Complications/Medications: None. Reading: PICC line replacement as above.
--- NOTE | 2017-07-15 11:27 | PDOC(PROG) ---
Date and Time of Service: 07/15/2017 11:25 AM Interval History: Subjective Patient denying complaint. No significant abdominal pain. He seems to be tolerating diet. Objective : Data - Labs CBC and BMP: 07/12/17 03:58 07/12/17 03:58 Objective : Exam - General General Appearance: No Acute Distress, Cooperative - Head Head Exam: Normal Inspection - Eye Eye Exam: Normal Appearance - ENT ENT Exam: Normal Exam - Neck Neck Exam: Normal Inspection - Respiratory Respiratory Exam: Clear to Auscultation - Bilaterally - Cardiovascular Cardiovascular Exam: RRR - GI/Abdominal GI/Abdominal Exam: Normal Bowel Sounds, Non Tender, Non Distended, Soft Additional GI/Abdominal Exam Details: Wound seemed to be healing well - Rectal Rectal Exam: Deferred - External Exam: Deferred - Extremities Extremities Exam: Normal Inspection - Back Back Exam: Normal Inspection - Neurological Neurological Exam: Alert, CN II-XII Intact, Speech Intact / Clear Additional Neurological Exam Details: Still generally weak but nonfocal - Psychiatric Psychiatric Exam: Normal Affect - Integumentary Integumentary Exam: Normal Color Assessment and Plan - Patient Problems (1) Small bowel obstruction Current Visit: Yes Status: Acute Priority: High Onset Date: 07/04/17 Comment: Status post surgery this is resolved. Code(s): K56.69 - Other intestinal obstruction (2) Delirium Current Visit: Yes Status: Acute Comment: Resolved Code(s): R41.0 - Disorientation, unspecified (3) DVT prophylaxis Current Visit: Yes Status: Acute Comment: He is on heparin (4) Ileus following gastrointestinal surgery Current Visit: Yes Status: Acute Comment: This is resolved. I think we can advance his diet to regular diet. Will switch the Reglan to by mouth 3 times a day before meals for another 2 days and I think will stop it Code(s): K91.3 - Postprocedural intestinal obstruction
--- NOTE | 2017-07-15 11:38 | OT.PROG ---
Progress Note Progress Note: S: pt stated he thinks he is doing better. His reports that she had a walker in the car. O: pt was seen in his room and transferred to w/c with cues and CGA for safety apprx 4-5 ft. Pt was transferred to therapy where he completed exercises to increase UE and LE strength to assist with functional transfers. He completed UE exercises with RTB in rows, bicep flex, shoulder ext/flex, IROT/EROT, all x15 with BUe's. LE exercises completed with marches, LAQ, ankle pumps, heal raises all x15. He then transferred entire way back to his room, approx 150 ft with FFW. He was left upright in chair with call light within reach and alarm on. A: pt may continue to benefit from therapy to increase his overall ability to complete transfers and strengthen LE's. P: continue per Plan Of Care.
[2017-07-15] MEDS: Metoclopramide Tab 10 MG TAB PO SCH (15:58)
[2017-07-15] MEDS: Pravastatin Tab 40 MG TAB PO SCH (21:35)
[2017-07-16] MEDS: ACETAMINOPHEN 500 MG TABLET PO PRN (01:48)
[2017-07-16] MEDS: HEPARIN 5000 UNIT/1 ML SUBCUT SCH ×2 (04:55→14:18)
[2017-07-16] MEDS: Metoclopramide Tab 10 MG TAB PO SCH ×3 (08:11→17:44)
[2017-07-16] MEDS: PANTOPRAZOLE 40 MG TABLET PO SCH (08:11)
--- NOTE | 2017-07-16 08:13 | PDOC(PROG) ---
Date and Time of Service: 07/16/2017 8:11 AM Interval History: Subjective Patient is denying abdominal pain. No shortness of breath. Didn't have breakfast yet. Though he said he didn't have diarrhea the nursing staff said that he did have diarrhea yesterday but not today. Objective : Data - Labs CBC and BMP: 07/12/17 03:58 07/12/17 03:58 Objective : Exam - General General Appearance: No Acute Distress, Cooperative - Head Head Exam: Normal Inspection - Eye Eye Exam: Normal Appearance - ENT ENT Exam: Normal Exam - Neck Neck Exam: Normal Inspection - Respiratory Respiratory Exam: Clear to Auscultation - Bilaterally - Cardiovascular Cardiovascular Exam: RRR - GI/Abdominal GI/Abdominal Exam: Normal Bowel Sounds, Non Tender, Non Distended, Soft Additional GI/Abdominal Exam Details: Wound looks clean - External Exam: Deferred - Extremities Extremities Exam: Normal Inspection - Back Back Exam: Normal Inspection - Neurological Neurological Exam: Alert, CN II-XII Intact, Moves All Extremities Equally - Psychiatric Psychiatric Exam: Normal Affect Assessment and Plan - Patient Problems (1) Small bowel obstruction Current Visit: Yes Status: Acute Priority: High Onset Date: 07/04/17 Comment: He is status post surgery. He did have a postoperative ileus and that' s resolved. I think we'll cut back on the Reglan to 5 mg 3 times a day may be will DC it tomorrow or the day after. We'll see whether we can switch him to swing bed today. Code(s): K56.69 - Other intestinal obstruction (2) Delirium Current Visit: Yes Status: Acute Comment: That's resolved. 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 Code(s): R41.0 - Disorientation, unspecified (3) DVT prophylaxis Current Visit: Yes Status: Acute Comment: He is on heparin (4) Ileus following gastrointestinal surgery Current Visit: Yes Status: Acute Comment: That's resolved. As I said we'll cut back on the Reglan 5 mg pre meals consider stopping it tomorrow or the day after. Code(s): K91.3 - Postprocedural intestinal obstruction
[2017-07-16] MEDS: Metoprolol TARTRATE Tab 25 MG TAB PO SCH (08:35)
[2017-07-16] MEDS ORDERED: Bacteriostatic NaCl Inj 30ml Vial ONE (10:47)
[2017-07-16] MEDS ORDERED: Sodium Chloride 0.9% vial 10 ML ONE (10:47)
[2017-07-16] MEDS ORDERED: BUPivacaine Liposome/PF (Exparel) Inj 20ml vial INFIL ONE (10:48)
--- NOTE | 2017-07-16 11:25 | OT AM DAY ---
Diagnosis : Weakness AM - Occupational Therapy S: The patient reports he is feeling better today. He got his catheter out today as well as his NG tube. O: Today the patient was able to transfer from sit to stand with min assist. He transferred to the wheelchair with min assist and verbal cues to continue to stay focused on task at hand. The patient was wheeled down to therapy and he completed upper extremity strengthening activities including wall pulleys with 2.5 kilograms for shoulder extension, rows, biceps curls, and internal/external rotation followed by biceps curls with a two pound medicine ball x1 minute, diagonal patterns x1 minute, and shoulder flexion x30 seconds. The patient performed power web for hand strength with bilateral hands followed by wrist pronation/supination with three pounds x1 minute. A: The patient was more alert today and he participated well. P: Continue seeing patient BID during the week and one time per day over the weekend for upper extremity strengthening, ADLs, and overall functional mobility. ELIZA
--- NOTE | 2017-07-16 12:20 | OT.PROG ---
Progress Note Progress Note: S: pt stated that he had finished his breakfast and needed to go to restroom. He was accompanied by his . O: pt was seen in his room in the a.m. He completed functional transfer to RR needing Min A cues. He doffed LE garments Ind for toileting and donned them needing a Vc to do so Ind. He then transferred back out to chair to complete ADL's. He needed Min A with UE dressing and MOd A LE dressing. He then transferred entire way to therapy, approx 175 ft with no breaks. He then completed x10 sit stands with Ind and CGA for safety. PT took over tx at this point. A: pt is still mildly confused as still needs simple cues to stay on tasks, like to continue taking steps/walking. He may benefit from SB and eventually 24 hr care assistance. P: continue per POC.
--- NOTE | 2017-07-16 12:40 | PDOC(PROG) ---
Subjective Post Op Day: 11 Pain Management: none Joshi Catheter: No Flatus: Yes Diet: Regular Ambulating: Yes Date and Time of Service: 07/16/2017 12:30 PM Interval History: Doing very well. Tolerating a regular diet. No nausea or vomiting. Has had multiple bowel movements. None this morning. He is passing gas. He denies abdominal pain or cramps. He is progressing with physical therapy. Plan is to move him to a swing bed today. Surgically he is stable. Objective : Data - Labs CBC and BMP: 07/12/17 03:58 07/12/17 03:58 - Vital Signs Vital Signs and I&O: Vital Signs - Last Taken Temperature 98.4 F 07/16/17 12:00 Pulse Rate 72 07/16/17 12:00 Respiratory Rate 20 07/16/17 12:00 Blood Pressure 132/62 07/16/17 12:00 Pulse Ox 94 07/16/17 12:00 Intake and Output (24hr x 4 totals) 07/14/17 07/15/17 07/16/17 07/17/17 05:59 05:59 05:59 05:59 Intake Total 675 / 675 4235 / 4235 2290 / 2290 120 / 120 Output Total 230 / 230 1005 / 1005 1260 / 1260 200 / 200 Balance 445 / 445 3230 / 3230 1030 / 1030 -80 / -80 Objective : Exam - General General Appearance: No Acute Distress - Respiratory Respiratory Exam: Clear to Auscultation - Bilaterally, Breathing Non Labored - Cardiovascular Cardiovascular Exam: RRR, No Murmur - GI/Abdominal GI/Abdominal Exam: Normal Bowel Sounds, Non Tender, Non Distended, Soft Additional GI/Abdominal Exam Details: The incision looks good. No signs of wound infection. Abdominal exam is benign. Assessment and Plan - Patient Problems (1) Small bowel obstruction Current Visit: Yes Status: Acute Priority: High Onset Date: 07/04/17 Comment: Surgically resolved small bowel obstruction. Ileus resolved. Tolerating a regular diet. Patient is surgically stable. We will sign off at this time. My office in 2 weeks would be appropriate. I discussed this with the patient and Dr. Sellers. Code(s): K56.69 - Other intestinal obstruction
[2017-07-16] MEDS ORDERED: Influenza 17-18 Vaccine (6mo+) Quad 60mcg/0.5ml PF IM ONE (13:45)
--- NOTE | 2017-07-16 16:22 | OT.PROG ---
Progress Note Progress Note: S: pt was a little argumentative today and defiant on certain safety tips. He reports that he thinks he is getting better. O: pt was seen in his room in the p.m. and just finished up toileting with nursing. He agreed to go ahead and go down for therapy. He completed transfer with FWW approx 150 with no breaks & minimal vc's to stay on task. When he arrived to therapy he completed 8 min on Nu step to assist with function of LE and activity tolerance. He then transferred to mat table completing UE exercises with GTB in rows, bicep flex, IRot, shoulder ext x20 with BUE's. He then completed PT at this time. OT then assisted him back to his room. He was left in chair with call light within reach and nursing notified. A: pt completed some very unsafe transitions today, at least 3 that could have caused a fall. He does not accept recommendations on safe transfers. His unsafe transfers were discussed with his . He may benefit from an assisted living environment or an apartment that is more elderly friendly. \ P: continue per POC. May go SB soon.
--- NOTE | 2017-07-16 16:58 | DCSUMMARY ---
Hospitalization Summary Admit Date: 07/05/17 Discharge Date: 07/16/17 Hospital Course: Discharge diagnoses 1. Small bowel obstruction secondary to adhesive band status post exploratory laparotomy with lysis of adhesive band 2. Postoperative ileus resolved 3. GERD 4. Hypercholesteremia 5. 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 History of cholecystectomy 8. Hypertension Hospital course This is an 81 years old male with medical history significant for history of GERD, hypercholesteremia and previous history of cholecystectomy and appendectomy who came into the hospital because of abdominal pain that was crampy and generalized he also had nausea and vomiting. CT of the abdomen showed small bowel obstruction. Patient was admitted treated with NG suction and fluid initially he was seen by surgery and he had surgery done with exploratory laparotomy and lysis of adhesion. His postoperative course was complicated by development of protracted postoperative ileus. It took a while for this to resolve. So he was initiated on TPN. Eventually this was resolved and he was advanced very slowly on his diet. We continued with physical therapy. I saw him later on during his hospital stay. He was put on Reglan for his postobstructive ileus. And he was also on TPN. He started physical therapy. The history that we got is most suggestive of NPH as he had weakness and falls and urinary incontinence and also issues with memory. Apparently he was seen by Dr. Hou and he was doing lumbar puncture which provided some relief but did not last long. But he also had spinal stenosis for which he had surgery done. Despite the surgery he continued to have some memory issues and incontinence. He continued with physical therapy here he remained weak we thought that he can be switched to swing bed to continue physical therapy. As I said he was on IV Reglan I switch him to oral Reglan and started decreasing the dosage I think this can be stopped in a day or 2 if he continued to make progress and continue tolerating diet. Laboratory Results 07/04/17 07/04/17 07/04/17 Range/Units 23:13 23:19 23:19 WBC 7.41 (4.8-10.8) 10^3/uL RBC 4.90 (4.70-6.10) 10^6/uL Hgb 14.8 (14.0-18.0) g/dL Hct 44.3 (42.0-52.0) % MCV 90.4 H (80-90) FL MCH 30.2 (27-31) PG MCHC 33.4 (33-37) g/dL RDW Std Deviation 44.3 (39-50) fL RDW Coeff of Fernando 13.5 (11.5-14.5) % Plt Count 308 (140-350) 10*3/uL MPV 10.3 (7.4-12.2) FL Immature Gran % (Auto) 0.3 (0-5) % Neut % (Auto) 56.9 (50-80) % Lymph % (Auto) 29.1 (10-50) % Cecil % (Auto) 8.8 (5-15) % Eos % (Auto) 4.2 (0-8) % Baso % (Auto) 0.7 (0-1) % Immature Gran # (Auto) 0.02 10*3/UL Neut # (Auto) 4.22 10*3/UL Lymph # (Auto) 2.16 10*3/uL Cecil # (Auto) 0.65 (0.3-0.8) 10*3/UL Eos # (Auto) 0.31 10*3/UL Baso # (Auto) 0.05 10*3/UL Neutrophils % (Manual) (50-80) % Band Neutrophils % (0-10) % Lymphocytes % (Manual) (10-50) % Monocytes % (Manual) (0-12) % Eosinophils % (Manual) (0-8) % Basophils % (Manual) Metamyelocytes % Myelocytes % Promyelocytes % Blast Cells WBC Morphology Comment Normal morphology (NORM) Plt Morphology Comment Normal morphology (NORM) RBC Morph Comment Normal morphology (NORM) Sodium 138 (135-145) meq/L Potassium 4.4 (3.8-5.2) meq/L Chloride 96 L (98-112) meq/L Carbon Dioxide 29 (23-33) meq/L Anion Gap 13 (5-20) BUN 21 (7-22) mg/dL Creatinine 0.9 (0.70-1.50) mg/dL BUN/Creatinine Ratio 23.33 H (6-20) Glucose 95 (78-110) mg/dL Calculated Osmolality 288.0 (267-292) mOsm/kg Lactic Acid (0.70-2.10) MMOL/L Calcium 10.8 H (8.7-10.7) mg/dL Phosphorus (2.4-4.3) mg/dl Magnesium (1.6-2.4) mg/dL Total Bilirubin 0.8 (0.3-1.2) mg/dL AST 37 (21-57) IU/L ALT 30 (21-72) IU/L Alkaline Phosphatase 74 (38-126) IU/L Total Protein 8.7 H (6.1-8.0) g/dL Albumin 4.7 (3.5-4.8) g/dL Globulin 4.0 (2.50-4.10) g/dL Albumin/Globulin Ratio 1.10 L (1.3-2.0) mg/g Amylase 82 (30-110) U/L Lipase 93 (23-300) IU/L Ur Collection Type Clean catch urine Urine Color Yellow (Y) Urine Clarity Clear (CLEAR) Urine pH 6.0 (5.0-8.5) Ur Specific Blanchard 1.010 (1.005-1.030) Urine Protein Negative (NEG) mg/dl Urine Glucose (UA) Negative (NEG) mg/dL Urine Ketones Negative (NEG) Urine Occult Blood Trace-intact H (NEG) Urine Nitrate Negative (NEG) Urine Bilirubin Negative (NEG) Urine Urobilinogen 0.2 (0.2) EU/dL Ur Leukocyte Esterase Negative (NEG) Urine RBC 1-3 (NONE) /hpf Urine WBC 1-3 (NONE) Ur Squamous Epith Cells Rare (NONE) Ur Renal Epithelial Cell None (NONE) Urine Crystals None Urine Bacteria Rare (NONE) Urine Casts None (NONE) Urine Mucus None (NONE) Urine Trichomonas None (NONE) Urine Yeast None (NONE) Ur Culture Indicated? Culture not set 07/05/17 07/05/17 07/05/17 Range/Units 02:11 09:31 09:31 WBC 13.01 H (4.8-10.8) 10^3/uL RBC 4.96 (4.70-6.10) 10^6/uL Hgb 14.8 (14.0-18.0) g/dL Hct 44.7 (42.0-52.0) % MCV 90.1 H (80-90) FL MCH 29.8 (27-31) PG MCHC 33.1 (33-37) g/dL RDW Std Deviation 43.7 (39-50) fL RDW Coeff of Fernando 13.5 (11.5-14.5) % Plt Count 302 (140-350) 10*3/uL MPV 9.3 (7.4-12.2) FL Immature Gran % (Auto) 0.1 (0-5) % Neut % (Auto) 93.8 H (50-80) % Lymph % (Auto) 3.2 L (10-50) % Cecil % (Auto) 2.9 L (5-15) % Eos % (Auto) 0 (0-8) % Baso % (Auto) 0 (0-1) % Immature Gran # (Auto) 0.01 10*3/UL Neut # (Auto) 12.20 10*3/UL Lymph # (Auto) 0.42 10*3/uL Cecil # (Auto) 0.38 (0.3-0.8) 10*3/UL Eos # (Auto) 0 10*3/UL Baso # (Auto) 0 10*3/UL Neutrophils % (Manual) (50-80) % Band Neutrophils % (0-10) % Lymphocytes % (Manual) (10-50) % Monocytes % (Manual) (0-12) % Eosinophils % (Manual) (0-8) % Basophils % (Manual) Metamyelocytes % Myelocytes % Promyelocytes % Blast Cells WBC Morphology Comment Normal morphology (NORM) Plt Morphology Comment Normal morphology (NORM) RBC Morph Comment Normal morphology (NORM) Sodium (135-145) meq/L Potassium (3.8-5.2) meq/L Chloride (98-112) meq/L Carbon Dioxide (23-33) meq/L Anion Gap (5-20) BUN (7-22) mg/dL Creatinine (0.70-1.50) mg/dL BUN/Creatinine Ratio (6-20) Glucose (78-110) mg/dL Calculated Osmolality (267-292) mOsm/kg Lactic Acid 1.3 (0.70-2.10) MMOL/L Calcium (8.7-10.7) mg/dL Phosphorus (2.4-4.3) mg/dl Magnesium (1.6-2.4) mg/dL Total Bilirubin (0.3-1.2) mg/dL AST (21-57) IU/L ALT (21-72) IU/L Alkaline Phosphatase (38-126) IU/L Total Protein (6.1-8.0) g/dL Albumin (3.5-4.8) g/dL Globulin (2.50-4.10) g/dL Albumin/Globulin Ratio (1.3-2.0) mg/g Amylase 70 (30-110) U/L Lipase (23-300) IU/L Ur Collection Type Urine Color (Y) Urine Clarity (CLEAR) Urine pH (5.0-8.5) Ur Specific Blanchard (1.005-1.030) Urine Protein (NEG) mg/dl Urine Glucose (UA) (NEG) mg/dL Urine Ketones (NEG) Urine Occult Blood (NEG) Urine Nitrate (NEG) Urine Bilirubin (NEG) Urine Urobilinogen (0.2) EU/dL Ur Leukocyte Esterase (NEG) Urine RBC (NONE) /hpf Urine WBC (NONE) Ur Squamous Epith Cells (NONE) Ur Renal Epithelial Cell (NONE) Urine Crystals Urine Bacteria (NONE) Urine Casts (NONE) Urine Mucus (NONE) Urine Trichomonas (NONE) Urine Yeast (NONE) Ur Culture Indicated? 07/05/17 07/05/17 07/06/17 Range/Units 09:31 09:31 05:50 WBC 10.13 (4.8-10.8) 10^3/uL RBC 4.11 L (4.70-6.10) 10^6/uL Hgb 12.4 L (14.0-18.0) g/dL Hct 37.8 L (42.0-52.0) % MCV 92.0 H (80-90) FL MCH 30.2 (27-31) PG MCHC 32.8 L (33-37) g/dL RDW Std Deviation 45.6 (39-50) fL RDW Coeff of Fernando 13.7 (11.5-14.5) % Plt Count 262 (140-350) 10*3/uL MPV 9.6 (7.4-12.2) FL Immature Gran % (Auto) 0.1 (0-5) % Neut % (Auto) 76.5 (50-80) % Lymph % (Auto) 12.4 (10-50) % Cecil % (Auto) 9.7 (5-15) % Eos % (Auto) 1.1 (0-8) % Baso % (Auto) 0.2 (0-1) % Immature Gran # (Auto) 0.01 10*3/UL Neut # (Auto) 7.75 10*3/UL Lymph # (Auto) 1.26 10*3/uL Cecil # (Auto) 0.98 H (0.3-0.8) 10*3/UL Eos # (Auto) 0.11 10*3/UL Baso # (Auto) 0.02 10*3/UL Neutrophils % (Manual) (50-80) % Band Neutrophils % (0-10) % Lymphocytes % (Manual) (10-50) % Monocytes % (Manual) (0-12) % Eosinophils % (Manual) (0-8) % Basophils % (Manual) Metamyelocytes % Myelocytes % Promyelocytes % Blast Cells WBC Morphology Comment Normal morphology (NORM) Plt Morphology Comment Normal morphology (NORM) RBC Morph Comment Normal morphology (NORM) Sodium 137 (135-145) meq/L Potassium 4.4 (3.8-5.2) meq/L Chloride 97 L (98-112) meq/L Carbon Dioxide 28 (23-33) meq/L Anion Gap 12 (5-20) BUN 18 (7-22) mg/dL Creatinine 0.8 (0.70-1.50) mg/dL BUN/Creatinine Ratio 22.50 H (6-20) Glucose 123 H (78-110) mg/dL Calculated Osmolality 286.0 (267-292) mOsm/kg Lactic Acid (0.70-2.10) MMOL/L Calcium 10.0 (8.7-10.7) mg/dL Phosphorus (2.4-4.3) mg/dl Magnesium (1.6-2.4) mg/dL Total Bilirubin 1.0 (0.3-1.2) mg/dL AST 35 (21-57) IU/L ALT 29 (21-72) IU/L Alkaline Phosphatase 76 (38-126) IU/L Total Protein 7.9 (6.1-8.0) g/dL Albumin 4.4 (3.5-4.8) g/dL Globulin 3.5 (2.50-4.10) g/dL Albumin/Globulin Ratio 1.20 L (1.3-2.0) mg/g Amylase (30-110) U/L Lipase 70 (23-300) IU/L Ur Collection Type Urine Color (Y) Urine Clarity (CLEAR) Urine pH (5.0-8.5) Ur Specific Blanchard (1.005-1.030) Urine Protein (NEG) mg/dl Urine Glucose (UA) (NEG) mg/dL Urine Ketones (NEG) Urine Occult Blood (NEG) Urine Nitrate (NEG) Urine Bilirubin (NEG) Urine Urobilinogen (0.2) EU/dL Ur Leukocyte Esterase (NEG) Urine RBC (NONE) /hpf Urine WBC (NONE) Ur Squamous Epith Cells (NONE) Ur Renal Epithelial Cell (NONE) Urine Crystals Urine Bacteria (NONE) Urine Casts (NONE) Urine Mucus (NONE) Urine Trichomonas (NONE) Urine Yeast (NONE) Ur Culture Indicated? 07/06/17 07/08/17 07/08/17 Range/Units 05:50 04:55 04:55 WBC 7.75 (4.8-10.8) 10^3/uL RBC 3.78 L (4.70-6.10) 10^6/uL Hgb 11.4 L (14.0-18.0) g/dL Hct 35.2 L (42.0-52.0) % MCV 93.1 H (80-90) FL MCH 30.2 (27-31) PG MCHC 32.4 L (33-37) g/dL RDW Std Deviation 44.1 (39-50) fL RDW Coeff of Fernando 13.3 (11.5-14.5) % Plt Count 243 (140-350) 10*3/uL MPV 10.0 (7.4-12.2) FL Immature Gran % (Auto) 0.1 (0-5) % Neut % (Auto) 68.9 (50-80) % Lymph % (Auto) 12.0 (10-50) % Cecil % (Auto) 13.8 (5-15) % Eos % (Auto) 4.8 (0-8) % Baso % (Auto) 0.4 (0-1) % Immature Gran # (Auto) 0.01 10*3/UL Neut # (Auto) 5.34 10*3/UL Lymph # (Auto) 0.93 10*3/uL Cecil # (Auto) 1.07 H (0.3-0.8) 10*3/UL Eos # (Auto) 0.37 10*3/UL Baso # (Auto) 0.03 10*3/UL Neutrophils % (Manual) (50-80) % Band Neutrophils % (0-10) % Lymphocytes % (Manual) (10-50) % Monocytes % (Manual) (0-12) % Eosinophils % (Manual) (0-8) % Basophils % (Manual) Metamyelocytes % Myelocytes % Promyelocytes % Blast Cells WBC Morphology Comment Normal morphology (NORM) Plt Morphology Comment Normal morphology (NORM) RBC Morph Comment Normal morphology (NORM) Sodium 137 138 (135-145) meq/L Potassium 4.3 4.1 (3.8-5.2) meq/L Chloride 102 103 (98-112) meq/L Carbon Dioxide 27 29 (23-33) meq/L Anion Gap 8 6 (5-20) BUN 17 11 (7-22) mg/dL Creatinine 0.8 0.7 (0.70-1.50) mg/dL BUN/Creatinine Ratio 21.25 H 15.71 (6-20) Glucose 108 98 (78-110) mg/dL Calculated Osmolality 286.0 284.0 (267-292) mOsm/kg Lactic Acid (0.70-2.10) MMOL/L Calcium 9.0 8.9 (8.7-10.7) mg/dL Phosphorus (2.4-4.3) mg/dl Magnesium 1.8 (1.6-2.4) mg/dL Total Bilirubin 1.0 0.7 (0.3-1.2) mg/dL AST 24 27 (21-57) IU/L ALT 29 26 (21-72) IU/L Alkaline Phosphatase 51 47 (38-126) IU/L Total Protein 5.6 L 5.7 L (6.1-8.0) g/dL Albumin 3.0 L 3.0 L (3.5-4.8) g/dL Globulin 2.6 2.7 (2.50-4.10) g/dL Albumin/Globulin Ratio 1.10 L 1.10 L (1.3-2.0) mg/g Amylase < 30 L (30-110) U/L Lipase 44 (23-300) IU/L Ur Collection Type Urine Color (Y) Urine Clarity (CLEAR) Urine pH (5.0-8.5) Ur Specific Blanchard (1.005-1.030) Urine Protein (NEG) mg/dl Urine Glucose (UA) (NEG) mg/dL Urine Ketones (NEG) Urine Occult Blood (NEG) Urine Nitrate (NEG) Urine Bilirubin (NEG) Urine Urobilinogen (0.2) EU/dL Ur Leukocyte Esterase (NEG) Urine RBC (NONE) /hpf Urine WBC (NONE) Ur Squamous Epith Cells (NONE) Ur Renal Epithelial Cell (NONE) Urine Crystals Urine Bacteria (NONE) Urine Casts (NONE) Urine Mucus (NONE) Urine Trichomonas (NONE) Urine Yeast (NONE) Ur Culture Indicated? 07/09/17 07/10/17 07/10/17 Range/Units 04:00 05:22 08:15 WBC 10.05 (4.8-10.8) 10^3/uL RBC 4.34 L (4.70-6.10) 10^6/uL Hgb 12.8 L (14.0-18.0) g/dL Hct 40.1 L (42.0-52.0) % MCV 92.4 H (80-90) FL MCH 29.5 (27-31) PG MCHC 31.9 L (33-37) g/dL RDW Std Deviation 44.1 (39-50) fL RDW Coeff of Fernando 13.2 (11.5-14.5) % Plt Count 319 (140-350) 10*3/uL MPV 10.4 (7.4-12.2) FL Immature Gran % (Auto) (0-5) % Neut % (Auto) (50-80) % Lymph % (Auto) (10-50) % Cecil % (Auto) (5-15) % Eos % (Auto) (0-8) % Baso % (Auto) (0-1) % Immature Gran # (Auto) 10*3/UL Neut # (Auto) 10*3/UL Lymph # (Auto) 10*3/uL Cecil # (Auto) (0.3-0.8) 10*3/UL Eos # (Auto) 10*3/UL Baso # (Auto) 10*3/UL Neutrophils % (Manual) 70 (50-80) % Band Neutrophils % 4 (0-10) % Lymphocytes % (Manual) 16 (10-50) % Monocytes % (Manual) 6 (0-12) % Eosinophils % (Manual) 4 (0-8) % Basophils % (Manual) Not Reportable Metamyelocytes % Not Reportable Myelocytes % Not Reportable Promyelocytes % Not Reportable Blast Cells Not Reportable WBC Morphology Comment Normal morphology (NORM) Plt Morphology Comment Normal morphology (NORM) RBC Morph Comment Normal morphology (NORM) Sodium 139 138 (135-145) meq/L Potassium 4.1 4.0 (3.8-5.2) meq/L Chloride 103 102 (98-112) meq/L Carbon Dioxide 29 26 (23-33) meq/L Anion Gap 7 10 (5-20) BUN 8 16 (7-22) mg/dL Creatinine 0.7 0.8 (0.70-1.50) mg/dL BUN/Creatinine Ratio 11.42 20.00 (6-20) Glucose 96 84 (78-110) mg/dL Calculated Osmolality 285.0 285.0 (267-292) mOsm/kg Lactic Acid 0.8 (0.70-2.10) MMOL/L Calcium 8.9 8.7 (8.7-10.7) mg/dL Phosphorus (2.4-4.3) mg/dl Magnesium 2.2 2.1 (1.6-2.4) mg/dL Total Bilirubin 0.7 1.0 (0.3-1.2) mg/dL AST 29 24 (21-57) IU/L ALT 30 29 (21-72) IU/L Alkaline Phosphatase 53 62 (38-126) IU/L Total Protein 5.8 L 6.0 L (6.1-8.0) g/dL Albumin 3.1 L 3.3 L (3.5-4.8) g/dL Globulin 2.7 2.7 (2.50-4.10) g/dL Albumin/Globulin Ratio 1.10 L 1.20 L (1.3-2.0) mg/g Amylase (30-110) U/L Lipase (23-300) IU/L Ur Collection Type Urine Color (Y) Urine Clarity (CLEAR) Urine pH (5.0-8.5) Ur Specific Blanchard (1.005-1.030) Urine Protein (NEG) mg/dl Urine Glucose (UA) (NEG) mg/dL Urine Ketones (NEG) Urine Occult Blood (NEG) Urine Nitrate (NEG) Urine Bilirubin (NEG) Urine Urobilinogen (0.2) EU/dL Ur Leukocyte Esterase (NEG) Urine RBC (NONE) /hpf Urine WBC (NONE) Ur Squamous Epith Cells (NONE) Ur Renal Epithelial Cell (NONE) Urine Crystals Urine Bacteria (NONE) Urine Casts (NONE) Urine Mucus (NONE) Urine Trichomonas (NONE) Urine Yeast (NONE) Ur Culture Indicated? 07/11/17 07/11/17 07/12/17 Range/Units 03:55 12:01 03:58 WBC 8.85 (4.8-10.8) 10^3/uL RBC 4.30 L (4.70-6.10) 10^6/uL Hgb 12.7 L (14.0-18.0) g/dL Hct 39.7 L (42.0-52.0) % MCV 92.3 H (80-90) FL MCH 29.5 (27-31) PG MCHC 32.0 L (33-37) g/dL RDW Std Deviation 43.9 (39-50) fL RDW Coeff of Fernando 13.2 (11.5-14.5) % Plt Count 346 (140-350) 10*3/uL MPV 10.3 (7.4-12.2) FL Immature Gran % (Auto) 0.2 (0-5) % Neut % (Auto) 68.8 (50-80) % Lymph % (Auto) 13.7 (10-50) % Cecil % (Auto) 12.2 (5-15) % Eos % (Auto) 4.5 (0-8) % Baso % (Auto) 0.6 (0-1) % Immature Gran # (Auto) 0.02 10*3/UL Neut # (Auto) 6.09 10*3/UL Lymph # (Auto) 1.21 10*3/uL Cecil # (Auto) 1.08 H (0.3-0.8) 10*3/UL Eos # (Auto) 0.40 10*3/UL Baso # (Auto) 0.05 10*3/UL Neutrophils % (Manual) (50-80) % Band Neutrophils % (0-10) % Lymphocytes % (Manual) (10-50) % Monocytes % (Manual) (0-12) % Eosinophils % (Manual) (0-8) % Basophils % (Manual) Metamyelocytes % Myelocytes % Promyelocytes % Blast Cells WBC Morphology Comment Normal morphology (NORM) Plt Morphology Comment Normal morphology (NORM) RBC Morph Comment Normal morphology (NORM) Sodium 139 (135-145) meq/L Potassium 3.6 L (3.8-5.2) meq/L Chloride 99 (98-112) meq/L Carbon Dioxide 30 (23-33) meq/L Anion Gap 10 (5-20) BUN 15 (7-22) mg/dL Creatinine 0.8 (0.70-1.50) mg/dL BUN/Creatinine Ratio 18.75 (6-20) Glucose 125 H (78-110) mg/dL Calculated Osmolality 289.0 (267-292) mOsm/kg Lactic Acid (0.70-2.10) MMOL/L Calcium 8.6 L (8.7-10.7) mg/dL Phosphorus 2.7 (2.4-4.3) mg/dl Magnesium 2.2 (1.6-2.4) mg/dL Total Bilirubin 0.7 (0.3-1.2) mg/dL AST 33 (21-57) IU/L ALT 26 (21-72) IU/L Alkaline Phosphatase 62 (38-126) IU/L Total Protein 6.0 L (6.1-8.0) g/dL Albumin 3.2 L (3.5-4.8) g/dL Globulin 2.8 (2.50-4.10) g/dL Albumin/Globulin Ratio 1.10 L (1.3-2.0) mg/g Amylase (30-110) U/L Lipase (23-300) IU/L Ur Collection Type Clean catch urine Urine Color Yellow (Y) Urine Clarity Clear (CLEAR) Urine pH 7.0 (5.0-8.5) Ur Specific Blanchard 1.015 (1.005-1.030) Urine Protein 30 A (NEG) mg/dl Urine Glucose (UA) Negative (NEG) mg/dL Urine Ketones Negative (NEG) Urine Occult Blood Trace-intact H (NEG) Urine Nitrate Negative (NEG) Urine Bilirubin Negative (NEG) Urine Urobilinogen 1.0 (0.2) EU/dL Ur Leukocyte Esterase Negative (NEG) Urine RBC 0 (NONE) /hpf Urine WBC 0-3 (NONE) Ur Squamous Epith Cells Rare (NONE) Ur Renal Epithelial Cell None (NONE) Urine Crystals None Urine Bacteria None (NONE) Urine Casts Rare (NONE) Urine Mucus Rare (NONE) Urine Trichomonas None (NONE) Urine Yeast None (NONE) Ur Culture Indicated? 07/12/17 Range/Units 03:58 WBC (4.8-10.8) 10^3/uL RBC (4.70-6.10) 10^6/uL Hgb (14.0-18.0) g/dL Hct (42.0-52.0) % MCV (80-90) FL MCH (27-31) PG MCHC (33-37) g/dL RDW Std Deviation (39-50) fL RDW Coeff of Fernando (11.5-14.5) % Plt Count (140-350) 10*3/uL MPV (7.4-12.2) FL Immature Gran % (Auto) (0-5) % Neut % (Auto) (50-80) % Lymph % (Auto) (10-50) % Cecil % (Auto) (5-15) % Eos % (Auto) (0-8) % Baso % (Auto) (0-1) % Immature Gran # (Auto) 10*3/UL Neut # (Auto) 10*3/UL Lymph # (Auto) 10*3/uL Cecil # (Auto) (0.3-0.8) 10*3/UL Eos # (Auto) 10*3/UL Baso # (Auto) 10*3/UL Neutrophils % (Manual) (50-80) % Band Neutrophils % (0-10) % Lymphocytes % (Manual) (10-50) % Monocytes % (Manual) (0-12) % Eosinophils % (Manual) (0-8) % Basophils % (Manual) Metamyelocytes % Myelocytes % Promyelocytes % Blast Cells WBC Morphology Comment (NORM) Plt Morphology Comment (NORM) RBC Morph Comment (NORM) Sodium 139 (135-145) meq/L Potassium 3.8 (3.8-5.2) meq/L Chloride 99 (98-112) meq/L Carbon Dioxide 29 (23-33) meq/L Anion Gap 11 (5-20) BUN 17 (7-22) mg/dL Creatinine 0.7 (0.70-1.50) mg/dL BUN/Creatinine Ratio 24.28 H (6-20) Glucose 103 (78-110) mg/dL Calculated Osmolality 289.0 (267-292) mOsm/kg Lactic Acid (0.70-2.10) MMOL/L Calcium 9.0 (8.7-10.7) mg/dL Phosphorus (2.4-4.3) mg/dl Magnesium (1.6-2.4) mg/dL Total Bilirubin 0.5 (0.3-1.2) mg/dL AST 46 (21-57) IU/L ALT 32 (21-72) IU/L Alkaline Phosphatase 67 (38-126) IU/L Total Protein 6.7 (6.1-8.0) g/dL Albumin 3.7 (3.5-4.8) g/dL Globulin 3.0 (2.50-4.10) g/dL Albumin/Globulin Ratio 1.20 L (1.3-2.0) mg/g Amylase (30-110) U/L Lipase (23-300) IU/L Ur Collection Type Urine Color (Y) Urine Clarity (CLEAR) Urine pH (5.0-8.5) Ur Specific Blanchard (1.005-1.030) Urine Protein (NEG) mg/dl Urine Glucose (UA) (NEG) mg/dL Urine Ketones (NEG) Urine Occult Blood (NEG) Urine Nitrate (NEG) Urine Bilirubin (NEG) Urine Urobilinogen (0.2) EU/dL Ur Leukocyte Esterase (NEG) Urine RBC (NONE) /hpf Urine WBC (NONE) Ur Squamous Epith Cells (NONE) Ur Renal Epithelial Cell (NONE) Urine Crystals Urine Bacteria (NONE) Urine Casts (NONE) Urine Mucus (NONE) Urine Trichomonas (NONE) Urine Yeast (NONE) Ur Culture Indicated? Discharge instruction Diet regular Activity as tolerated Medications see the medical record Follow-up patient status will be switched to swing bed status and continue physical therapy here. Exam - Vitals Vital Signs: Vital Signs Temperature 98.4 F Temperature Source Oral Pulse Rate [Apical] 68 Pulse Rate [Pulse Oximeter] 72 Pulse Rate 81 Respiratory Rate 20 Blood Pressure [Right Arm] 132/62 Blood Pressure [Left Arm] 126/55 Blood Pressure 149/96 Pulse Ox 94 Oxygen Flow Rate 1 Oxygen Delivery Method Room Air Height 5 ft 9 in Weight 192 lb 3.2 oz Patient Problems - Patient Problem List (1) Small bowel obstruction Current Visit: Yes Status: Acute Onset Date: 07/04/17 Priority: High Comment: The obstruction was surgically corrected. He has an ileus at the present time. Check an x-ray tomorrow and consider a Gastrografin challenge. Discussed with all parties involved. Code(s): K56.69 - Other intestinal obstruction Category: Medical (2) Delirium Current Visit: Yes Status: Acute Code(s): R41.0 - Disorientation, unspecified Category: Medical (3) DVT prophylaxis Current Visit: Yes Status: Acute Category: Medical (4) Ileus following gastrointestinal surgery Current Visit: Yes Status: Acute Code(s): K91.3 - Postprocedural intestinal obstruction Category: Medical
[2017-07-16 19:14] VITALS: BP 133/60; RESP 18; TEMP 98; O2SAT 93
--- NOTE | 2017-07-17 12:54 | PT AM DAY ---
Diagnosis : Weakness AM - Physical Therapy S: The patient reports everyday he feels like he is getting better. O: Today's therapy consisted of the patient performing bed mobility with min assist followed by ambulating all the way downstairs to therapy with walker , gait belt, and contact guard assistance. He then performed therapeutic exercises and functional activities including arm bike, seated open chain exercises in all planes, sit to stands with the #2 box, modified balance grid, and box step ups. The patient then ambulated all the way back upstairs to his room with walker, gait belt, and contact guard assistance. A: The patient has shown great improvement with his endurance. P: Continue seeing patient BID during the week and one time per day over the weekend for transfers, ambulation, and range of motion/strengthening exercises. ELIZA
== END 2017-07-16 20:01 | DRG 337 ==
LOC: ER 22:40 → MED/SURG 07-05 01:35 → OPS 07-05 14:13 → MED/SURG 07-05 16:23
PROVIDERS: ADMIT Internal Medicine; ATTEND Internal Medicine

== ENCOUNTER 2017-07-20 10:24 | Inpatient (IN) ==
[2017-07-20] MEDS ORDERED: LIDOCAINE W/ SODIUM BICARB 0.5 ML SYR SUBD PRN (10:39)
[2017-07-20] MEDS ORDERED: ALBUTEROL SULFATE 8.5 GM HFA INHALER INH PRN (10:42)
[2017-07-20] MEDS ORDERED: Non-Formulary Drug (Denosumab [Prolia] 1 ML) SUBCUT SCH (10:45)
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
--- NOTE | 2017-07-20 10:51 | DCSUMMARY ---
Hospitalization Summary Hospital Course: See my H&P of inpatient admission Patient Problems - Patient Problem List (1) UTI (urinary tract infection) Status: Acute Code(s): N39.0 - Urinary tract infection, site not specified Category: Medical (2) Elevated WBC count Status: Acute Code(s): D72.829 - Elevated white blood cell count, unspecified Category: Medical (3) Abnormal urinalysis Status: Acute Code(s): R82.90 - Unspecified abnormal findings in urine Category: Medical
[2017-07-20] MEDS: NORMAL SALINE 10 ML SYRINGE FLUSH IVP PRN (11:41)
[2017-07-20] MEDS: cefTRIAXone Inj 2 GM in Sodium Chloride 0.9% 100 ML IV SCH (11:41)
--- NOTE | 2017-07-20 12:14 | OT.PROG ---
Progress Note Progress Note: S: pt was accompanied by his . He was in good mood, but complained of neck pain. O: pt was seen in a seated position in his recliner. He scooted forward in his chair and needed mod A to complete sit to stand and completed transfer to bed approx 4-5 ft but needed cues to complete each step. He needed MAx A with bed mobility into bed and positioning. He then completed UE AROM activities with BUE 's. He displays good ROM in BUE's. He was left supine with heat on neck. A: pt's overall medical status and decreased his ability to complete therapy. He was only a x1 man assist transfer but maintain CGA at all times. Vc was necessary today to take simple steps. P: continue Per POC.
[2017-07-20] MEDS: ACETAMINOPHEN WITH CODEINE 300 MG/30 MG TABLET PO PRN ×2 (15:48→21:44)
--- NOTE | 2017-07-20 17:13 | OT.PROG ---
Progress Note Progress Note: S; pt stated he needed to use restroom. Once arrive in the bathroom, pt became very agitated that therapist was trying to help and began yelling and cussing at therapist. Pt eventually apologized for his behavior. O: pt was seen in his room and completed x2 toilet transfer with CGA at all times. He needed Mod a with toileting. He also needed vc's to stay on task during ambulation. pt was left upright in chair with call light within reach and alarm on. A: pt was upset today during therapy. He would continue to benefit from therapy to increase his overall function especially during ambulating. He continues to need vc's to stay on task as reminder to keep walking during transfers. Pt may benefit from 24 hr care. P: continue per POC.
--- NOTE | 2017-07-20 17:35 | PT.PROG ---
Progress Note Progress Note: S. Patient stated that he is feeling ok this morning, however is tired after OT. O. Patient performed seated exercises in the form of; marches, heel toe raises, long arc quads, Pillow squeezes, resisted knee flexion, clamshells, all x 10 bilaterally with red thera-band, sit to stands x 5, then ambulated 10 feet to his chair where he was left with alarm and call light. A. Patient tolerated exercise fair, today, he became very tired and aggravated during therapy, however apologized after becoming aggravated. He continues to require frequent cues and Mod assist with transfers. Patient continues to be weak and would continue to benefit from skilled therapy at this time. P. Continue POC.
[2017-07-20] MEDS: Pravastatin Tab 40 MG TAB PO SCH (21:44)
[2017-07-20] MEDS: Calcium/Vit D 600mg/400u Tab 1 TAB TABLET PO SCH (21:45)
[2017-07-20] MEDS: Metoprolol TARTRATE Tab 25 MG TAB PO SCH (21:45)
[2017-07-21] MEDS ORDERED: HEPARIN 500 UNIT/5 ML SYRINGE FOR CENTRAL LINE IVP ONE (04:58)
[2017-07-21 05:23] LABS: BASOPHILS # (AUTO) 0.05 10*3/UL; BASOPHILS % (AUTO) 0.3 % (0-1); EOSINOPHILS # (AUTO) 0.25 10*3/UL; EOSINOPHILS % (AUTO) 1.3 % (0-8); Hematocrit [HCT] 33.2 % (42.0-52.0); Hemoglobin [HGB] 10.8 g/dL (14.0-18.0); LYMPHOCYTES # (AUTO) 1.19 10*3/uL; MEAN CORPUSCULAR HEMOGLOBIN 30.1 PG (27-31); MEAN CORPUSCULAR HGB CONC 32.5 g/dL (33-37); MEAN CORPUSCULAR VOLUME 92.5 FL (80-90); MEAN PLATELET VOLUME 9.6 FL (7.4-12.2); MONOCYTES # (AUTO) 1.31 10*3/UL (0.3-0.8); NEUTROPHILS # (AUTO) 15.86 10*3/UL; NEUTROPHILS % (AUTO) 84.6 % (50-80); RED BLOOD COUNT 3.59 10^6/uL (4.70-6.10)
[2017-07-21 05:32] LABS: BLOOD UREA NITROGEN 11 mg/dL (7-22); BUN/CREATININE RATIO 15.71 (6-20); SERUM ALBUMIN 3.2 g/dL (3.5-4.8)
[2017-07-21 05:37] LABS: PLATELET MORPHOLOGY COMMENT NORMAL MORPHOLOGY (NORM); RBC MORPHOLOGY COMMENT NORMAL MORPHOLOGY (NORM); WBC MORPHOLOGY COMMENT SEE COMMENTS (NORM)
[2017-07-21] MEDS: ACETAMINOPHEN WITH CODEINE 300 MG/30 MG TABLET PO PRN ×4 (08:03→23:12)
[2017-07-21] MEDS: Metoprolol TARTRATE Tab 25 MG TAB PO SCH ×2 (08:06→20:09)
[2017-07-21] MEDS: ASCORBIC ACID 500 MG TABLET PO SCH (08:07)
[2017-07-21] MEDS: OMEPRAZOLE 40 MG CAPSULE PO SCH (08:10)
--- NOTE | 2017-07-21 08:23 | PDOC(PROG) ---
Interval History: Doing great and has no complaints I saw him downstairs and physical therapy Objective : Data - Labs CBC and BMP: 07/21/17 05:05 07/21/17 05:05 Objective : Exam - Head Head Exam: Normal Inspection - Eye Eye Exam: Normal Appearance - GI/Abdominal GI/Abdominal Exam: Non Tender, Non Distended, Soft - Extremities Extremities Exam: No Clubbing Present, No Edema Present, No Cyanosis Present Assessment and Plan - Patient Problems (1) UTI (urinary tract infection) Current Visit: Yes Status: Acute Comment: Continue Rocephin cultures are pending white count is improved CT scan abdomen and pelvis no acute findings most likely BPH patient on Flomax and IV fluids patient and not really eating or drinking much Code(s): N39.0 - Urinary tract infection, site not specified (2) Elevated WBC count Current Visit: Yes Status: Acute Comment: Improving Code(s): D72.829 - Elevated white blood cell count, unspecified (3) Abnormal urinalysis Current Visit: Yes Status: Acute Code(s): R82.90 - Unspecified abnormal findings in urine
[2017-07-21] MEDS: Calcium/Vit D 600mg/400u Tab 1 TAB TABLET PO SCH ×2 (08:55→20:08)
--- NOTE | 2017-07-21 10:47 | OT.PROG ---
Progress Note Progress Note: S: Pt. reports that he is feeling well today. During therapy session, he reported that he feels he has gained a little confidence with strength and walking today. O: Pt. was seen on 07/21/17 for 30 minutes of therapy. Pt. ambulated 2 X 20' and completed safe transfers with the use of 2WW, extra time and SBA for safety. Pt completed sit to stands X4 with min. A. Pt. transported to therapy in w/c and completed the following bilateral UE exercises with RTB; shoulder flexion X 10, horizontal abduction X 10, biceps X 10, red digi flex X 30, shoulder retraction X 10, triceps X 10, and shoulder extension X 4. Pt tolerated sitting edge of mat X 10 min. unsupported and completed the following LE exercises; bilateral marching 2# X 20, LAQ 2# X 20, hip adduction, and abduction. Following therapy session, pt was returned to chair with call light in place. A: Pt. tolerated all therapeutic exercise well today. He takes extra time during functional mobility tasks, but demonstrated good safety awareness. P: Continue POC. SOFIA Santoyo/Flori
[2017-07-21] MEDS: traMADol 50 MG TABLET PO PRN ×3 (11:07→22:38)
[2017-07-21] MEDS: cefTRIAXone Inj 2 GM in Sodium Chloride 0.9% 100 ML IV SCH (11:08)
[2017-07-21] MEDS: Pravastatin Tab 40 MG TAB PO SCH (20:09)
[2017-07-21] MEDS ORDERED: MORPHINE SULFATE 2 MG/1 ML IVP PRN (20:29)
[2017-07-21] MEDS: NYSTATIN 15 GM POWDER TOPICAL SCH (21:59)
[2017-07-21] MEDS ORDERED: KETOROLAC 15 MG/1 ML VIAL IVP ONE (23:32)
[2017-07-22] MEDS: ACETAMINOPHEN WITH CODEINE 300 MG/30 MG TABLET PO PRN (05:07)
[2017-07-22 05:31] LABS: BASOPHILS # (AUTO) 0.04 10*3/UL; BASOPHILS % (AUTO) 0.3 % (0-1); EOSINOPHILS # (AUTO) 0.27 10*3/UL; EOSINOPHILS % (AUTO) 2.3 % (0-8); Hematocrit [HCT] 33.8 % (42.0-52.0); Hemoglobin [HGB] 10.8 g/dL (14.0-18.0); LYMPHOCYTES # (AUTO) 1.23 10*3/uL; MEAN CORPUSCULAR HEMOGLOBIN 29.6 PG (27-31); MEAN CORPUSCULAR VOLUME 92.6 FL (80-90); MEAN PLATELET VOLUME 10.1 FL (7.4-12.2); MONOCYTES # (AUTO) 1.03 10*3/UL (0.3-0.8); MONOCYTES % (AUTO) 8.6 % (5-15); NEUTROPHILS # (AUTO) 9.38 10*3/UL; NEUTROPHILS % (AUTO) 78.2 % (50-80); RED BLOOD COUNT 3.65 10^6/uL (4.70-6.10)
[2017-07-22 05:32] LABS: PLATELET MORPHOLOGY COMMENT NORMAL MORPHOLOGY (NORM); RBC MORPHOLOGY COMMENT NORMAL MORPHOLOGY (NORM); WBC MORPHOLOGY COMMENT NORMAL MORPHOLOGY (NORM)
[2017-07-22 07:27] LABS: BLOOD UREA NITROGEN 10 mg/dL (7-22); BUN/CREATININE RATIO 16.66 (6-20); SERUM ALBUMIN 3.3 g/dL (3.5-4.8)
[2017-07-22] MEDS: Metoprolol TARTRATE Tab 25 MG TAB PO SCH ×2 (08:28→20:01)
[2017-07-22] MEDS: Calcium/Vit D 600mg/400u Tab 1 TAB TABLET PO SCH ×2 (08:28→20:02)
[2017-07-22] MEDS: NYSTATIN 15 GM POWDER TOPICAL SCH ×3 (08:29→20:03)
[2017-07-22] MEDS: ASCORBIC ACID 500 MG TABLET PO SCH (08:29)
[2017-07-22] MEDS: OMEPRAZOLE 40 MG CAPSULE PO SCH (08:31)
[2017-07-22] MEDS: cefTRIAXone Inj 2 GM in Sodium Chloride 0.9% 100 ML IV SCH (10:32)
[2017-07-22] MEDS ORDERED: CEPHALEXIN 500 MG CAPSULE PO ONE (11:22)
[2017-07-22] MEDS: NORMAL SALINE 10 ML SYRINGE FLUSH IVP PRN (12:02)
[2017-07-22] MEDS: HEPARIN 500 UNIT/5 ML SYRINGE FOR CENTRAL LINE IVP PRN (12:02)
--- NOTE | 2017-07-22 12:26 | PDOC(PROG) ---
Date and Time of Service: 07/22/2017, 1225 Interval History: No chest pain. No shortness of breath. Overall, has been quite confused and has been complaining of neck pain frequently. His states that his confusion is more than just waxing and waning and is been persistent for some time. Patient's afebrile, and overall appears better from admission. Objective : Data - Labs CBC and BMP: 07/22/17 04:50 07/22/17 04:50 Objective : Exam - General General Appearance: No Acute Distress, Cooperative Additional General Exam Details: Vital Signs - Last Taken Temperature 98.6 F 07/22/17 11:25 Pulse Rate 67 07/22/17 11:25 Respiratory Rate 16 07/22/17 11:25 Blood Pressure 112/56 07/22/17 11:25 Pulse Ox 93 07/22/17 11:25 - Eye Eye Exam: No Scleral Icterus - Respiratory Respiratory Exam: Clear to Auscultation - Bilaterally, Breathing Non Labored - Cardiovascular Cardiovascular Exam: RRR, No Murmur, No Clicks, No Gallops, No Rubs, No JVD - GI/Abdominal GI/Abdominal Exam: Normal Bowel Sounds, Non Tender, Non Distended, Soft Additional GI/Abdominal Exam Details: Incision looks very good, healed, clean, dry, intact - Exam: Joshi Catheter in Place (Urine appears clear.) - Extremities Extremities Exam: No Clubbing Present, No Edema Present, No Cyanosis Present - Neurological Neurological Exam: Alert, No Facial Droop, Moves All Extremities Equally Additional Neurological Exam Details: Oriented to person, but not to time or situation. His dementia is bad enough that I think he needs support with his medical decision-making. Assessment and Plan - Patient Problems (1) Escherichia coli urinary tract infection Current Visit: Yes Status: Acute Code(s): N39.0 - Urinary tract infection, site not specified; B96.20 - Unspecified Escherichia coli [E. coli] as the cause of diseases classified elsewhere (2) Normal pressure hydrocephalus Current Visit: Yes Status: Acute Code(s): G91.2 - (Idiopathic) normal pressure hydrocephalus (3) Dementia Current Visit: Yes Status: Acute Code(s): F03.90 - Unspecified dementia without behavioral disturbance Qualifiers: Dementia type: unspecified type Dementia behavioral disturbance: without behavioral disturbance Qualified Code(s): F03.90 - Unspecified dementia without behavioral disturbance (4) HTN (hypertension) Current Visit: No Status: Acute Code(s): I10 - Essential (primary) hypertension Qualifiers: Hypertension type: essential hypertension Qualified Code(s): I10 - Essential (primary) hypertension (5) Antalgic gait Current Visit: Yes Status: Chronic Code(s): R26.89 - Other abnormalities of gait and mobility - Assessment / Plan Additional Assessment/Plan Details: This urinary tract infection was present on admission to the acute hospital stay. The catheter was not in place during the swing bed that I am aware of. I will have the catheter removed today. Stop IV fluids. Change antibiotics from Rocephin to Keflex. Treat minimum of 5 days, possibly 7. Overall, the patient's dementia and possible normal pressure hydrocephalus without known response to high-volume tap, I think the patient would be best served by alf therapy. He should have further normal pressure hydrocephalus evaluation with neurosurgery if he can recover from the acute and recent ailments related to his obstruction and subsequent ileus. Those issues seem to be resolved, but the patient is still quite weakened. I discussed the plan in detail with the patient's who agrees with the plan. Patient has continued neck pain, will review imaging that has been done and see if we need to do anything further to explore.
[2017-07-22] MEDS ORDERED: CYANOCOBALAMIN 1000 MCG/1 ML VIAL IM ONE (12:41)
[2017-07-22] MEDS ORDERED: Influenza Vacc-Egg Free 17-18 180mcg/0.5ml PF Syringe(18yr+) IM ONE (12:43)
[2017-07-22] MEDS: ACETAMINOPHEN 325 MG TABLET PO PRN ×2 (14:49→20:15)
[2017-07-22] MEDS: Pravastatin Tab 40 MG TAB PO SCH (20:01)
[2017-07-22] MEDS: CEPHALEXIN 500 MG CAPSULE PO SCH (20:01)
[2017-07-23] MEDS: ACETAMINOPHEN 325 MG TABLET PO PRN ×3 (01:49→22:00)
[2017-07-23] MEDS: HEPARIN 500 UNIT/5 ML SYRINGE FOR CENTRAL LINE IVP PRN (05:11)
[2017-07-23 05:47] LABS: BASOPHILS # (AUTO) 0.05 10*3/UL; BASOPHILS % (AUTO) 0.6 % (0-1); EOSINOPHILS # (AUTO) 0.36 10*3/UL; EOSINOPHILS % (AUTO) 4.4 % (0-8); Hemoglobin [HGB] 11.6 g/dL (14.0-18.0); LYMPHOCYTES # (AUTO) 1.15 10*3/uL; MEAN CORPUSCULAR HEMOGLOBIN 29.4 PG (27-31); MEAN CORPUSCULAR HGB CONC 32.2 g/dL (33-37); MEAN CORPUSCULAR VOLUME 91.4 FL (80-90); MEAN PLATELET VOLUME 10.2 FL (7.4-12.2); MONOCYTES # (AUTO) 0.71 10*3/UL (0.3-0.8); MONOCYTES % (AUTO) 8.8 % (5-15); NEUTROPHILS # (AUTO) 5.81 10*3/UL; NEUTROPHILS % (AUTO) 71.9 % (50-80); RED BLOOD COUNT 3.94 10^6/uL (4.70-6.10)
[2017-07-23 05:54] LABS: PLATELET MORPHOLOGY COMMENT NORMAL MORPHOLOGY (NORM); RBC MORPHOLOGY COMMENT NORMAL MORPHOLOGY (NORM); WBC MORPHOLOGY COMMENT NORMAL MORPHOLOGY (NORM)
[2017-07-23 06:04] LABS: BLOOD UREA NITROGEN 11 mg/dL (7-22); BUN/CREATININE RATIO 15.71 (6-20)
[2017-07-23] MEDS: CEPHALEXIN 500 MG CAPSULE PO SCH ×2 (08:38→21:49)
[2017-07-23] MEDS: Metoprolol TARTRATE Tab 25 MG TAB PO SCH ×2 (08:38→21:48)
[2017-07-23] MEDS: ASCORBIC ACID 500 MG TABLET PO SCH (08:38)
[2017-07-23] MEDS: OMEPRAZOLE 40 MG CAPSULE PO SCH (08:39)
[2017-07-23] MEDS: Calcium/Vit D 600mg/400u Tab 1 TAB TABLET PO SCH ×2 (08:39→21:48)
[2017-07-23] MEDS: NYSTATIN 15 GM POWDER TOPICAL SCH ×3 (10:40→21:49)
--- NOTE | 2017-07-23 12:47 | PT AM DAY ---
Diagnosis : Weakness AM - Physical Therapy S: The patient is complaining of increased headaches as the day goes on each day. O: The patient ambulated to the elevators. He was brought to the therapy department by PT. We worked on mat skills, lower extremity strengthening and stretching, upper extremity strengthening, and transfers. A: The patient's mobility was much better than it was on Sunday. P: Continue seeing patient BID during the week and one time per day over the weekend for transfers, ambulation, and range of motion/strengthening exercises. ELIZA
--- NOTE | 2017-07-23 14:38 | OT AM DAY ---
Diagnosis : Weakness AM - Occupational Therapy S: The patient stated that he did not even know he was in the hospital. The patient was not very talkative today. He states that he does have to use the restroom but forgets about it very quickly and goes about his business. O: The patient was seen in his room. He completed lower extremity dressing with mod assist. He completed transfer approximately 4-5 feet with cues to remain safe; he continues to abandon his walker and he needs cues to hold onto it. The patient was taken downstairs where he completed functional activities to increase his overall strength and motion of his upper extremities with shoulder press, rows, and upper extremity abduction. The patient completed approximately four transfers today; always with contact guard assist as he is a fall risk. A: The patient will continue to benefit from therapy, possibly in a residential with 24-hour care. He continues to be unsafe and confused and continues to be a fall risk. P: Continue seeing patient BID during the week and one time per day over the weekend for upper extremity strengthening, ADLs, and overall functional mobility. ELIZA
[2017-07-23] MEDS: TAMSULOSIN 0.4 MG CAPSULE PO SCH (16:37)
--- NOTE | 2017-07-23 17:20 | PT.PROG ---
Progress Note Progress Note: S. Patient stated that he is feeling ok this morning, however is tired after OT. O. Patient performed seated exercises in the form of; marches, heel toe raises, long arc quads, Pillow squeezes, resisted knee flexion, clamshells, all x 10 bilaterally with red thera-band, sit to stands x 5, then ambulated 10 feet to his chair where he was left with alarm and call light. A. Patient tolerated exercise fair, today, Patient continues to be impulsive and continues to be weak and would continue to benefit from skilled therapy at this time. P. Continue POC.
--- NOTE | 2017-07-23 19:15 | PDOC(PROG) ---
Date and Time of Service: 07/23/2017 191 Interval History: No chest pain, shortness breath, nausea or vomiting. Urination frequency has increased, but no fevers or chills. Catheter is out. Objective : Data - Labs CBC and BMP: 07/23/17 05:00 07/23/17 05:00 Objective : Exam - General General Appearance: No Acute Distress, Cooperative Additional General Exam Details: Vital Signs - Last Taken Temperature 98.1 F 07/23/17 17:00 Pulse Rate 73 07/23/17 17:00 Respiratory Rate 16 07/23/17 17:00 Blood Pressure 163/70 07/23/17 17:00 Pulse Ox 97 07/23/17 17:00 - Eye Eye Exam: No Scleral Icterus - ENT ENT Exam: Mucous Membranes Moist - Respiratory Respiratory Exam: Clear to Auscultation - Bilaterally, Breathing Non Labored - Cardiovascular Cardiovascular Exam: RRR, No Murmur, No Clicks, No Gallops, No Rubs, No JVD - GI/Abdominal GI/Abdominal Exam: Normal Bowel Sounds, Non Tender, Non Distended, Soft - Extremities Extremities Exam: No Clubbing Present, No Edema Present, No Cyanosis Present - Neurological Neurological Exam: Alert, No Facial Droop, Speech Intact / Clear, Moves All Extremities Equally Additional Neurological Exam Details: Oriented to person and place, not to situation. - Psychiatric Psychiatric Exam: Normal Affect, Normal Mood Assessment and Plan - Patient Problems (1) Escherichia coli urinary tract infection Current Visit: Yes Status: Acute Comment: Present on admission to the hospital. On day #3 of antibiotics. Code(s): N39.0 - Urinary tract infection, site not specified; B96.20 - Unspecified Escherichia coli [E. coli] as the cause of diseases classified elsewhere (2) Normal pressure hydrocephalus Current Visit: Yes Status: Acute Code(s): G91.2 - (Idiopathic) normal pressure hydrocephalus (3) Dementia Current Visit: Yes Status: Acute Code(s): F03.90 - Unspecified dementia without behavioral disturbance Qualifiers: Dementia type: unspecified type Dementia behavioral disturbance: without behavioral disturbance Qualified Code(s): F03.90 - Unspecified dementia without behavioral disturbance (4) HTN (hypertension) Current Visit: No Status: Acute Code(s): I10 - Essential (primary) hypertension Qualifiers: Hypertension type: essential hypertension Qualified Code(s): I10 - Essential (primary) hypertension (5) Antalgic gait Current Visit: Yes Status: Chronic Code(s): R26.89 - Other abnormalities of gait and mobility - Assessment / Plan Additional Assessment/Plan Details: Continue by mouth antibiotics. Referral is been put in place for [facility], as patient will require probable long-term PT and OT. Patient should have continuous lumbar puncture or high-volume tap to determine if a shunt benefit him for ataxia and memory problems, but I suspect dementia is long-standing. No labs tomorrow. Start Flomax.
[2017-07-23] MEDS: Pravastatin Tab 40 MG TAB PO SCH (21:48)
[2017-07-24] MEDS: ACETAMINOPHEN 325 MG TABLET PO PRN ×2 (03:14→20:40)
[2017-07-24] MEDS ORDERED: KETOROLAC 15 MG/1 ML VIAL IVP ONE (05:37)
[2017-07-24] MEDS: Metoprolol TARTRATE Tab 25 MG TAB PO SCH ×2 (09:24→20:31)
[2017-07-24] MEDS: TAMSULOSIN 0.4 MG CAPSULE PO SCH (09:26)
[2017-07-24] MEDS: CEPHALEXIN 500 MG CAPSULE PO SCH ×2 (09:26→20:31)
[2017-07-24] MEDS: ASCORBIC ACID 500 MG TABLET PO SCH (09:27)
[2017-07-24] MEDS: OMEPRAZOLE 40 MG CAPSULE PO SCH (09:27)
[2017-07-24] MEDS: Calcium/Vit D 600mg/400u Tab 1 TAB TABLET PO SCH ×2 (09:28→20:32)
[2017-07-24] MEDS ORDERED: SUMAtriptan Succinate 6 MG/0.5 ML SUBCUT PRN (09:29)
[2017-07-24] MEDS: NYSTATIN 15 GM POWDER TOPICAL SCH ×3 (09:29→20:57)
--- NOTE | 2017-07-24 09:46 | PTI REPORT ---
Thank you for the referral of Nixon Manriquez. He was seen on 07/20/17 for an inpatient evaluation secondary to weakness. SUBJECTIVE: The patient is an 81-year-old male. The patient reports he is feeling very depressed. He states at this point he doesn't know if he will ever get to go home. He also complains of times where he feels like he is not able to think clearly and feels increased pressure in his head. The patient has been seen by physical therapy as an outpatient multiple times for neck, shoulder, and knees. PAST MEDICAL HISTORY: Past medical history can be found in the patient's medical record. OBJECTIVE FINDINGS: Pain: The patient reports a generalized pain level anywhere from a 4 to 7/10 on the verbal analog scale (0=no pain, 10=worst pain). His greatest complaint of pain is his knees at this time. Bed mobility: The patient was able to perform bed mobility with moderate assistance x1 for proper verbal cues for propre hand placement. Transfers: The patient was able to perform a sit to stand transfer with mod assist with use of gait belt. Ambulation: The patient ambulated 10 feet from his chair to the bathroom before requiring a rest. Range of motion: The patient has bilateral knee contractures and is unable to stand up completely erect. Strength: His core strength at best is 3+/5 as being able to sit edge of bed unsupported. His lower extremity generalized strength at best is 3+/5. Ambulation: The patient ambulates at this time with use of front wheeled walker but requires tactile and verbal cues for proper hand placement for safety; when it comes to transfers, the patient tends to not reach for a chair or turn all the way around before sitting. He also tends to attempt to pull himself into a standing position reaching for his walker as opposed to pushing up from the arms of a chair. ASSESSMENT: Problem List: Decreased safety awareness Decreased lower extremity strength Decreased endurance Decreased balance Short-Term Goals: To be met by discharge from inpatient: Patient will be able to ambulate up to 150 feet in preparation for swingbed status. Patient will be able to perform all bed mobilities and transfers safely without the use of verbal cues. Patient will increase core and lower extremity strength to at least 4-/5. Long-Term Goals: To be met following discharge from inpatient: Patient will be seen by outpatient physical therapy. TREATMENT PLAN: Patient will be seen B.I.D during the week and one time per day over the weekend as an inpatient to address the above goals and objectives. INITIAL TREATMENT: Treatment today consisted of the inpatient evaluation followed by ambulation x10 feet x2. The patient required mod assist for toileting, ADLs, and safety awareness. The patient also performed open chain seated exercises, sit to stands, and modified standing incline board against the wall only. ELIZA
--- NOTE | 2017-07-24 10:41 | OT PM DAY ---
Diagnosis : Weakness PM - Occupational Therapy S: The patient states he is a little tired this afternoon but is willing to participate. O: Today we worked on upper extremity strengthening activities including wall pulleys with two kilograms for shoulder extension, adduction, rows, internal/external rotation, and biceps curls x15 repetitions each followed by power web and digi-flex for hand strength. A: The patient was able to perform tasks with cues to stay focused. P: Continue seeing patient BID during the week and one time per day over the weekend for upper extremity strengthening, ADLs, and overall functional mobility. ELIZA
--- NOTE | 2017-07-24 10:55 | PT PM DAY ---
Diagnosis : Weakness PM - Physical Therapy S: The patient is complaining of a lot of headaches. He states he feels like his eyes are going to explode by the afternoon and that he usually feels better first thing in the morning. O: The patient was brought to the department via wheelchair. He was able to ambulate 40-50 feet today with verbal encouragement and assist of one. He received passive range of motion for the lower extremities and performed light strengthening, mat work, transfers, upper extremity strengthening, and overall cardiovascular activities on the NuStep. A: The patient is still not doing as well as he was last Sunday. P: Continue seeing patient BID during the week and one time per day over the weekend for transfers, ambulation, and range of motion/strengthening exercises. ELIZA
--- NOTE | 2017-07-24 11:23 | OT AM DAY ---
Diagnosis : Weakness AM - Occupational Therapy S: The patient was in better spirits today and was very talkative. O: The patient was seen in his room after shower. He completed lower extremity and upper extremity dressing with mod assist. The patient then transferred with use of walker approximately [address] to therapy. The patient's knees began to hurt once we arrived in therapy. He completed upper body ergometer x8 minutes to increase his activity tolerance. The patient then transferred to mat table for PT. A: The patient appears to be in better spirits today. He is moving much better and he was not as sleepy today. P: Continue seeing patient BID during the week and one time per day over the weekend for upper extremity strengthening, ADLs, and overall functional mobility. The patient may benefit from 24-hour care upon discharge. ELIZA
--- NOTE | 2017-07-24 13:19 | PDOC(PROG) ---
Date and Time of Service: 07/24/2017, 1316 Interval History: No chest pain, shortness breath, nausea or vomiting. Had a bad headache and neck pain last night but completely resolved now. His wonders whether or not this might be related to normal pressure hydrocephalus and wonders about spinal tap and to see if that would help, but the description the patient is for the headaches, along with his , as the patient does have some dementia and confusion, is this: Headaches tend to be centralized on the forehead, and associated with some vision changes and occasionally nausea. They seem to be persistent and last for several hours when they occur. The neck pain is a new component for the patient although he has had significant workup for this in the past as it was felt that these could be tension headaches. They do not lateralize. The patient has increased facial sensitivity with his headaches. Objective : Data - Labs CBC and BMP: 07/23/17 05:00 07/23/17 05:00 Objective : Exam - General General Appearance: No Acute Distress, Cooperative Additional General Exam Details: Vital Signs (24 hrs) Temp Pulse Pulse Resp BP Pulse Ox 07/24/17 12:15 97.7 F 66 18 136/70 94 07/24/17 09:30 80 128/69 07/24/17 07:00 73 18 134/73 92 07/24/17 05:00 73 20 139/64 91 07/24/17 00:37 97.9 F 89 20 139/72 92 07/23/17 21:00 97.8 F 91 20 142/70 91 07/23/17 19:00 64 73 16 07/23/17 17:00 98.1 F 73 16 163/70 97 - Eye Eye Exam: No Scleral Icterus - ENT ENT Exam: Mucous Membranes Moist - Respiratory Respiratory Exam: Clear to Auscultation - Bilaterally, Breathing Non Labored - Cardiovascular Cardiovascular Exam: RRR, No Murmur, No Clicks, No Gallops, No Rubs, No JVD - GI/Abdominal GI/Abdominal Exam: Normal Bowel Sounds, Non Tender, Non Distended, Soft - Extremities Extremities Exam: No Clubbing Present, No Edema Present, No Cyanosis Present - Neurological Neurological Exam: Alert, No Facial Droop, Speech Intact / Clear, Moves All Extremities Equally - Psychiatric Psychiatric Exam: Normal Affect, Normal Mood Assessment and Plan - Patient Problems (1) Escherichia coli urinary tract infection Current Visit: Yes Status: Acute Code(s): N39.0 - Urinary tract infection, site not specified; B96.20 - Unspecified Escherichia coli [E. coli] as the cause of diseases classified elsewhere (2) Headache Current Visit: Yes Status: Acute Code(s): R51 - Headache Qualifiers: Headache type: other headache syndrome Qualified Code(s): G44.89 - Other headache syndrome (3) Normal pressure hydrocephalus Current Visit: Yes Status: Acute Code(s): G91.2 - (Idiopathic) normal pressure hydrocephalus (4) Dementia Current Visit: Yes Status: Acute Code(s): F03.90 - Unspecified dementia without behavioral disturbance Qualifiers: Dementia type: unspecified type Dementia behavioral disturbance: without behavioral disturbance Qualified Code(s): F03.90 - Unspecified dementia without behavioral disturbance (5) HTN (hypertension) Current Visit: No Status: Acute Code(s): I10 - Essential (primary) hypertension Qualifiers: Hypertension type: essential hypertension Qualified Code(s): I10 - Essential (primary) hypertension (6) Antalgic gait Current Visit: Yes Status: Chronic Code(s): R26.89 - Other abnormalities of gait and mobility (7) Cervical stenosis of spinal canal Current Visit: Yes Status: Chronic Code(s): M48.02 - Spinal stenosis, cervical region - Assessment / Plan Additional Assessment/Plan Details: Urine infection is significantly better, resolved clinically. I'll put in an date on antibiotics. Today is day #5 of 7. The patient continues to suffer from headaches. His history is somewhat confusing as a suggest trigeminal neuralgia, possible migraines, and could have tension components as well. It is a mixed headache picture. They may be reasonable with nausea, visual changes, and aura like symptoms to treat it with triptan's and see if the patient improves. I would like to keep him here and see if his headaches recur. If they do then we'll try Imitrex. I have written for that. Hopefully distal to [facility] this week. But I would like to try to see if we can find something to help these headaches first. Continue PT and OT. The patient may benefit from continuous CSF fluid evaluation with a neurosurgeon to determine whether shunt might be indicated, but I do believe that the patient's dementia may worsen regardless of any surgical procedure we would do. For example with the cervical stenosis, I do not think he is a good surgical candidate.
--- NOTE | 2017-07-24 14:59 | PT AM DAY ---
Diagnosis : Weakness AM - Physical Therapy S: The patient reports he is feeling pretty good today. O: The patient was able to ambulate all the way downstairs to therapy with front wheeled walker, gait belt, and contact guard assist. He performed therapeutic exercises and functional activities including seated green theraband long arc quads, hamstring curls, resisted hip abduction, seated marches, sit to stands, modified balance grid, box step ups on the #2 box. He then received an application of moist heat pack x20 minutes including set up to his back and bilateral shoulders due to the patient's complaints of pain. This was followed by the patient ambulating 50 feet before back up to his room requiring a wheelchair due to fatigue. A: The patient demonstrated modified independence with stand by assistance only for all transfers today and was much more alert; however, his physical abilities continue to be inconsistent. P: Continue seeing patient BID during the week and one time per day over the weekend for transfers, ambulation, and range of motion/strengthening exercises. ELIZA
[2017-07-24] MEDS: Pravastatin Tab 40 MG TAB PO SCH (20:32)
[2017-07-25] MEDS: ACETAMINOPHEN 325 MG TABLET PO PRN (03:43)
[2017-07-25] MEDS: OMEPRAZOLE 40 MG CAPSULE PO SCH (08:43)
[2017-07-25] MEDS: Calcium/Vit D 600mg/400u Tab 1 TAB TABLET PO SCH (08:43)
[2017-07-25] MEDS: ASCORBIC ACID 500 MG TABLET PO SCH (08:43)
[2017-07-25] MEDS: Metoprolol TARTRATE Tab 25 MG TAB PO SCH (08:44)
[2017-07-25] MEDS: TAMSULOSIN 0.4 MG CAPSULE PO SCH (08:44)
[2017-07-25] MEDS: CEPHALEXIN 500 MG CAPSULE PO SCH (08:44)
[2017-07-25] MEDS: NYSTATIN 15 GM POWDER TOPICAL SCH (09:48)
--- NOTE | 2017-07-25 11:27 | PT.PROG ---
Progress Note Progress Note: Nusing suggested Hold on therapy this morning due to patient having a bad night last night.
[2017-07-25 12:26] VITALS: BP 150/64; RESP 18; TEMP 97.9; O2SAT 93
--- NOTE | 2017-07-25 14:03 | DCSUMMARY ---
Hospitalization Summary Admit Date: 07/20/17 Discharge Date: 07/25/17 Primary Diagnosis:: urinary tract infection, present on admission Secondary Diagnosis:: Antalgic gait possibly secondary to normal pressure hydrocephalus versus other. There is moderate to severe cervical spinal stenosis as well. Hospital Course: This very pleasant 81-year-old male who had been in the hospital here in relation to a bowel obstruction secondary to adhesions, and was on the swing bed covering from that. He developed fever and chills and an elevated white blood cell count so was readmitted with a urinary tract infection, present on admission. He was placed on Rocephin and this was later D escalated to Keflex when we realized it was an Escherichia coli urinary tract infection. The patient is tolerated well, his white blood cell count normalized, and his fevers resolved. We continue to have the patient work with physical therapy and occupational therapy. It is quite clear that he is still antalgic and is weak. He needs continued therapy. In discussion with the patient, his , and they're interested parties, we feel that senior care placement would be best for the patient and the patient and his agreed. In terms of other medical issues, the patient had headaches are fairly persistent. It's difficult to tell whether these arthritic headaches. They occasionally responded to anti-inflammatories on a when necessary basis. They occasionally responded to Imitrex on a when necessary basis, and I wonder based on description of headaches whether they could be mixed migraine headaches. There could be a tension component as well. We also reviewed the medical record and found that the patient had extensive workup in the past and was found to have degenerative cervical spinal stenosis. Patient's blood pressures remained stable through the hospital stay. Other medical issues remained stable through the hospital stay. Today, no completes of chest pain, shortness breath, nausea or vomiting. The patient did have a headache last night and one early this morning, Imitrex helped with the headache this morning and it is gone. Assessment and Plan: 1. As per discharge assessments noted 2. Disposition: Patient is discharged to [facility] (usp facility) 3. Condition on discharge, stable and improved. 4. Diet: regular diet 5. Activities: Per physical therapy 6. Follow-Up: 1. Dr. Yang in [facility], [place] will resume care of the patient 2. Consideration for normal pressure hydrocephalus workup as per Dr. Yang. 7. Medications at the Time of Discharge: Home Medications Medication Instructions Recorded Confirmed Type Ascorbic Acid [Vitamin C] 1 tab PO DAILY 06/04/12 07/17/17 History Calcium Carbonate/Vitamin D3 1 ea PO BID 06/04/12 07/17/17 History [Calcium 600-Vit D3 400 Caplet] Albuterol Sulfate [Proair Hfa] 1 - 2 puff INH Q4-6H PRN #2 puff 10/23/16 History Omeprazole 1 cap PO DAILY #90 cap 11/08/16 07/17/17 Rx Denosumab [Prolia] 1 ml SUBCUT every 6 months #0 ml 12/20/16 07/17/17 Rx Acetaminophen [Tylenol] 650 mg PO Q6H PRN tab 07/25/17 Rx Cephalexin [Keflex] 500 mg PO BID #4 cap 07/25/17 Rx Metoprolol Tartrate Tab 12.5 mg PO BID tab 07/25/17 Rx [Lopressor Tab] Sumatriptan Succinate [Imitrex] 25 mg PO PRN PRN #6 tab 07/25/17 Rx Tamsulosin HCl [Flomax] 0.4 mg PO DAILY cap 07/25/17 Rx 8. Time, care, counseling and coordination of care for this discharge is less than 30 minutes. Exam - Vitals Vital Signs: Vital Signs Temperature 97.9 F Temperature Source Temporal Artery Scan Pulse Rate [Pulse Oximeter] 64 Pulse Rate [Apical] 73 Respiratory Rate 18 Blood Pressure [Left Arm] 150/64 Pulse Ox 93 Oxygen Flow Rate 1 Oxygen Delivery Method Room Air Height 5 ft 9 in Weight 194 lb 11.2 oz - General General Appearance: No Acute Distress, Cooperative - Head Head Exam: Normal Inspection, Normocephalic, Atraumatic - Eye Eye Exam: POSITIVE: No Scleral Icterus - ENT ENT Exam: POSITIVE: Mucous Membranes Moist - Respiratory Respiratory Exam: POSITIVE: Clear to Auscultation - Bilaterally, Breathing Non Labored - Cardiovascular Cardiovascular Exam: POSITIVE: RRR, No Murmur, No Clicks, No Gallops, No Rubs, No JVD - GI/Abdominal GI/Abdominal Exam: POSITIVE: Normal Bowel Sounds, Non Tender, Non Distended, Soft - Extremities Extremities Exam: POSITIVE: No Clubbing Present, No Edema Present, No Cyanosis Present - Neurological Neurological Exam: POSITIVE: Alert, No Facial Droop, Speech Intact / Clear, Moves All Extremities Equally Additional Neurological Exam Details: oriented to person and place, not situation, not to time. - Central Line Examination Central Line Present on Admission: No Data Perinent Studies: Laboratory Results 07/21/17 07/21/17 07/22/17 Range/Units 05:05 05:05 04:50 WBC 18.73 H 11.98 H (4.8-10.8) 10^3/uL RBC 3.59 L 3.65 L (4.70-6.10) 10^6/uL Hgb 10.8 L 10.8 L (14.0-18.0) g/dL Hct 33.2 L 33.8 L (42.0-52.0) % MCV 92.5 H 92.6 H (80-90) FL MCH 30.1 29.6 (27-31) PG MCHC 32.5 L 32.0 L (33-37) g/dL RDW Std Deviation 46.0 45.3 (39-50) fL RDW Coeff of Fernando 13.9 13.7 (11.5-14.5) % Plt Count 288 320 (140-350) 10*3/uL MPV 9.6 10.1 (7.4-12.2) FL Immature Gran % (Auto) 0.4 0.3 (0-5) % Neut % (Auto) 84.6 H 78.2 (50-80) % Lymph % (Auto) 6.4 L 10.3 (10-50) % [place] % (Auto) 7.0 8.6 (5-15) % Eos % (Auto) 1.3 2.3 (0-8) % Baso % (Auto) 0.3 0.3 (0-1) % Immature Gran # (Auto) 0.07 0.03 10*3/UL Neut # (Auto) 15.86 9.38 10*3/UL Lymph # (Auto) 1.19 1.23 10*3/uL [place] # (Auto) 1.31 H 1.03 H (0.3-0.8) 10*3/UL Eos # (Auto) 0.25 0.27 10*3/UL Baso # (Auto) 0.05 0.04 10*3/UL WBC Morphology Comment See comments Normal morphology (NORM) Plt Morphology Comment Normal morphology Normal morphology (NORM) RBC Morph Comment Normal morphology Normal morphology (NORM) Sodium 137 (135-145) meq/L Potassium 3.8 (3.8-5.2) meq/L Chloride 104 (98-112) meq/L Carbon Dioxide 24 (23-33) meq/L Anion Gap 9 (5-20) BUN 11 (7-22) mg/dL Creatinine 0.7 (0.70-1.50) mg/dL Estimated GFR BUN/Creatinine Ratio 15.71 (6-20) Glucose 117 H (78-110) mg/dL Calculated Osmolality 283.0 (267-292) mOsm/kg Calcium 8.4 L (8.7-10.7) mg/dL Total Bilirubin 0.6 (0.3-1.2) mg/dL AST 33 (21-57) IU/L ALT 47 (21-72) IU/L Alkaline Phosphatase 72 (38-126) IU/L Total Protein 6.2 (6.1-8.0) g/dL Albumin 3.2 L (3.5-4.8) g/dL Globulin 3.0 (2.50-4.10) g/dL Albumin/Globulin Ratio 1.00 L (1.3-2.0) mg/g 07/22/17 07/23/17 07/23/17 Range/Units 04:50 05:00 05:00 WBC 8.09 (4.8-10.8) 10^3/uL RBC 3.94 L (4.70-6.10) 10^6/uL Hgb 11.6 L (14.0-18.0) g/dL Hct 36.0 L (42.0-52.0) % MCV 91.4 H (80-90) FL MCH 29.4 (27-31) PG MCHC 32.2 L (33-37) g/dL RDW Std Deviation 43.7 (39-50) fL RDW Coeff of Fernando 13.4 (11.5-14.5) % Plt Count 452 H (140-350) 10*3/uL MPV 10.2 (7.4-12.2) FL Immature Gran % (Auto) 0.1 (0-5) % Neut % (Auto) 71.9 (50-80) % Lymph % (Auto) 14.2 (10-50) % [place] % (Auto) 8.8 (5-15) % Eos % (Auto) 4.4 (0-8) % Baso % (Auto) 0.6 (0-1) % Immature Gran # (Auto) 0.01 10*3/UL Neut # (Auto) 5.81 10*3/UL Lymph # (Auto) 1.15 10*3/uL [place] # (Auto) 0.71 (0.3-0.8) 10*3/UL Eos # (Auto) 0.36 10*3/UL Baso # (Auto) 0.05 10*3/UL WBC Morphology Comment Normal morphology (NORM) Plt Morphology Comment Normal morphology (NORM) RBC Morph Comment Normal morphology (NORM) Sodium 136 138 (135-145) meq/L Potassium 4.7 3.8 (3.8-5.2) meq/L Chloride 103 102 (98-112) meq/L Carbon Dioxide 24 27 (23-33) meq/L Anion Gap 9 9 (5-20) BUN 10 11 (7-22) mg/dL Creatinine 0.6 L 0.7 (0.70-1.50) mg/dL Estimated GFR Methods Engineer BUN/Creatinine Ratio 16.66 15.71 (6-20) Glucose 84 91 (78-110) mg/dL Calculated Osmolality 279.0 284.0 (267-292) mOsm/kg Calcium 8.3 L 8.9 (8.7-10.7) mg/dL Total Bilirubin 0.7 (0.3-1.2) mg/dL AST 79 H (21-57) IU/L ALT 50 (21-72) IU/L Alkaline Phosphatase 110 (38-126) IU/L Total Protein 6.4 (6.1-8.0) g/dL Albumin 3.3 L (3.5-4.8) g/dL Globulin 3.1 (2.50-4.10) g/dL Albumin/Globulin Ratio 1.00 L (1.3-2.0) mg/g Patient Problems - Patient Problem List (1) Escherichia coli urinary tract infection Current Visit: Yes Status: Acute Code(s): N39.0 - Urinary tract infection, site not specified; B96.20 - Unspecified Escherichia coli [E. coli] as the cause of diseases classified elsewhere Category: Medical (2) Headache Current Visit: Yes Status: Acute Code(s): R51 - Headache Qualifiers: Headache type: other headache syndrome Qualified Code(s): G44.89 - Other headache syndrome Category: Medical (3) Normal pressure hydrocephalus Current Visit: Yes Status: Acute Code(s): G91.2 - (Idiopathic) normal pressure hydrocephalus Category: Medical (4) Dementia Current Visit: Yes Status: Acute Code(s): F03.90 - Unspecified dementia without behavioral disturbance Qualifiers: Dementia type: unspecified type Dementia behavioral disturbance: without behavioral disturbance Qualified Code(s): F03.90 - Unspecified dementia without behavioral disturbance Category: Medical (5) HTN (hypertension) Current Visit: No Status: Acute Code(s): I10 - Essential (primary) hypertension Qualifiers: Hypertension type: essential hypertension Qualified Code(s): I10 - Essential (primary) hypertension Category: Medical (6) Antalgic gait Current Visit: Yes Status: Chronic Code(s): R26.89 - Other abnormalities of gait and mobility Category: Medical (7) Cervical stenosis of spinal canal Current Visit: Yes Status: Chronic Code(s): M48.02 - Spinal stenosis, cervical region Category: Medical
--- NOTE | 2017-07-25 15:07 | PT PM DAY ---
Diagnosis : Weakness PM - Physical Therapy S: The patient states he is feeling very well this afternoon. O: The patient ambulated 175 feet to the therapy gym where he performed seated marches, long arc quads, seated clamshells with blue theraband, hamstring curls with blue theraband, and sit to stands x10. He then ambulated 80 feet to the elevator and was then wheeled back to his room. The patient was left in chair with chair alarm on and call light within reach. A: The patient tolerated therapy well. He continues to have some weakness and balance deficiencies. The patient would continue to benefit from skilled therapy at this time. P: Continue seeing patient BID during the week and one time per day over the weekend for transfers, ambulation, and range of motion/strengthening exercises. MTDD
--- NOTE | 2017-07-26 15:51 | OT PM DAY ---
Diagnosis : Weakness PM - Occupational Therapy S: The patient states he is doing okay. He is still demonstrating some confusion and he needs a lot of verbal cues in order to participate. O: We assisted the patient with a bathroom transfer. The patient required contact guard to min assist as well as verbal cues to complete this safely. The patient was able to stand and transfer to therapy. Down in therapy we worked on upper extremity strengthening including the upper body ergometer x10 minutes, wall pulleys in all planes and ranges with two kilograms, and overhead presses with four pound ball. A: The patient participated well but needed cues to stay focused. P: Continue seeing patient BID during the week and one time per day over the weekend for upper extremity strengthening, ADLs, and overall functional mobility. MTDD
== END 2017-07-25 14:43 | DRG 690 ==
LOC: MED/SURG 10:39 → OPS 07-21 07:59 → MED/SURG 07-21 08:17
PROVIDERS: ADMIT Internal Medicine; ATTEND Internal Medicine

== ENCOUNTER 2017-08-11 19:48 | Inpatient (IN) ==
[2017-08-11] MEDS ORDERED: NORMAL SALINE 10 ML SYRINGE FLUSH IVP PRN (20:16)
[2017-08-11] MEDS ORDERED: Sodium Chloride 0.9% 1,000 ML PRIMARY IV ONE (20:16)
[2017-08-11] MEDS ORDERED: LIDOCAINE HCL 2 % 10 ML JELLY URO-JECT TOPICAL PRN (20:25)
[2017-08-11 20:51] LABS: BASOPHILS # (AUTO) 0.03 10*3/UL; BASOPHILS % (AUTO) 0.2 % (0-1); EOSINOPHILS # (AUTO) 0.14 10*3/UL; EOSINOPHILS % (AUTO) 1.2 % (0-8); Hemoglobin [HGB] 12.4 g/dL (14.0-18.0); LYMPHOCYTES # (AUTO) 1.65 10*3/uL; MEAN CORPUSCULAR HEMOGLOBIN 29.5 PG (27-31); MEAN CORPUSCULAR HGB CONC 32.6 g/dL (33-37); MEAN CORPUSCULAR VOLUME 90.3 FL (80-90); MEAN PLATELET VOLUME 9.4 FL (7.4-12.2); MONOCYTES # (AUTO) 1.12 10*3/UL (0.3-0.8); MONOCYTES % (AUTO) 9.3 % (5-15); NEUTROPHILS # (AUTO) 9.12 10*3/UL; NEUTROPHILS % (AUTO) 75.4 % (50-80); RED BLOOD COUNT 4.21 10^6/uL (4.70-6.10)
[2017-08-11 20:53] LABS: BILIRUBIN,URINE SMALL (NEG); CLARITY,URINE CLOUDY (CLEAR); COLOR,URINE YELLOW (Y); GLUCOSE, URINE (UA) NEGATIVE (NEG); NITRATE,URINE POSITIVE (NEG); OCCULT BLOOD,URINE LARGE (NEG); PH,URINE 5.5 (5.0-8.5); PROTEIN,URINE >300 mg/dl (NEG)
[2017-08-11 20:57] LABS: BACTERIA,URINE MANY; RBC,URINE 25-30 /hpf; URINE SAMPLE TYPE CATH SPECIMEN; WBC,URINE >100
[2017-08-11 21:04] LABS: VENOUS PH 7.537 (7.32-7.42)
[2017-08-11 21:04] LABS: BLOOD UREA NITROGEN 20 mg/dL (7-22); BUN/CREATININE RATIO 22.22 (6-20); MAGNESIUM 1.8 mg/dL (1.6-2.4); SERUM ALBUMIN 3.7 g/dL (3.5-4.8)
[2017-08-11 21:06] LABS: PLATELET MORPHOLOGY COMMENT NORMAL MORPHOLOGY (NORM); RBC MORPHOLOGY COMMENT NORMAL MORPHOLOGY (NORM); WBC MORPHOLOGY COMMENT NORMAL MORPHOLOGY (NORM)
[2017-08-11] MEDS ORDERED: cefTRIAXone Inj 1 GM in Sodium Chloride 0.9% 100 ML IV ONE (21:48)
--- NOTE | 2017-08-11 23:37 | DI ---
EXAM: US Retroperitoneal Limited, Renal CLINICAL HISTORY: Physician Notes: Recurrent UTI TECHNIQUE: Real-time ultrasound of the retroperitoneum (limited) with image documentation. COMPARISON: No relevant prior studies available. FINDINGS: Right kidney: Right kidney 10 cm length. No hydronephrosis. Left kidney: Left kidney 10.4 cm length. Small, benign-appearing cyst is noted measuring between 1 and 2 cm. no hydronephrosis. Bladder: Urinary bladder is mostly decompressed with indwelling Joshi catheter, limiting characterization. IMPRESSION: 1. No acute sonographic findings. 2. Urinary bladder evaluation precluded with indwelling Joshi.
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
[2017-08-12] MEDS ORDERED: LIDOCAINE W/ SODIUM BICARB 0.5 ML SYR SUBD PRN (00:34)
[2017-08-12] MEDS ORDERED: ONDANSETRON 4 MG/2 ML VIAL IVP PRN (00:34)
[2017-08-12] MEDS ORDERED: NORMAL SALINE 10 ML SYRINGE FLUSH IVP PRN (00:34)
[2017-08-12] MEDS ORDERED: ACETAMINOPHEN 325 MG TABLET PO PRN (00:34)
[2017-08-12] MEDS ORDERED: Sodium Chloride 0.9% 1,000 ML PRIMARY IV SCH (00:45)
[2017-08-12] MEDS: OMEPRAZOLE 20 MG CAPSULE PO SCH (07:10)
[2017-08-12 08:10] LABS: BASOPHILS # (AUTO) 0.05 10*3/UL; BASOPHILS % (AUTO) 0.5 % (0-1); EOSINOPHILS # (AUTO) 0.24 10*3/UL; EOSINOPHILS % (AUTO) 2.4 % (0-8); Hemoglobin [HGB] 11.6 g/dL (14.0-18.0); LYMPHOCYTES # (AUTO) 1.33 10*3/uL; MEAN CORPUSCULAR HEMOGLOBIN 29.2 PG (27-31); MEAN CORPUSCULAR HGB CONC 32.2 g/dL (33-37); MEAN CORPUSCULAR VOLUME 90.7 FL (80-90); MEAN PLATELET VOLUME 9.5 FL (7.4-12.2); MONOCYTES # (AUTO) 0.87 10*3/UL (0.3-0.8); MONOCYTES % (AUTO) 8.8 % (5-15); NEUTROPHILS # (AUTO) 7.34 10*3/UL; NEUTROPHILS % (AUTO) 74.6 % (50-80); RED BLOOD COUNT 3.97 10^6/uL (4.70-6.10)
[2017-08-12 08:12] LABS: PLATELET MORPHOLOGY COMMENT NORMAL MORPHOLOGY (NORM); RBC MORPHOLOGY COMMENT NORMAL MORPHOLOGY (NORM); WBC MORPHOLOGY COMMENT NORMAL MORPHOLOGY (NORM)
[2017-08-12] MEDS: Metoprolol TARTRATE Tab 25 MG TAB PO SCH ×2 (08:29→21:05)
[2017-08-12] MEDS: TAMSULOSIN 0.4 MG CAPSULE PO SCH (08:30)
[2017-08-12] MEDS ORDERED: cefTRIAXone Inj 1 GM in Sodium Chloride 0.9% 100 ML IV SCH (09:00)
--- NOTE | 2017-08-12 20:46 | DI ---
XR CXR 2VW PA/LAT,08/11/2017 8:16 PM: Clinical History: Fever. Previous Exam: July 13, 2017 Findings: There is some flattening of both hemidiaphragms. There is increased distance of the AP measurement of the chest. There is some osteopenia and anterior wedging of the thoracic spine. Impression: No acute cardiopulmonary disease.
[2017-08-12] MEDS: cefTRIAXone Inj 1 GM in Sodium Chloride 0.9% 100 ML IV SCH (21:00)
[2017-08-12] MEDS: Pravastatin Tab 40 MG TAB PO SCH (21:05)
[2017-08-13] MEDS: OMEPRAZOLE 20 MG CAPSULE PO SCH (07:22)
--- NOTE | 2017-08-13 08:08 | PDOC(PROG) ---
Date and Time of Service: 08/13/2017 8:06 AM Interval History: Subjective Patient was irritated by the catheter so it was just removed. He feels better now. Denying other symptoms. There is no abdominal pain, no fever or chills. Objective : Data - Labs CBC and BMP: 08/12/17 08:00 08/11/17 20:40 Objective : Exam - General General Appearance: No Acute Distress, Cooperative - Head Head Exam: Normal Inspection, Atraumatic - Eye Eye Exam: Normal Appearance - ENT ENT Exam: Normal Exam - Neck Neck Exam: Normal Inspection - Respiratory Respiratory Exam: Clear to Auscultation - Bilaterally - Cardiovascular Cardiovascular Exam: RRR - GI/Abdominal GI/Abdominal Exam: Normal Bowel Sounds, Non Tender, Non Distended, Soft - Rectal Rectal Exam: Deferred - External Exam: Deferred - Extremities Extremities Exam: Normal Inspection - Neurological Neurological Exam: Alert, CN II-XII Intact, No Facial Droop, Speech Intact / Clear, Moves All Extremities Equally - Psychiatric Psychiatric Exam: Normal Affect Assessment and Plan - Patient Problems (1) UTI (urinary tract infection) Current Visit: Yes Status: Acute Comment: Urine is showing growth of gram-negative bacilli who hopefully will have identification today and then we can make a plan after I discuss it with infectious disease about how long we should treat. Code(s): N39.0 - Urinary tract infection, site not specified (2) Dyslipidemia Current Visit: No Status: Acute Onset Date: 04/08/13 Comment: Same med Code(s): E78.5 - Hyperlipidemia, unspecified (3) GERD (gastroesophageal reflux disease) Current Visit: Yes Status: Acute Comment: Same med Code(s): K21.9 - Gastro-esophageal reflux disease without esophagitis
[2017-08-13] MEDS: TAMSULOSIN 0.4 MG CAPSULE PO SCH (09:49)
[2017-08-13] MEDS: Metoprolol TARTRATE Tab 25 MG TAB PO SCH ×2 (09:49→20:25)
[2017-08-13] MEDS: cefTRIAXone Inj 1 GM in Sodium Chloride 0.9% 100 ML IV SCH (20:25)
[2017-08-13] MEDS: Pravastatin Tab 40 MG TAB PO SCH (20:25)
[2017-08-13 23:42] VITALS: O2SAT 91
[2017-08-14] MEDS: OMEPRAZOLE 20 MG CAPSULE PO SCH (07:07)
[2017-08-14 07:59] VITALS: BP 135/80; RESP 18; TEMP 97.6
[2017-08-14] MEDS ORDERED: CEPHALEXIN 500 MG CAPSULE PO SCH (09:00)
--- NOTE | 2017-08-14 09:17 | DCSUMMARY ---
Hospitalization Summary Admit Date: 08/12/17 Discharge Date: 08/14/17 Hospital Course: Discharge diagnoses 1. Recurrent UTI with Escherichia coli 2. COPD 3. Hypertension 4. GERD 5. 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 History of spinal stenosis status post surgery in February 2017 Hospital course This is an 81 years old male with medical history significant for history of GERD, hypercholesteremia, hypertension who had prolonged admission in June 2017 for small bowel obstruction that needed laparotomy and lysis of adhesion his course was complicated by development of prolonged ileus. His status was changed to swing bed status, after the ileus was resolved, as he was weak then, however he developed a urinary tract infection and was readmitted to the inpatient status his white count was elevated at that time , growth of the urine culture showed Escherichia coli he was treated with Rocephin and then he was discharged on Keflex. In total he had 5 days of IV Rocephin and then 2 additional days of oral Keflex that I can see. He was discharged from the hospital to the [facility]. Was brought to the hospital on the because of chills, fever, frequency. In the ER he had a high post residual volume so a catheter was inserted. Also the evaluation suggested urinary tract infection and he was admitted. When I saw him his exam was not much remarkable. His white count when he came in was 12,000. We put him on Rocephin again and the growth did show again Escherichia coli. I did speak with infectious disease because of the recurrent infection we decided to give an additional course of 10 days of Keflex. I'll try to get him an appointment also with urology because of the recurrent infections in addition there was somewhat elevated post residual volume when he came in .the Joshi catheter was irritating him and we removed it while he is here, and he went back to urinary incontinence which was an issue that he had before. On the day of discharge he was denying symptoms did not appear in distress his exam was not much remarkable so we thought he could go back to the [facility] and finish his course as an outpatient. Laboratory Results 08/11/17 08/11/17 08/11/17 Range/Units 20:40 20:40 20:40 WBC 12.08 H (4.8-10.8) 10^3/uL RBC 4.21 L (4.70-6.10) 10^6/uL Hgb 12.4 L (14.0-18.0) g/dL Hct 38.0 L (42.0-52.0) % MCV 90.3 H (80-90) FL MCH 29.5 (27-31) PG MCHC 32.6 L (33-37) g/dL RDW Std Deviation 44.0 (39-50) fL RDW Coeff of Fernando 13.5 (11.5-14.5) % Plt Count 289 (140-350) 10*3/uL MPV 9.4 (7.4-12.2) FL Immature Gran % (Auto) 0.2 (0-5) % Neut % (Auto) 75.4 (50-80) % Lymph % (Auto) 13.7 (10-50) % Gage % (Auto) 9.3 (5-15) % Eos % (Auto) 1.2 (0-8) % Baso % (Auto) 0.2 (0-1) % Immature Gran # (Auto) 0.02 10*3/UL Neut # (Auto) 9.12 10*3/UL Lymph # (Auto) 1.65 10*3/uL Gage # (Auto) 1.12 H (0.3-0.8) 10*3/UL Eos # (Auto) 0.14 10*3/UL Baso # (Auto) 0.03 10*3/UL WBC Morphology Comment Normal morphology (NORM) Plt Morphology Comment Normal morphology (NORM) RBC Morph Comment Normal morphology (NORM) VBG pH (7.32-7.42) VBG pCO2 (45-55) mmHg VBG HCO3 (22-26) mmol/L VBG Base Excess (-2-2) MMOL/L Sodium 139 (135-145) meq/L Potassium 3.8 (3.8-5.2) meq/L Chloride 100 (98-112) meq/L Carbon Dioxide 27 (23-33) meq/L Anion Gap 12 (5-20) BUN 20 (7-22) mg/dL Creatinine 0.9 (0.70-1.50) mg/dL BUN/Creatinine Ratio 22.22 H (6-20) Glucose 99 (78-110) mg/dL Calculated Osmolality 290.0 (267-292) mOsm/kg Lactic Acid 0.8 (0.70-2.10) MMOL/L Calcium 9.2 (8.7-10.7) mg/dL Magnesium 1.8 (1.6-2.4) mg/dL Total Bilirubin 0.7 (0.3-1.2) mg/dL AST 20 L (21-57) IU/L ALT 20 L (21-72) IU/L Alkaline Phosphatase 70 (38-126) IU/L C-Reactive Protein 3.7 H (0.0-0.9) mg/dL Total Protein 7.0 (6.1-8.0) g/dL Albumin 3.7 (3.5-4.8) g/dL Globulin 3.3 (2.50-4.10) g/dL Albumin/Globulin Ratio 1.10 L (1.3-2.0) mg/g Ur Collection Type Cath specimen Urine Color Yellow (Y) Urine Clarity Cloudy A (CLEAR) Urine pH 5.5 (5.0-8.5) Ur Specific [place] 1.025 (1.005-1.030) Urine Protein >300 A (NEG) mg/dl Urine Glucose (UA) Negative (NEG) mg/dL Urine Ketones Trace A (NEG) Urine Occult Blood Large H (NEG) Urine Nitrate Positive H (NEG) Urine Bilirubin Small (NEG) Urine Urobilinogen 1.0 (0.2) EU/dL Ur Leukocyte Esterase Small (NEG) Urine RBC 25-30 (NONE) /hpf Urine WBC >100 H (NONE) Ur Squamous Epith Cells None (NONE) Ur Renal Epithelial Cell None (NONE) Urine Crystals None Urine Bacteria Many H (NONE) Urine Casts None (NONE) Urine Mucus Moderate (NONE) Urine Trichomonas None (NONE) Urine Yeast None (NONE) Ur Culture Indicated? Culture set 08/11/17 08/12/17 Range/Units 20:50 08:00 WBC 9.85 (4.8-10.8) 10^3/uL RBC 3.97 L (4.70-6.10) 10^6/uL Hgb 11.6 L (14.0-18.0) g/dL Hct 36.0 L (42.0-52.0) % MCV 90.7 H (80-90) FL MCH 29.2 (27-31) PG MCHC 32.2 L (33-37) g/dL RDW Std Deviation 43.9 (39-50) fL RDW Coeff of Fernando 13.5 (11.5-14.5) % Plt Count 280 (140-350) 10*3/uL MPV 9.5 (7.4-12.2) FL Immature Gran % (Auto) 0.2 (0-5) % Neut % (Auto) 74.6 (50-80) % Lymph % (Auto) 13.5 (10-50) % Gage % (Auto) 8.8 (5-15) % Eos % (Auto) 2.4 (0-8) % Baso % (Auto) 0.5 (0-1) % Immature Gran # (Auto) 0.02 10*3/UL Neut # (Auto) 7.34 10*3/UL Lymph # (Auto) 1.33 10*3/uL Gage # (Auto) 0.87 H (0.3-0.8) 10*3/UL Eos # (Auto) 0.24 10*3/UL Baso # (Auto) 0.05 10*3/UL WBC Morphology Comment Normal morphology (NORM) Plt Morphology Comment Normal morphology (NORM) RBC Morph Comment Normal morphology (NORM) VBG pH 7.537 H (7.32-7.42) VBG pCO2 29.0 L (45-55) mmHg VBG HCO3 24.6 (22-26) mmol/L VBG Base Excess 2 (-2-2) MMOL/L Sodium (135-145) meq/L Potassium (3.8-5.2) meq/L Chloride (98-112) meq/L Carbon Dioxide (23-33) meq/L Anion Gap (5-20) BUN (7-22) mg/dL Creatinine (0.70-1.50) mg/dL BUN/Creatinine Ratio (6-20) Glucose (78-110) mg/dL Calculated Osmolality (267-292) mOsm/kg Lactic Acid (0.70-2.10) MMOL/L Calcium (8.7-10.7) mg/dL Magnesium (1.6-2.4) mg/dL Total Bilirubin (0.3-1.2) mg/dL AST (21-57) IU/L ALT (21-72) IU/L Alkaline Phosphatase (38-126) IU/L C-Reactive Protein (0.0-0.9) mg/dL Total Protein (6.1-8.0) g/dL Albumin (3.5-4.8) g/dL Globulin (2.50-4.10) g/dL Albumin/Globulin Ratio (1.3-2.0) mg/g Ur Collection Type Urine Color (Y) Urine Clarity (CLEAR) Urine pH (5.0-8.5) Ur Specific [place] (1.005-1.030) Urine Protein (NEG) mg/dl Urine Glucose (UA) (NEG) mg/dL Urine Ketones (NEG) Urine Occult Blood (NEG) Urine Nitrate (NEG) Urine Bilirubin (NEG) Urine Urobilinogen (0.2) EU/dL Ur Leukocyte Esterase (NEG) Urine RBC (NONE) /hpf Urine WBC (NONE) Ur Squamous Epith Cells (NONE) Ur Renal Epithelial Cell (NONE) Urine Crystals Urine Bacteria (NONE) Urine Casts (NONE) Urine Mucus (NONE) Urine Trichomonas (NONE) Urine Yeast (NONE) Ur Culture Indicated? Discharge instruction Diet regular Activity as started Medications Home Medications Medication Instructions Recorded Confirmed Type Ascorbic Acid [Vitamin C] 1 tab PO DAILY 06/04/12 08/11/17 History Calcium Carbonate/Vitamin D3 1 ea PO BID 06/04/12 08/11/17 History [Calcium 600-Vit D3 400 Caplet] Denosumab [Prolia] 1 ml SUBCUT every 6 months #0 ml 12/20/16 08/11/17 Rx Metoprolol Tartrate Tab 12.5 mg PO BID tab 07/25/17 08/11/17 Rx [Lopressor Tab] Tamsulosin HCl [Flomax] 0.4 mg PO DAILY cap 07/25/17 08/11/17 Rx albuterol sulfate HFA 90 1 - 2 puff INH Q4H PRN #2 puff 08/06/17 08/11/17 History mcg/actuation aerosol inhaler omeprazole 20 mg capsule,delayed 20 mg PO DAILY #90 cap 08/06/17 08/11/17 Rx release pravastatin 40 mg tablet 40 mg PO QDAY tab 08/06/17 08/11/17 History Acetaminophen [Tylenol] 650 mg PO Q6H PRN tab 08/14/17 Rx Cephalexin [Keflex] 1,000 mg PO BID cap for 10 days follow-up with PCP in 1-2 weeks 08/14/17 Rx Follow-up with urology 1-2 weeks Condition at discharge was stable for discharge Exam - Vitals Vital Signs: Vital Signs Temperature 97.6 F Temperature Source Temporal Artery Scan Pulse Rate [Pulse Oximeter] 72 Respiratory Rate 18 Blood Pressure [Right Arm] 135/80 Blood Pressure [Left Arm] 117/64 Pulse Ox 91 Oxygen Delivery Method Room Air Height 5 ft 9 in Weight 184 lb 6.4 oz - General General Appearance: No Acute Distress, Cooperative - Head Head Exam: Normal Inspection, Atraumatic - Eye Eye Exam: POSITIVE: Normal Appearance, PERRL, EOMI, No Scleral Icterus - ENT ENT Exam: POSITIVE: Normal Exam - Neck Neck Exam: Normal Inspection - Respiratory Respiratory Exam: POSITIVE: Clear to Auscultation - Bilaterally - Cardiovascular Cardiovascular Exam: POSITIVE: RRR - GI/Abdominal GI/Abdominal Exam: POSITIVE: Normal Bowel Sounds, Non Tender, Non Distended, Soft - Rectal Rectal Exam: POSITIVE: Deferred - External Exam: POSITIVE: Deferred - Extremities Extremities Exam: POSITIVE: Normal Inspection - Back Back Exam: POSITIVE: Normal Inspection - Neurological Neurological Exam: POSITIVE: Alert, CN II-XII Intact, No Facial Droop, Speech Intact / Clear, Moves All Extremities Equally - Psychiatric Psychiatric Exam: POSITIVE: Normal Affect Patient Problems - Patient Problem List (1) UTI (urinary tract infection) Current Visit: Yes Status: Acute Code(s): N39.0 - Urinary tract infection, site not specified Category: Medical (2) Dyslipidemia Current Visit: No Status: Acute Onset Date: 04/08/13 Code(s): E78.5 - Hyperlipidemia, unspecified Category: Medical (3) GERD (gastroesophageal reflux disease) Current Visit: Yes Status: Acute Code(s): K21.9 - Gastro-esophageal reflux disease without esophagitis Category: Medical
[2017-08-14] MEDS: TAMSULOSIN 0.4 MG CAPSULE PO SCH (09:28)
[2017-08-14] MEDS: Metoprolol TARTRATE Tab 25 MG TAB PO SCH (09:28)
== END 2017-08-14 13:00 | DRG 690 ==
LOC: ER 19:48 → MED/SURG 23:59
PROVIDERS: ADMIT Internal Medicine; ATTEND Internal Medicine